=== PATIENT | male | born 1980 | race Hispanic/Latino ===

== ENCOUNTER 2017-06-29 18:13 | Inpatient (IN) | payer BC ==
[2017-06-29] MEDS ORDERED: Iohexol 240 (50 ml) PO ONE (18:38)
--- NOTE | 2017-06-29 18:41 | ED PDOC ---
HPI: General Adult Time Seen by Provider: 06/29/17 18:27 Chief Complaint (Nursing): Chest Pain Chief Complaint (Provider): Cough History Per: Patient History/Exam Limitations: no limitations Onset/Duration Of Symptoms: Days (10) Current Symptoms Are (Timing): Still Present Additional Complaint(s): Pt. with cough, congestion, runny nose, yellow phlegm for 3 days. Body aches, abd pain left side for 10 days. Nausea, nonbloody vomit for 3 days. No weakness, headaches, dizziness. Took oxy for pain. No dysuria. No diarrhea. Past Medical History Reviewed: Nursing Documentation, Vital Signs Vital Signs: Last Vital Signs Temp 99.9 F H 06/29/17 22:23 Pulse 108 H 06/29/17 21:15 Resp 18 06/29/17 21:15 BP 139/81 06/29/17 21:15 Pulse Ox 96 06/29/17 21:15 - Medical History PMH: Crohn's Disease, Diabetes - Surgical History Surgical History: No Surg Hx - Family History Family History: States: Unknown Family Hx - Living Arrangements Living Arrangements: With Family - Social History Current smoker - smoking cessation education provided: No Alcohol: None Drugs: Denies - Allergies Allergies/Adverse Reactions: Allergies Allergy/AdvReac Type Severity Reaction Status Date / Time clarithromycin [From Biaxin] Allergy RASH Verified 06/29/17 18:23 Review of Systems ROS Statement: Except As Marked, All Systems Reviewed And Found Negative Constitutional: Positive for: Chills ENT: Positive for: Nose Pain, Nose Discharge, Nose Congestion Respiratory: Positive for: Cough, Sputum Gastrointestinal: Positive for: Nausea, Vomiting, Abdominal Pain Musculoskeletal: Positive for: Other (body aches) Physical Exam - Reviewed Nursing Documentation Reviewed: Yes Vital Signs Reviewed: Yes - Physical Exam Appears: Positive for: Non-toxic, No Acute Distress Head Exam: Positive for: ATRAUMATIC, NORMAL INSPECTION, NORMOCEPHALIC Skin: Positive for: Normal Color, Warm, DRY Eye Exam: Positive for: EOMI, Normal appearance, PERRL ENT: Positive for: Nasal Congestion Neck: Positive for: Normal, Painless ROM, Supple Cardiovascular/Chest: Positive for: Regular Rate, Rhythm Respiratory: Positive for: CNT, Normal Breath Sounds Gastrointestinal/Abdominal: Positive for: Bowel Sounds, Soft, Tenderness (L side ) Back: Positive for: Normal Inspection Extremity: Positive for: Normal ROM. Negative for: Tenderness, Pedal Edema Neurologic/Psych: Positive for: Alert, Oriented - Laboratory Results Result Diagrams: 06/29/17 18:46 06/29/17 18:46 Interpretation Of Abn Labs: 17.2 wbc, flu pos - ECG ECG: Positive for: Interpreted By Me, Viewed By Me ECG Rhythm: Positive for: Normal QRS, Normal ST Segment, Sinus Rhythm O2 Sat by Pulse Oximetry: 99 Pulse Ox Interpretation: Normal - Radiology X-Ray: Read By Radiologist X-Ray Interpretation: No Acute Disease - CT Scan/US ct Other Rad Studies (CT/US): Read By Radiologist Other Rad Interpretation: no acute - Progress ED Course And Treament: 2356: Stable. No colitis. Will need admit for obs. 2359: Spoke with Dr. Burns. Will admit and give further orders when pt. reaches floor. Disposition - Clinical Impression Clinical Impression: Sepsis, Influenza - Patient ED Disposition Is Patient to be Admitted: Yes Counseled Patient/Family Regarding: Studies Performed, Diagnosis - Disposition Disposition Time: 00:01 Condition: FAIR - Pt Status Changed To: Hospital Disposition Of: Observation - POA Present On Arrival: None
--- NOTE | 2017-06-29 19:04 | RAD ---
HISTORY: Sepsis Patient COMPARISON: Chest with bilateral ribs 03/07/2009. FINDINGS: LUNGS: Diminished inspiratory volume. No acute infiltrate is identified bilaterally. PLEURA: No significant pleural effusion identified, no pneumothorax apparent. CARDIOVASCULAR: Normal. OSSEOUS STRUCTURES: No significant abnormalities. VISUALIZED UPPER ABDOMEN: Normal. OTHER FINDINGS: None. IMPRESSION: Diminished inspiratory volume without infiltrate, pleural effusion or pneumothorax identified bilaterally.
[2017-06-29 19:06] LABS: BASO # 0.1 K/uL (0.0-0.2); BASO % 0.7 % (0.0-2.0); EOS % 0.2 % (0.0-4.0); HEMOGLOBIN 15.4 g/dL (12.0-18.0); MEAN CELL VOLUME 85.1 fl (80.0-94.0); MEAN CORPUSCULAR HEMOGLOBIN 28.3 pg (27.0-31.0); MEAN CORPUSCULAR HGB CONC 33.2 g/dL (33.0-37.0); MEAN PLATELET VOLUME 7.8 fl (7.2-11.7); MONO # 1.7 K/uL (0.0-0.8); MONO % 9.9 % (0.0-10.0); NEUT # 14.3 K/uL (1.8-7.0); NEUT % 83.2 % (50.0-75.0); PLATELET COUNT 360 K/uL (130-400); RBC 5.45 Mil/uL (4.40-5.90); RED CELL DISTRIBUTION WIDTH 13.7 % (11.5-14.5); WHITE BLOOD COUNT 17.2 K/uL (4.8-10.8)
[2017-06-29 19:11] LABS: VENOUS BLOOD GAS BASE EXCESS 4.9 mmol/L (0.0-2.0); VENOUS BLOOD GAS PCO2 41 mmHg (40-60); VENOUS BLOOD GAS PO2 18 mm/Hg (30-55); VENOUS BLOOD PH 7.46 (7.32-7.43)
[2017-06-29 19:15] LABS: ALB/GLOB RATIO 1.1 (1.0-2.1); ALBUMIN 3.9 g/dL (3.5-5.0); ALT/SGPT 36 U/L (21-72); AST/SGOT 20 U/L (17-59); BLOOD UREA NITROGEN 15 mg/dl (9-20); CALCIUM 8.9 mg/dL (8.4-10.2); GFR AFRICAN-AMERICAN > 60; GFR NON-AFRICAN AMERICAN > 60; LIPASE 51 U/L (23-300); MAGNESIUM 1.6 MG/DL (1.6-2.3)
[2017-06-29] MEDS ORDERED: Iohexol 240 (50 ml) ONE (19:20)
[2017-06-29] MEDS: Sodium Chloride 0.9% 1,000 ML IV SCH ×2 (19:26→22:17)
[2017-06-29 19:37] LABS: INR 1.1 (0.9-1.2); PARTIAL THROMBOPLASTIN TIME 27.1 Seconds (25.6-37.1)
[2017-06-29 21:09] LABS: BANDS 2 % (0-2); EOSINOPHIL 1 % (0-7); LYMPHOCYTE 8 % (20-50); MONOCYTE 9 % (0-10); NEUTROPHIL 80 % (42-75); TOTAL CELLS COUNTED 100
[2017-06-29 21:10] LABS: HYPOCHROMIC SLIGHT; MICROCYTOSIS SLIGHT; PLATELET ESTIMATE NORMAL (NORMAL)
[2017-06-29] MEDS ORDERED: Sodium Chloride 0.9% 50 ML IV ONE (21:43)
[2017-06-29] MEDS ORDERED: Iohexol 300 100 ML IJ ONE (21:43)
[2017-06-29] MEDS ORDERED: Morphine 4 MG/ML VIAL IV ONE (21:52)
[2017-06-29] MEDS ORDERED: Morphine 4 MG/ML VIAL ONE (22:15)
[2017-06-29 23:11] LABS: SQUAMOUS EPITHIAL < 1 /hpf (0-5); URINE BACTERIA RARE (<OCC); URINE BILIRUBIN NEGATIVE (NEGATIVE); URINE BLOOD LARGE (NEGATIVE); URINE CLARITY SLIGHTY-CLOUDY (Clear); URINE COLOR YELLOW (YELLOW); URINE GLUCOSE (UA) >=500 mg/dL (Normal); URINE LEUKOCYTE ESTERASE NEG Leu/uL (Negative); URINE NITRATE NEGATIVE (NEGATIVE); URINE PROTEIN >=500 mg/dL (NEGATIVE); URINE UROBILINOGEN 0.2-1.0 mg/dL (0.2-1.0)
[2017-06-30] MEDS ORDERED: Sodium Chloride 0.45% 1,000 ML IV SCH ×2 (03:30→09:51)
[2017-06-30 05:55] LABS: BASO # 0.1 K/uL (0.0-0.2); BASO % 0.6 % (0.0-2.0); HEMOGLOBIN 13.6 g/dL (12.0-18.0); LYMPH # 1.4 K/uL (1.0-4.3); LYMPH % 7.9 % (20.0-40.0); MEAN CELL VOLUME 84.2 fl (80.0-94.0); MEAN CORPUSCULAR HEMOGLOBIN 28.3 pg (27.0-31.0); MEAN CORPUSCULAR HGB CONC 33.7 g/dL (33.0-37.0); MEAN PLATELET VOLUME 7.9 fl (7.2-11.7); MONO # 2.1 K/uL (0.0-0.8); MONO % 12.3 % (0.0-10.0); NEUT # 13.7 K/uL (1.8-7.0); NEUT % 79.2 % (50.0-75.0); RBC 4.79 Mil/uL (4.40-5.90); WHITE BLOOD COUNT 17.3 K/uL (4.8-10.8)
[2017-06-30 06:04] LABS: BLOOD UREA NITROGEN 16 mg/dl (9-20); CALCIUM 7.9 mg/dL (8.4-10.2); GFR AFRICAN-AMERICAN > 60; GFR NON-AFRICAN AMERICAN > 60
[2017-06-30] MEDS: Insulin Lispro (humaLOG) 100 Units/ml Inj SC SCH ×3 (06:50→16:28)
--- NOTE | 2017-06-30 08:33 | CARD ---
APPROVED REPORT EKG Measurement Heart [id number] <Conclusion> Sinus tachycardia Possible Left atrial enlargement Borderline ECG
--- NOTE | 2017-06-30 09:47 | CT ---
PROCEDURE: CT Abdomen and Pelvis with contrast HISTORY: abd pain COMPARISON: None. TECHNIQUE: Contrast dose: 90 cc Omnipaque 300 Radiation dose: Total exam DLP = 1110.53 mGy-cm. This CT exam was performed using one or more of the following dose reduction techniques: Automated exposure control, adjustment of the mA and/or kV according to patient size, and/or use of iterative reconstruction technique. FINDINGS: LOWER THORAX: Unremarkable. LIVER: Hepatic steatosis. No focal masses. No intrahepatic bile duct dilatation or perihepatic ascites. GALLBLADDER AND BILE DUCTS: Unremarkable. PANCREAS: Unremarkable. No gross lesion or ductal dilatation. SPLEEN: Unremarkable. ADRENALS: Unremarkable. No mass. KIDNEYS AND URETERS: Unremarkable. No hydronephrosis. No solid mass. VASCULATURE: Unremarkable. No aortic aneurysm. BOWEL: Thickening of the wall of the distal ileum extending to but not involving the ileocecal valve region. Findings are consistent with ileitis/ inflammatory bowel disease. The cecum and appendix are spared. APPENDIX: Normal appendix. PERITONEUM: Unremarkable. No free fluid. No free air. LYMPH NODES: Unremarkable. No enlarged lymph nodes. BLADDER: Unremarkable. REPRODUCTIVE: Unremarkable. BONES: No acute fracture. OTHER FINDINGS: None. IMPRESSION: Findings consistent with mild ileitis confined to the distal ileum without involvement of the cecum, ileocecal valve or appendix. Concordant results (preliminary interpretation) provided by codesy. Procedure Completed: 22:06 Preliminary ([facility]Rad) Report: Dictated and Authenticated: 22:38 Final Interpretation: 09:45 2017.
[2017-06-30] MEDS: Promethazine/Cod 6.25mg-10mg/5ml Syr UD PO PRN (12:54)
[2017-06-30] MEDS: levoFLOXacin 500 mg in D5W 500 MG/100 ML BAG IVPB SCH (12:56)
--- NOTE | 2017-06-30 15:02 | CP.PCM.CON ---
History of Present Illness - History of Present Illness History of Present Illness: 36 yo male with hx of DM and Chron's is admitted with severe flu symptoms and fecver and referred for ID eval and antibiotic management Pt. with cough, congestion, runny nose, yellow phlegm for 3 days. Body aches, abd pain left side 5 days. Nausea, nonbloody vomit for 3 days. No weakness, headaches, dizziness. Took oxy for pain. No dysuria. No diarrhea. - Medical History PMH: Crohn's Disease, Diabetes Review of Systems - Constitutional Constitutional: As Per HPI, Anorexia, Chills, Fever - EENT Eyes: absent: As Per HPI, Blind Spots, Blurred Vision, Change in Vision, Decreased Night Vision, Diplopia, Discharge, Dry Eye, Exophthalmos, Floaters, Irritation, Itchy Eyes, Loss of Peripheral Vision, Pain, Photophobia, Requires Corrective Lenses, Sees Flashes, Spots in Vision, Tunnel Vision, Other Visual Disturbances, Loss of Vision, Other Ears: absent: As Per HPI, Decreased Hearing, Ear Discharge, Ear Pain, Tinnitus, Abnormal Hearing, Disequilibrium, Dizziness, Other Nose/Mouth/Throat: absent: As Per HPI, Epistaxis, Nasal Congestion, Nasal Discharge, Nasal Obstruction, Nasal Trauma, Nose Pain, Post Nasal Drip, Sinus Pain, Sinus Pressure, Bleeding Gums, Change in Voice, Dental Pain, Dry Mouth, Dysphagia, Halitosis, Hoarsness, Lip Swelling, Mouth Lesions, Mouth Pain, Odynophagia, Sore Throat, Throat Swelling, Tongue Swelling, Facial Pain, Neck Pain, Neck Mass, Other - Cardiovascular Cardiovascular: absent: As Per HPI, Acrocyanosis, Chest Pain, Chest Pain at Rest , Chest Pain with Activity, Claudication, Diaphoresis, Dyspnea, Dyspnea on Exertion, Edema, Irregular Heart Rhythm, Pain Radiating to Arm/Neck/Jaw, Leg Edema, Leg Ulcers, Lightheadedness, Orthopnea, Palpitations, Paroxysmal Nocturnal Dyspnea, Pedal Edema, Radiating Pain, Rapid Heart Rate, Slow Heart Rate, Syncope, Other - Respiratory Respiratory: As Per HPI - Gastrointestinal Gastrointestinal: As Per HPI - Genitourinary Genitourinary: absent: As Per HPI, Change in Urinary Stream, Difficulty Urinating, Dysuria, Flank Pain, Hematuria, Pyuria, Nocturia, Urinary Incontinence, Urinary Frequency, Urinary Hesitance, Urinary Urgency, Voiding Freq/Small Amts, Freq UTI, Hx Renal/Bladder Calculi, Hx /Renal Surgery, Bladder Distension, Other - Musculoskeletal Musculoskeletal: absent: As Per HPI, Abnormal Gait, Arthralgias, Atrophy, Back Pain, Deformity, Joint Swelling, Limited Range of Motion, Loss of Height, Muscle Cramps, Muscle Weakness, Myalgias, Neck Pain, Numbness, Radiating Pain into Limb, Stiffness, Tingling, Other - Integumentary Integumentary: absent: As Per HPI, Acne, Alopecia, Bleeding Lesions, Change in Hair, Change in Nails, Change in Pigmentation, Changing Lesions, Dry Skin, Erythema, Furuncle, Hirsutism, Lesions, New Lesions, Non-Healing Lesions, Photosensitivity, Pruritus, Rash, Skin Pain, Skin Ulcer, Sores, Striae, Swelling , Unusual Bruising, Wounds, Jaundice, Other - Neurological Neurological: absent: As Per HPI, Abnormal Gait, Abnormal Hearing, Abnormal Movements, Abnormal Speech, Behavioral Changes, Burning Sensations, Confusion, Convulsions, Disequilibrium, Dizziness, Numbness, Focal Weakness, Frequent Falls , Headaches, Lack of Coordination, Loss of Vision, Memory Loss, Paresthesias, Radicular Pain, Restless Legs, Sensory Deficit, Syncope, Tingling, Tremor, Vertigo, Weakness, Other Visual Disturbances, Other - Psychiatric Psychiatric: absent: As Per HPI, Abnormal Sleep Pattern, Anhedonia, Anxiety, Auditory Hallucinations, Behavioral Changes, Change in Appetite, Change in Libido, Confusion, Depression, Difficulty Concentrating, Hallucinations, Homicidal Ideation, Hopelessness, Irritability, Memory Loss, Mood Swings, Panic Attacks, Paranoia, Suicidal Ideation, Visual Hallucinations, Tactile Hallucinations, Other - Endocrine Endocrine: absent: As Per HPI, Change in Body Appearance, Change in Libido, Cold Intolorance, Deepening of Voice, Excessive Sweating, Fatigue, Flushing, Heat Intolorance, Increase in Ring/Shoe/Hat Size, Palpitations, Polydipsia, Polyphagia, Polyuria, Other - Hematologic/Lymphatic Hematologic: absent: As Per HPI, Easy Bleeding, Easy Bruising, Lymphadenopathy, Other Past Patient History - Past Social History Smoking Status: Current Some Days Smoker - ENDOCRINE/METABOLIC Hx Endocrine Disorders: Yes - HEMATOLOGICAL/ONCOLOGICAL Hx AIDS: Yes Hx Human Immunodeficiency Virus (HIV): Yes - MUSCULOSKELETAL/RHEUMATOLOGICAL Hx Falls: Yes - GASTROINTESTINAL Hx Crohn's Disease: Yes - PSYCHIATRIC Hx Substance Use: No - ANESTHESIA Hx Anesthesia: Yes Hx Anesthesia Reactions: No Hx Malignant Hyperthermia: No Meds Allergies/Adverse Reactions: Allergies Allergy/AdvReac Type Severity Reaction Status Date / Time clarithromycin [From Biaxin] Allergy RASH Verified 06/29/17 18:23 - Medications Medications: Current Medications Acetaminophen (Tylenol 325mg Tab) 650 mg PO Q4 PRN PRN Reason: fever >100 Last Admin: 06/30/17 04:25 Dose: 650 mg Acetaminophen (Tylenol 325mg Tab) 650 mg PO Q4 PRN PRN Reason: Pain, moderate (4-7) Last Admin: 06/30/17 08:36 Dose: 650 mg Benzonatate (Tessalon Perles) 100 mg PO TID PRN PRN Reason: Cough Last Admin: 06/30/17 10:18 Dose: 100 mg Gabapentin (Neurontin) 300 mg PO TID [facility] Last Admin: 06/30/17 13:04 Dose: 300 mg Dextrose/Sodium Chloride (Dextrose 5%-0.9% Ns 500 Ml) 1,000 mls @ 100 mls/hr IV .Q10H [facility] Stop: 07/01/17 12:31 Last Admin: 06/30/17 14:36 Dose: 100 mls/hr Levofloxacin/Dextrose (Levaquin 500mg) 500 mg in 100 mls @ 100 mls/hr IVPB DAILY [facility] PRN Reason: Protocol Last Admin: 06/30/17 12:56 Dose: 100 mls/hr Insulin Human Lispro (Humalog) 0 units SC ACHS [facility] PRN Reason: Protocol Last Admin: 06/30/17 12:53 Dose: 3 u Mesalamine (Delzicol) 800 mg PO DAILY [facility] Last Admin: 06/30/17 08:33 Dose: 800 mg Ondansetron HCl (Zofran Inj) 4 mg IVP Q6 PRN PRN Reason: Nausea/Vomiting Last Admin: 06/30/17 12:53 Dose: 4 mg Oseltamivir Phosphate (Tamiflu Cap) 75 mg PO BID [facility] PRN Reason: Protocol Last Admin: 06/30/17 08:33 Dose: 75 mg Promethazine HCl/Codeine (Phenergan/Codeine Oral Syrup) 10 ml PO Q6 PRN PRN Reason: Cough Last Admin: 06/30/17 12:54 Dose: 10 ml Results - Vital Signs Recent Vital Signs: Last Vital Signs Temp 99.1 F 06/30/17 12:00 Pulse 94 H 06/30/17 12:00 Resp 18 06/30/17 12:00 BP 137/82 06/30/17 12:00 Pulse Ox 97 06/30/17 12:00 - Labs Result Diagrams: 06/30/17 04:52 06/30/17 04:52 Labs: Laboratory Results - last 24 hr 06/29/17 06/29/17 06/29/17 18:39 18:46 18:46 WBC 17.2 H RBC 5.45 Hgb 15.4 Hct 46.3 MCV 85.1 MCH 28.3 MCHC 33.2 RDW 13.7 Plt Count 360 MPV 7.8 Neut % (Auto) 83.2 H Lymph % (Auto) 6.0 L [place] % (Auto) 9.9 Eos % (Auto) 0.2 Baso % (Auto) 0.7 Neut # 14.3 H Lymph # 1.0 [place] # 1.7 H Eos # 0.0 Baso # 0.1 Neutrophils % (Manual) 80 H Band Neutrophils % 2 Lymphocytes % (Manual) 8 L Monocytes % (Manual) 9 Eosinophils % (Manual) 1 Platelet Estimate Normal Hypochromasia (manual) Slight Microcytosis (manual) Slight PT INR APTT pO2 VBG pH VBG pCO2 VBG HCO3 VBG Total CO2 VBG O2 Sat (Calc) VBG Base Excess VBG Potassium Glucose Lactate FiO2 Sodium 136 Potassium 4.2 Chloride 100 Carbon Dioxide 25 Anion Gap 15 BUN 15 Creatinine 1.1 Est GFR ( Amer) > 60 Est GFR (Non-Af Amer) > 60 POC Glucose (mg/dL) 269 H Random Glucose 278 H Calcium 8.9 Phosphorus 2.8 Magnesium 1.6 Total Bilirubin 0.4 AST 20 ALT 36 Alkaline Phosphatase 77 Total Protein 7.5 Albumin 3.9 Globulin 3.6 Albumin/Globulin Ratio 1.1 Lipase 51 Venous Blood Potassium Urine Color Urine Clarity Urine pH Ur Specific [place] Urine Protein Urine Glucose (UA) Urine Ketones Urine Blood Urine Nitrate Urine Bilirubin Urine Urobilinogen Ur Leukocyte Esterase Urine RBC (Auto) Urine Microscopic WBC Ur Squamous Epith Cells Urine Bacteria Influenza Typ A,B (EIA) 01/05/0606/29/17 06/29/17 18:46 18:46 19:00 WBC RBC Hgb Hct MCV MCH MCHC RDW Plt Count MPV Neut % (Auto) Lymph % (Auto) [place] % (Auto) Eos % (Auto) Baso % (Auto) Neut # Lymph # [place] # Eos # Baso # Neutrophils % (Manual) Band Neutrophils % Lymphocytes % (Manual) Monocytes % (Manual) Eosinophils % (Manual) Platelet Estimate Hypochromasia (manual) Microcytosis (manual) PT 12.0 INR 1.1 APTT 27.1 pO2 18 L VBG pH 7.46 H VBG pCO2 41 VBG HCO3 26.9 VBG Total CO2 30.5 H VBG O2 Sat (Calc) 42.5 VBG Base Excess 4.9 H VBG Potassium 4.3 Glucose 286 H Lactate 1.7 FiO2 21.0 Sodium 132.0 Potassium Chloride 97.0 L Carbon Dioxide Anion Gap BUN Creatinine Est GFR ( Amer) Est GFR (Non-Af Amer) POC Glucose (mg/dL) Random Glucose Calcium Phosphorus Magnesium Total Bilirubin AST ALT Alkaline Phosphatase Total Protein Albumin Globulin Albumin/Globulin Ratio Lipase Venous Blood Potassium 4.3 Urine Color Urine Clarity Urine pH Ur Specific [place] Urine Protein Urine Glucose (UA) Urine Ketones Urine Blood Urine Nitrate Urine Bilirubin Urine Urobilinogen Ur Leukocyte Esterase Urine RBC (Auto) Urine Microscopic WBC Ur Squamous Epith Cells Urine Bacteria Influenza Typ A,B (EIA) Pos for influenza a H 06/29/17 06/30/17 06/30/17 23:01 04:52 04:52 WBC 17.3 H RBC 4.79 Hgb 13.6 Hct 40.3 MCV 84.2 MCH 28.3 MCHC 33.7 RDW 14.0 Plt Count 334 MPV 7.9 Neut % (Auto) 79.2 H Lymph % (Auto) 7.9 L [place] % (Auto) 12.3 H Eos % (Auto) 0.0 Baso % (Auto) 0.6 Neut # 13.7 H Lymph # 1.4 [place] # 2.1 H Eos # 0.0 Baso # 0.1 Neutrophils % (Manual) Band Neutrophils % Lymphocytes % (Manual) Monocytes % (Manual) Eosinophils % (Manual) Platelet Estimate Hypochromasia (manual) Microcytosis (manual) PT INR APTT pO2 VBG pH VBG pCO2 VBG HCO3 VBG Total CO2 VBG O2 Sat (Calc) VBG Base Excess VBG Potassium Glucose Lactate FiO2 Sodium 134 Potassium 3.8 Chloride 98 Carbon Dioxide 28 Anion Gap 12 BUN 16 Creatinine 1.2 Est GFR ( Amer) > 60 Est GFR (Non-Af Amer) > 60 POC Glucose (mg/dL) Random Glucose 195 H Calcium 7.9 L Phosphorus Magnesium Total Bilirubin AST ALT Alkaline Phosphatase Total Protein Albumin Globulin Albumin/Globulin Ratio Lipase Venous Blood Potassium Urine Color Yellow Urine Clarity Slighty-cloudy Urine pH 5.0 Ur Specific [place] 1.036 H Urine Protein >=500 Urine Glucose (UA) >=500 Urine Ketones Negative Urine Blood Large Urine Nitrate Negative Urine Bilirubin Negative Urine Urobilinogen 0.2-1.0 Ur Leukocyte Esterase Neg Urine RBC (Auto) 31 H Urine Microscopic WBC 4 Ur Squamous Epith Cells < 1 Urine Bacteria Rare Influenza Typ A,B (EIA) 06/30/17 06/30/17 06:13 11:13 WBC RBC Hgb Hct MCV MCH MCHC RDW Plt Count MPV Neut % (Auto) Lymph % (Auto) [place] % (Auto) Eos % (Auto) Baso % (Auto) Neut # Lymph # [place] # Eos # Baso # Neutrophils % (Manual) Band Neutrophils % Lymphocytes % (Manual) Monocytes % (Manual) Eosinophils % (Manual) Platelet Estimate Hypochromasia (manual) Microcytosis (manual) PT INR APTT pO2 VBG pH VBG pCO2 VBG HCO3 VBG Total CO2 VBG O2 Sat (Calc) VBG Base Excess VBG Potassium Glucose Lactate FiO2 Sodium Potassium Chloride Carbon Dioxide Anion Gap BUN Creatinine Est GFR ( Amer) Est GFR (Non-Af Amer) POC Glucose (mg/dL) 199 H 207 H Random Glucose Calcium Phosphorus Magnesium Total Bilirubin AST ALT Alkaline Phosphatase Total Protein Albumin Globulin Albumin/Globulin Ratio Lipase Venous Blood Potassium Urine Color Urine Clarity Urine pH Ur Specific [place] Urine Protein Urine Glucose (UA) Urine Ketones Urine Blood Urine Nitrate Urine Bilirubin Urine Urobilinogen Ur Leukocyte Esterase Urine RBC (Auto) Urine Microscopic WBC Ur Squamous Epith Cells Urine Bacteria Influenza Typ A,B (EIA) Assessment & Plan (1) Influenza Status: Acute (2) Sepsis Status: Acute - Assessment and Plan (Free Text) Assessment: r/o exac chrons r/o early pneumonia no evidence of meningitis await cuktures cont iv antibiotics
--- NOTE | 2017-06-30 15:57 | HP ---
HISTORY OF PRESENT ILLNESS: Mr. Trimble is a 36-year-old male, who was admitted via the emergency room because of cough, chest congestion, runny nose, yellow sputum for 3 days prior to presentation associated with body aches and pains and diarrhea with nonbloody vomitus for several days. He was tested in the emergency room and found to have the flu. PAST MEDICAL HISTORY: He has a past medical history of Crohn's disease and diabetes. FAMILY HISTORY: Nonrevealing. SOCIAL HISTORY: He does not smoke or drink. REVIEW OF SYSTEMS: Essentially remarkable for the generalized body aches and pains, fever, chills and abdominal discomfort with diarrhea for the past several days. PHYSICAL EXAMINATION: GENERAL: The patient is alert, oriented, appears clinically ill. VITAL SIGNS: Blood pressure 139/81, pulse of 108, respiratory rate is 18. He is afebrile to low-grade temp of 99.9 degrees Fahrenheit, O2 sat 96% on room air. SKIN: Shows poor turgor. Mild dry mucosa. HEENT: Pupils equal, reactive to light and accommodation. Eyes sunken. Mild dry mucosa. LUNGS: Fair aeration with scattered rales. HEART: S1 and S2. ABDOMEN: Soft. Midepigastric tenderness. GENITALIA: Normal. RECTAL: Normal. EXTREMITIES: Show no edema or cyanosis. CENTRAL NERVOUS SYSTEM: Grossly intact. LABORATORY DATA: Remarkable for sodium of 134, potassium 3.8, BUN of 16, creatinine 1.2, serum glucose 195. WBC 17.3, hemoglobin 13.6, platelet count of 334,000. Chest x-ray: No acute cardiopulmonary pathology noted. CT scan of abdomen and pelvis: Mild ileitis confined to the distal ileum. EKG: Sinus tachycardia, possible left atrial enlargement. Influenza A and B positive. IMPRESSION: Acute viral infection (influenza); gastroenteritis, probably secondary to the influenza; history of Crohn's disease; history of diabetes mellitus with hyperglycemia, poorly controlled. PLAN: IV hydration, Tylenol p.r.n., Tamiflu, Infectious Disease evaluation. We will give the patient IV antibiotics for now. Further therapy will depend on findings. Sathya Burns MD
[2017-07-01] MEDS: Insulin Lispro (humaLOG) 100 Units/ml Inj SC SCH ×5 (00:18→23:07)
[2017-07-01 08:05] LABS: BASO # 0.1 K/uL (0.0-0.2); BASO % 0.6 % (0.0-2.0); EOS % 0.1 % (0.0-4.0); HEMOGLOBIN 13.2 g/dL (12.0-18.0); LYMPH # 2.1 K/uL (1.0-4.3); LYMPH % 13.9 % (20.0-40.0); MEAN CELL VOLUME 84.1 fl (80.0-94.0); MEAN CORPUSCULAR HEMOGLOBIN 28.9 pg (27.0-31.0); MEAN CORPUSCULAR HGB CONC 34.4 g/dL (33.0-37.0); MEAN PLATELET VOLUME 7.9 fl (7.2-11.7); MONO # 2.7 K/uL (0.0-0.8); MONO % 18.5 % (0.0-10.0); NEUT # 9.9 K/uL (1.8-7.0); NEUT % 66.9 % (50.0-75.0); NRBC % 0.1 % (0.0-0.0); RBC 4.57 Mil/uL (4.40-5.90); RED CELL DISTRIBUTION WIDTH 13.5 % (11.5-14.5); WHITE BLOOD COUNT 14.8 K/uL (4.8-10.8)
[2017-07-01 08:17] LABS: BLOOD UREA NITROGEN 19 mg/dl (9-20); CALCIUM 7.7 mg/dL (8.4-10.2); GFR AFRICAN-AMERICAN > 60; GFR NON-AFRICAN AMERICAN > 60
[2017-07-01] MEDS: levoFLOXacin 500 mg in D5W 500 MG/100 ML BAG IVPB SCH (08:39)
[2017-07-01] MEDS: Promethazine/Cod 6.25mg-10mg/5ml Syr UD PO PRN ×2 (08:44→16:48)
--- NOTE | 2017-07-01 09:32 | CP.PCM.PN ---
Subjective - Date & Time of Evaluation Date of Evaluation: 07/01/17 Time of Evaluation: 09:32 - Subjective Subjective: FEELS ILL BUT NAUSEA AND VOMITING HAVE IMPROVED FEBRILE TO 103F LAST NIGHT STILL WEAK WITH BODYACHES Objective - Vital Signs/Intake and Output Vital Signs (last 24 hours): Temp Pulse Resp BP Pulse Ox 99 F 95 H 20 147/85 97 07/01/17 08:48 07/01/17 07:48 07/01/17 07:48 07/01/17 07:48 07/01/17 07:48 - Medications Medications: Current Medications Acetaminophen (Tylenol 325mg Tab) 650 mg PO Q4 PRN PRN Reason: fever >100 Last Admin: 06/30/17 22:52 Dose: 650 mg Acetaminophen (Tylenol 325mg Tab) 650 mg PO Q4 PRN PRN Reason: Pain, moderate (4-7) Last Admin: 07/01/17 08:48 Dose: 650 mg Benzonatate (Tessalon Perles) 100 mg PO TID PRN PRN Reason: Cough Last Admin: 06/30/17 10:18 Dose: 100 mg Gabapentin (Neurontin) 300 mg PO TID [facility] Last Admin: 07/01/17 08:37 Dose: 300 mg Dextrose/Sodium Chloride (Dextrose 5%-0.9% Ns 500 Ml) 1,000 mls @ 100 mls/hr IV .Q10H [facility] Stop: 07/01/17 12:31 Last Admin: 07/01/17 08:39 Dose: 100 mls/hr Levofloxacin/Dextrose (Levaquin 500mg) 500 mg in 100 mls @ 100 mls/hr IVPB DAILY [facility] PRN Reason: Protocol Last Admin: 07/01/17 08:39 Dose: 100 mls/hr Ceftriaxone Sodium 1 gm/ (Sodium Chloride) 100 mls @ 100 mls/hr IVPB DAILY [facility] PRN Reason: Protocol Last Admin: 07/01/17 08:38 Dose: 100 mls/hr Insulin Human Lispro (Humalog) 0 units SC ACHS [facility] PRN Reason: Protocol Last Admin: 07/01/17 08:36 Dose: 4 u Mesalamine (Delzicol) 800 mg PO DAILY [facility] Last Admin: 07/01/17 08:36 Dose: 800 mg Ondansetron HCl (Zofran Inj) 4 mg IVP Q6 PRN PRN Reason: Nausea/Vomiting Last Admin: 06/30/17 12:53 Dose: 4 mg Oseltamivir Phosphate (Tamiflu Cap) 75 mg PO BID [facility] PRN Reason: Protocol Last Admin: 07/01/17 08:36 Dose: 75 mg Promethazine HCl/Codeine (Phenergan/Codeine Oral Syrup) 10 ml PO Q6 PRN PRN Reason: Cough Last Admin: 07/01/17 08:44 Dose: 10 ml - Labs Labs: 07/01/17 07:10 07/01/17 07:10 PT 12.0 Seconds (9.8-13.1) 06/29/17 18:46 INR 1.1 (0.9-1.2) 06/29/17 18:46 APTT 27.1 Seconds (25.6-37.1) 06/29/17 18:46 - Constitutional Appears: In Acute Distress - Head Exam Head Exam: ATRAUMATIC, NORMAL INSPECTION, NORMOCEPHALIC - Eye Exam Eye Exam: EOMI, Normal appearance, PERRL Pupil Exam: NORMAL ACCOMODATION, PERRL - ENT Exam ENT Exam: Mucous Membranes Moist, Normal Exam - Neck Exam Neck Exam: Full ROM, Normal Inspection. absent: Lymphadenopathy - Respiratory Exam Respiratory Exam: Clear to Ausculation Bilateral, NORMAL BREATHING PATTERN - Cardiovascular Exam Cardiovascular Exam: REGULAR RHYTHM, +S1, +S2. absent: Murmur - GI/Abdominal Exam GI & Abdominal Exam: Soft, Normal Bowel Sounds. absent: Tenderness - Rectal Exam Rectal Exam: NORMAL INSPECTION - Extremities Exam Extremities Exam: Full ROM, Normal Capillary Refill, Normal Inspection. absent : Joint Swelling, Pedal Edema - Back Exam Back Exam: NORMAL INSPECTION - Neurological Exam Neurological Exam: Alert, Awake, CN II-XII Intact, Normal Gait, Oriented x3 - Psychiatric Exam Psychiatric exam: Normal Affect, Normal Mood - Skin Skin Exam: Dry, Intact, Normal Color, Warm Assessment and Plan - Assessment and Plan (Free Text) Assessment: FLU SEPSIS DM Plan: CONTINUE PRESENT RX ID CONSULT APPRECIATED
[2017-07-01] MEDS ORDERED: Sodium Chloride 3% for Inhalation 4 ML VIAL.NEB IH PRN (20:56)
[2017-07-02 06:24] LABS: BASO # 0.1 K/uL (0.0-0.2); BASO % 0.7 % (0.0-2.0); EOS # 0.3 K/uL (0.0-0.7); EOS % 3.5 % (0.0-4.0); HEMOGLOBIN 12.7 g/dL (12.0-18.0); LYMPH # 3.7 K/uL (1.0-4.3); LYMPH % 39.7 % (20.0-40.0); MEAN CORPUSCULAR HEMOGLOBIN 28.6 pg (27.0-31.0); MEAN CORPUSCULAR HGB CONC 33.7 g/dL (33.0-37.0); MEAN PLATELET VOLUME 7.6 fl (7.2-11.7); MONO # 1.5 K/uL (0.0-0.8); MONO % 16.3 % (0.0-10.0); NEUT # 3.7 K/uL (1.8-7.0); NEUT % 39.8 % (50.0-75.0); NRBC % 0.1 % (0.0-0.0); RBC 4.45 Mil/uL (4.40-5.90); RED CELL DISTRIBUTION WIDTH 13.7 % (11.5-14.5); WHITE BLOOD COUNT 9.2 K/uL (4.8-10.8)
[2017-07-02 06:56] LABS: BLOOD UREA NITROGEN 16 mg/dl (9-20); CALCIUM 8.1 mg/dL (8.4-10.2); GFR AFRICAN-AMERICAN > 60; GFR NON-AFRICAN AMERICAN > 60
[2017-07-02] MEDS: Insulin Lispro (humaLOG) 100 Units/ml Inj SC SCH ×4 (07:03→22:46)
[2017-07-02] MEDS: levoFLOXacin 500 mg in D5W 500 MG/100 ML BAG IVPB SCH (10:00)
--- NOTE | 2017-07-02 11:21 | CP.PCM.PN ---
Subjective - Date & Time of Evaluation Date of Evaluation: 07/02/17 Time of Evaluation: 11:22 - Subjective Subjective: CLINICALLY IMPROVING AFEBRILE STILL WEAK COUGHING Objective - Vital Signs/Intake and Output Vital Signs (last 24 hours): Temp Pulse Resp BP Pulse Ox 97.4 F L 97 H 18 174/112 H 98 07/02/17 11:06 07/02/17 11:06 07/02/17 11:06 07/02/17 11:06 07/02/17 11:06 Intake and Output: 07/02/17 07/02/17 06:59 18:59 Intake Total 700 Balance 700 - Medications Medications: Current Medications Acetaminophen (Tylenol 325mg Tab) 650 mg PO Q4 PRN PRN Reason: fever >100 Last Admin: 06/30/17 22:52 Dose: 650 mg Acetaminophen (Tylenol 325mg Tab) 650 mg PO Q4 PRN PRN Reason: Pain, moderate (4-7) Last Admin: 07/02/17 01:17 Dose: 650 mg Benzonatate (Tessalon Perles) 100 mg PO TID PRN PRN Reason: Cough Last Admin: 07/01/17 20:25 Dose: 100 mg Gabapentin (Neurontin) 300 mg PO TID ELZBIETA Last Admin: 07/02/17 10:00 Dose: 300 mg Levofloxacin/Dextrose (Levaquin 500mg) 500 mg in 100 mls @ 100 mls/hr IVPB DAILY ELZBIETA PRN Reason: Protocol Last Admin: 07/02/17 10:00 Dose: 100 mls/hr Ceftriaxone Sodium 1 gm/ (Sodium Chloride) 50 mls @ 50 mls/hr IVPB DAILY ELZBIETA PRN Reason: Protocol Insulin Human Lispro (Humalog) 0 units SC ACHS ELZBIETA PRN Reason: Protocol Last Admin: 07/02/17 07:03 Dose: 4 u Mesalamine (Delzicol) 800 mg PO DAILY ELZBIETA Last Admin: 07/02/17 10:00 Dose: 800 mg Ondansetron HCl (Zofran Inj) 4 mg IVP Q6 PRN PRN Reason: Nausea/Vomiting Last Admin: 07/01/17 13:26 Dose: 4 mg Oseltamivir Phosphate (Tamiflu Cap) 75 mg PO BID ELZBIETA PRN Reason: Protocol Last Admin: 07/02/17 10:00 Dose: 75 mg Promethazine HCl (Phenergan Syrup) 12.5 mg PO Q6 ELZBIETA - Labs Labs: 07/02/17 06:14 07/02/17 06:14 PT 12.0 Seconds (9.8-13.1) 06/29/17 18:46 INR 1.1 (0.9-1.2) 06/29/17 18:46 APTT 27.1 Seconds (25.6-37.1) 06/29/17 18:46 - Constitutional Appears: Chronically Ill - Head Exam Head Exam: ATRAUMATIC, NORMAL INSPECTION, NORMOCEPHALIC - Eye Exam Eye Exam: EOMI, Normal appearance, PERRL Pupil Exam: NORMAL ACCOMODATION, PERRL - ENT Exam ENT Exam: Mucous Membranes Moist, Normal Exam - Neck Exam Neck Exam: Full ROM, Normal Inspection. absent: Lymphadenopathy - Respiratory Exam Respiratory Exam: Clear to Ausculation Bilateral, NORMAL BREATHING PATTERN - Cardiovascular Exam Cardiovascular Exam: REGULAR RHYTHM, +S1, +S2. absent: Murmur - GI/Abdominal Exam GI & Abdominal Exam: Soft, Normal Bowel Sounds. absent: Tenderness - Rectal Exam Rectal Exam: NORMAL INSPECTION - Extremities Exam Extremities Exam: Full ROM, Normal Capillary Refill, Normal Inspection. absent : Joint Swelling, Pedal Edema - Back Exam Back Exam: NORMAL INSPECTION - Neurological Exam Neurological Exam: Alert, Awake, CN II-XII Intact, Normal Gait, Oriented x3 - Psychiatric Exam Psychiatric exam: Normal Affect, Normal Mood - Skin Skin Exam: Dry, Intact, Normal Color, Warm Assessment and Plan - Assessment and Plan (Free Text) Assessment: INFLUENZA HTN SEPSIS DM--UNCONTROLLED--TYPE 2 Plan: CONTINUE PRESENT RX D/C HOME IN AM IF STABLE
[2017-07-02] MEDS ORDERED: Sodium Chloride 0.45% 1,000 ML IV SCH (11:30)
[2017-07-02] MEDS: Oxycodone/Acetaminophen 5/325 mg Tab PO PRN ×2 (12:58→19:55)
--- NOTE | 2017-07-02 13:45 | CP.PCM.PN ---
Subjective - Date & Time of Evaluation Date of Evaluation: 07/02/17 Time of Evaluation: 07:00 - Subjective Subjective: 36 yo male with hx of DM and Chron's is admitted with severe flu symptoms and fever and referred for ID eval and antibiotic management Objective - Vital Signs/Intake and Output Vital Signs (last 24 hours): Temp Pulse Resp BP Pulse Ox 97.4 F L 76 20 174/112 H 97 07/02/17 12:00 07/02/17 12:00 07/02/17 12:00 07/02/17 11:43 07/02/17 12:00 Intake and Output: 07/02/17 07/02/17 06:59 18:59 Intake Total 700 Balance 700 - Medications Medications: Current Medications Acetaminophen (Tylenol 325mg Tab) 650 mg PO Q4 PRN PRN Reason: fever >100 Last Admin: 06/30/17 22:52 Dose: 650 mg Acetaminophen (Tylenol 325mg Tab) 650 mg PO Q4 PRN PRN Reason: Pain, moderate (4-7) Last Admin: 07/02/17 01:17 Dose: 650 mg Benzonatate (Tessalon Perles) 100 mg PO TID PRN PRN Reason: Cough Last Admin: 07/02/17 11:43 Dose: 100 mg Gabapentin (Neurontin) 300 mg PO TID [facility] Last Admin: 07/02/17 12:59 Dose: 300 mg Levofloxacin/Dextrose (Levaquin 500mg) 500 mg in 100 mls @ 100 mls/hr IVPB DAILY ELZBIETA PRN Reason: Protocol Last Admin: 07/02/17 10:00 Dose: 100 mls/hr Ceftriaxone Sodium 1 gm/ (Sodium Chloride) 50 mls @ 50 mls/hr IVPB DAILY ELZBIETA PRN Reason: Protocol Last Admin: 07/02/17 10:00 Dose: 50 mls/hr Sodium Chloride (Sodium Chloride 0.45%) 1,000 mls @ 40 mls/hr IV .Q24H [facility] Stop: 07/03/17 11:24 Last Admin: 07/02/17 11:52 Dose: 40 mls/hr Insulin Human Lispro (Humalog) 0 units SC ACHS ELZBIETA PRN Reason: Protocol Last Admin: 07/02/17 12:59 Dose: 2 u Mesalamine (Delzicol) 800 mg PO DAILY [facility] Last Admin: 07/02/17 10:00 Dose: 800 mg Ondansetron HCl (Zofran Inj) 4 mg IVP Q6 PRN PRN Reason: Nausea/Vomiting Last Admin: 07/01/17 13:26 Dose: 4 mg Oseltamivir Phosphate (Tamiflu Cap) 75 mg PO BID ELZBIETA PRN Reason: Protocol Last Admin: 07/02/17 10:00 Dose: 75 mg Oxycodone/Acetaminophen (Percocet 5/325 Mg Tab) 1 tab PO Q6 PRN PRN Reason: Pain, moderate (4-7) Stop: 07/05/17 11:19 Last Admin: 07/02/17 12:58 Dose: 1 tab Promethazine HCl (Phenergan Syrup) 12.5 mg PO Q6 [facility] - Labs Labs: 07/02/17 06:14 07/02/17 06:14 PT 12.0 Seconds (9.8-13.1) 06/29/17 18:46 INR 1.1 (0.9-1.2) 06/29/17 18:46 APTT 27.1 Seconds (25.6-37.1) 06/29/17 18:46 - Constitutional Appears: Non-toxic, Chronically Ill - Head Exam Head Exam: NORMOCEPHALIC - Eye Exam Eye Exam: PERRL. absent: Scleral icterus - ENT Exam ENT Exam: Mucous Membranes Dry - Neck Exam Neck Exam: absent: Lymphadenopathy - Respiratory Exam Respiratory Exam: Decreased Breath Sounds, Rhonchi - Cardiovascular Exam Cardiovascular Exam: REGULAR RHYTHM, +S1, +S2 - GI/Abdominal Exam GI & Abdominal Exam: Distended, Soft. absent: Tenderness - Rectal Exam Rectal Exam: Deferred - Exam Exam: NORMAL INSPECTION - Extremities Exam Extremities Exam: absent: Pedal Edema - Back Exam Back Exam: absent: CVA tenderness (L), CVA tenderness (R) - Neurological Exam Neurological Exam: Alert, Awake, Oriented x3 - Psychiatric Exam Psychiatric exam: Normal Mood - Skin Skin Exam: Dry Assessment and Plan (1) Influenza Status: Acute (2) Sepsis Status: Acute
[2017-07-02] MEDS: Promethazine 12.5 mg/10 ml Syrup PO SCH ×2 (16:44→22:47)
[2017-07-03 00:10] VITALS: RESP 18; O2SAT 97
[2017-07-03] MEDS: Promethazine 12.5 mg/10 ml Syrup PO SCH ×2 (05:24→13:10)
[2017-07-03] MEDS: Insulin Lispro (humaLOG) 100 Units/ml Inj SC SCH ×2 (06:58→16:08)
--- NOTE | 2017-07-03 08:44 | CP.PCM.DIS ---
Provider - Provider Date of Admission: 06/30/17 12:48 Attending physician: Sathya Burns MD Time Spent in preparation of Discharge (in minutes): 35 Diagnosis - Discharge Diagnosis (1) Diabetes 1.5, managed as type 2 Status: Acute (2) Hypertension Status: Acute (3) Crohns disease Status: Acute (4) Influenza Status: Acute (5) Sepsis Status: Acute Hospital Course - Lab Results Lab Results: Micro Results 07/02/17 16:05 Sputum Gram Stain - Final 06/29/17 18:46 Blood Blood Culture - Preliminary NO GROWTH AFTER 3 DAYS 06/29/17 18:46 Blood Blood Culture - Preliminary NO GROWTH AFTER 3 DAYS 06/29/17 23:01 Urine Urine Culture - Final No Growth (<1,000 CFU/ML) Most Recent Lab Values WBC 9.2 K/uL (4.8-10.8) 07/02/17 06:14 RBC 4.45 Mil/uL (4.40-5.90) 07/02/17 06:14 Hgb 12.7 g/dL (12.0-18.0) 07/02/17 06:14 Hct 37.8 % (35.0-51.0) 07/02/17 06:14 MCV 85.0 fl (80.0-94.0) 07/02/17 06:14 MCH 28.6 pg (27.0-31.0) 07/02/17 06:14 MCHC 33.7 g/dL (33.0-37.0) 07/02/17 06:14 RDW 13.7 % (11.5-14.5) 07/02/17 06:14 Plt Count 306 K/uL (130-400) 07/02/17 06:14 MPV 7.6 fl (7.2-11.7) 07/02/17 06:14 Neut % (Auto) 39.8 % (50.0-75.0) L 07/02/17 06:14 Lymph % (Auto) 39.7 % (20.0-40.0) 07/02/17 06:14 Stark % (Auto) 16.3 % (0.0-10.0) H 07/02/17 06:14 Eos % (Auto) 3.5 % (0.0-4.0) 07/02/17 06:14 Baso % (Auto) 0.7 % (0.0-2.0) 07/02/17 06:14 Neut # 3.7 K/uL (1.8-7.0) 07/02/17 06:14 Lymph # 3.7 K/uL (1.0-4.3) 07/02/17 06:14 Stark # 1.5 K/uL (0.0-0.8) H 07/02/17 06:14 Eos # 0.3 K/uL (0.0-0.7) 07/02/17 06:14 Baso # 0.1 K/uL (0.0-0.2) 07/02/17 06:14 Neutrophils % (Manual) 80 % (42-75) H 06/29/17 18:46 Band Neutrophils % 2 % (0-2) 06/29/17 18:46 Lymphocytes % (Manual) 8 % (20-50) L 06/29/17 18:46 Monocytes % (Manual) 9 % (0-10) 06/29/17 18:46 Eosinophils % (Manual) 1 % (0-7) 06/29/17 18:46 Platelet Estimate Normal (NORMAL) 06/29/17 18:46 Hypochromasia (manual) Slight 06/29/17 18:46 Microcytosis (manual) Slight 06/29/17 18:46 PT 12.0 Seconds (9.8-13.1) 06/29/17 18:46 INR 1.1 (0.9-1.2) 06/29/17 18:46 APTT 27.1 Seconds (25.6-37.1) 06/29/17 18:46 pO2 18 mm/Hg (30-55) L 06/29/17 19:00 VBG pH 7.46 (7.32-7.43) H 06/29/17 19:00 VBG pCO2 41 mmHg (40-60) 06/29/17 19:00 VBG HCO3 26.9 mmol/L 06/29/17 19:00 VBG Total CO2 30.5 mmol/L (22-28) H 06/29/17 19:00 VBG O2 Sat (Calc) 42.5 % (40-65) 06/29/17 19:00 VBG Base Excess 4.9 mmol/L (0.0-2.0) H 06/29/17 19:00 VBG Potassium 4.3 mmol/L (3.6-5.2) 06/29/17 19:00 Sodium 132.0 mmol/L (132-148) 06/29/17 19:00 Chloride 97.0 mmol/L (98-107) L 06/29/17 19:00 Glucose 286 mg/dL (75-110) H 06/29/17 19:00 Lactate 1.7 mmol/L (0.7-2.1) 06/29/17 19:00 FiO2 21.0 % 06/29/17 19:00 Sodium 139 mmol/l (132-148) 07/02/17 06:14 Potassium 4.5 MMOL/L (3.6-5.0) 07/02/17 06:14 Chloride 102 mmol/L (98-107) 07/02/17 06:14 Carbon Dioxide 29 mmol/L (22-30) 07/02/17 06:14 Anion Gap 13 (10-20) 07/02/17 06:14 BUN 16 mg/dl (9-20) 07/02/17 06:14 Creatinine 1.1 mg/dl (0.8-1.5) 07/02/17 06:14 Est GFR ( Amer) > 60 07/02/17 06:14 Est GFR (Non-Af Amer) > 60 07/02/17 06:14 POC Glucose (mg/dL) 280 mg/dL (65-110) H 07/03/17 05:34 Random Glucose 329 mg/dL (75-110) H 07/02/17 06:14 Calcium 8.1 mg/dL (8.4-10.2) L 07/02/17 06:14 Phosphorus 2.8 mg/dl (2.5-4.5) 06/29/17 18:46 Magnesium 1.6 MG/DL (1.6-2.3) 06/29/17 18:46 Total Bilirubin 0.4 mg/dl (0.2-1.3) 06/29/17 18:46 AST 20 U/L (17-59) 06/29/17 18:46 ALT 36 U/L (21-72) 06/29/17 18:46 Alkaline Phosphatase 77 U/L (38-126) 06/29/17 18:46 Total Protein 7.5 G/DL (6.3-8.2) 06/29/17 18:46 Albumin 3.9 g/dL (3.5-5.0) 06/29/17 18:46 Globulin 3.6 gm/dL (2.2-3.9) 06/29/17 18:46 Albumin/Globulin Ratio 1.1 (1.0-2.1) 06/29/17 18:46 Lipase 51 U/L (23-300) 06/29/17 18:46 Venous Blood Potassium 4.3 mmol/L (3.6-5.2) 06/29/17 19:00 Urine Color Yellow (YELLOW) 06/29/17 23: Urine Clarity Slighty-cloudy (Clear) 06/29/17 23: Urine pH 5.0 (5.0-8.0) 06/29/17 23:01 Ur Specific [place] 1.036 (1.003-1.030) H 06/29/17 23:01 Urine Protein >=500 mg/dL (NEGATIVE) 06/29/17 23:01 Urine Glucose (UA) >=500 mg/dL (Normal) 06/29/17 23:01 Urine Ketones Negative mg/dL (NEGATIVE) 06/29/17 23:01 Urine Blood Large (NEGATIVE) 06/29/17 23:01 Urine Nitrate Negative (NEGATIVE) 06/29/17 23:01 Urine Bilirubin Negative (NEGATIVE) 06/29/17 23:01 Urine Urobilinogen 0.2-1.0 mg/dL (0.2-1.0) 06/29/17 23:01 Ur Leukocyte Esterase Neg [place]/uL (Negative) 06/29/17 23:01 Urine RBC (Auto) 31 /hpf (0-3) H 06/29/17 23:01 Urine Microscopic WBC 4 /hpf (0-5) 06/29/17 23:01 Ur Squamous Epith Cells < 1 /hpf (0-5) 06/29/17 23:01 Urine Bacteria Rare (<OCC) 06/29/17 23:01 Influenza Typ A,B (EIA) Pos for influenza a (NEGATIVE) H 06/29/17 18:46 - Hospital Course Hospital Course: FEELS BETTER NAUSEA/VOMITING AND COUGH RESOLVED NO FEVER NO HEADACHES/BODY ACHES NO DIARRHEA Discharge Exam - Head Exam Head Exam: NORMOCEPHALIC - Eye Exam Eye Exam: EOMI, Normal appearance, PERRL Pupil Exam: NORMAL ACCOMODATION, PERRL - GI/Abdominal Exam GI & Abdominal Exam: Normal Bowel Sounds - Rectal Exam Rectal Exam: NORMAL INSPECTION - Neurological Exam Neurological exam: Alert, CN II-XII Intact, Normal Gait, Oriented x3, Reflexes Normal - Psychiatric Exam Psychiatric exam: Normal Affect, Normal Mood - Skin Skin Exam: Dry, Intact, Normal Color, Warm Discharge Plan - Follow Up Plan Condition: FAIR Disposition: HOME/ ROUTINE Patient education suggested?: Yes Additional Instructions: DISCHARGE TODAY FOLLOWUP WITH PRIMARY CARE PHYSICIAN
[2017-07-03] MEDS: levoFLOXacin 500 mg in D5W 500 MG/100 ML BAG IVPB SCH (09:04)
[2017-07-03 12:04] VITALS: BP 120/73; PULSE 80; TEMP 97.9
== END 2017-07-03 14:20 | disposition home or self-care (01) | DRG 872 ==
LOC: H.ER 18:13 → H.ERHOLD 06-30 → H.TEL 06-30 02:13 → OBSVTOIN 06-30 12:48
PROVIDERS: ADMIT Internal Medicine Pulmonary Disease; ATTEND Internal Medicine Pulmonary Disease
DX: A41.89 Other specified sepsis (principal); K50.90 Crohn's disease, unspecified, without complications; E11.9 Type 2 diabetes mellitus without complications; I10 Essential (primary) hypertension; J10.2 Influenza due to other identified influenza virus with gastrointestinal manifestations; F17.200 Nicotine dependence, unspecified, uncomplicated

== ENCOUNTER 2017-08-07 17:22 | Inpatient (IN) | payer BC ==
[2017-08-07] MEDS ORDERED: Sodium Chloride 0.9% 1,000 ML IV STA ×2 (18:14→21:31)
--- NOTE | 2017-08-07 18:18 | ED PDOC ---
HPI: Abdomen Time Seen by Provider: 08/07/17 18:07 Chief Complaint (Nursing): Abdominal Pain History Per: Patient Onset/Duration Of Symptoms: Days (1) Current Symptoms Are (Timing): Still Present Severity: Moderate Pain Scale Rating Of: 5 Location Of Pain/Discomfort: Epigastric, Periumbilical Quality Of Discomfort: Sharp Associated Symptoms: denies: Nausea, Vomiting, Diarrhea, Urinary Symptoms Exacerbating Factors: None Alleviating Factors: None Additional Complaint(s): Sharp epigastric and periumbilical abd pain x 1 day. Denies NVD. No urinary sxs. No fever. No bloody stool.. H/o Ulcerative colitis Past Medical History Vital Signs: Last Vital Signs Temp 98.9 F 08/10/17 08:38 Pulse 59 L 08/10/17 08:38 Resp 20 08/10/17 08:38 BP 127/57 L 08/10/17 08:38 Pulse Ox 95 08/10/17 08:38 - Medical History PMH: Crohn's Disease, Diabetes, HIV - Family History Family History: States: Unknown Family Hx - Immunization History Hx Tetanus Toxoid Vaccination: No Hx Influenza Vaccination: No Hx Pneumococcal Vaccination: No - Home Medications Home Medications: Ambulatory Orders Medication Instructions Recorded Gabapentin [Neurontin] 300 mg PO TID 06/30/17 Insulin Lispro [humALOG] 10 units SC PRN PRN 06/30/17 Mesalamine [Asacol HD 800mg] 800 mg PO TID 06/30/17 Valsartan [Valsartan] 320 mg PO DAILY 08/08/17 - Allergies Allergies/Adverse Reactions: Allergies Allergy/AdvReac Type Severity Reaction Status Date / Time clarithromycin [From Biaxin] Allergy RASH Verified 06/29/17 18:23 Review of Systems ROS Statement: Except As Marked, All Systems Reviewed And Found Negative Constitutional: Negative for: Fever Gastrointestinal: Positive for: Abdominal Pain. Negative for: Vomiting, Diarrhea Genitourinary Male: Negative for: Dysuria, Frequency Physical Exam - Reviewed Nursing Documentation Reviewed: Yes Vital Signs Reviewed: Yes - Physical Exam Appears: Positive for: Non-toxic, Uncomfortable Head Exam: Positive for: ATRAUMATIC, NORMAL INSPECTION, NORMOCEPHALIC Skin: Positive for: Normal Color, Warm, DRY Eye Exam: Positive for: EOMI, Normal appearance, PERRL ENT: Positive for: Other (mucous membranes dry) Neck: Positive for: Normal, Painless ROM Cardiovascular/Chest: Positive for: Regular Rate, Rhythm Respiratory: Positive for: CNT, Normal Breath Sounds Gastrointestinal/Abdominal: Positive for: Bowel Sounds, Soft, Tenderness ( epigastric) Back: Positive for: Normal Inspection Extremity: Positive for: Normal ROM Neurologic/Psych: Positive for: Alert, Oriented - Laboratory Results Result Diagrams: 08/10/17 09:36 08/10/17 09:36 - ECG O2 Sat by Pulse Oximetry: 99 Disposition - Clinical Impression Clinical Impression: Ulcerative colitis, Leukocytosis, Dehydration - Patient ED Disposition Is Patient to be Admitted: Transfer of Care - Disposition Disposition: Transfer of Care Disposition Time: 19:00 Condition: GUARDED Patient Signed Over To: James Cortez
[2017-08-07] MEDS ORDERED: Dextrose 50% SYRINGE Inj (50 ml) IV PRN (18:29)
[2017-08-07] MEDS ORDERED: Glucagon Recombinant 1 mg Inj IM PRN (18:29)
[2017-08-07] MEDS ORDERED: Insulin Regular 100 units/ml IV STA (18:30)
[2017-08-07] MEDS ORDERED: Insulin Regular 100 units/ml ONE ×2 (18:51→23:35)
[2017-08-07 19:07] LABS: BASO # 0.1 K/uL (0.0-0.2); BASO % 0.7 % (0.0-2.0); EOS # 0.3 K/uL (0.0-0.7); HEMOGLOBIN 13.9 g/dL (12.0-18.0); LYMPH # 2.7 K/uL (1.0-4.3); LYMPH % 16.1 % (20.0-40.0); MEAN CORPUSCULAR HEMOGLOBIN 28.5 pg (27.0-31.0); MEAN CORPUSCULAR HGB CONC 33.5 g/dL (33.0-37.0); MEAN PLATELET VOLUME 7.7 fl (7.2-11.7); MONO # 1.5 K/uL (0.0-0.8); MONO % 8.7 % (0.0-10.0); NEUT # 12.2 K/uL (1.8-7.0); NEUT % 72.5 % (50.0-75.0); RBC 4.87 Mil/uL (4.40-5.90); RED CELL DISTRIBUTION WIDTH 13.4 % (11.5-14.5); WHITE BLOOD COUNT 16.8 K/uL (4.8-10.8)
[2017-08-07 19:21] LABS: ALBUMIN 3.6 g/dL (3.5-5.0); ALT/SGPT 28 U/L (21-72); AST/SGOT 23 U/L (17-59); BLOOD UREA NITROGEN 21 mg/dl (9-20); GFR AFRICAN-AMERICAN > 60; GFR NON-AFRICAN AMERICAN > 60; LIPASE 60 U/L (23-300)
[2017-08-07] MEDS ORDERED: Morphine 4 MG/ML VIAL ONE ×2 (19:38→21:23)
[2017-08-07 20:07] LABS: VENOUS BLOOD GAS BASE EXCESS -0.7 mmol/L (0.0-2.0); VENOUS BLOOD GAS PCO2 54 mmHg (40-60); VENOUS BLOOD GAS PO2 23 mm/Hg (30-55)
--- NOTE | 2017-08-07 20:55 | CT ---
EXAM: CT Abdomen and Pelvis Without Intravenous Contrast EXAM DATE/TIME: 08/07/2017 7:06 PM CLINICAL HISTORY: 37 years old, male; Pain; Abdominal pain; Other: Abd. And back pain; Patient HX: Crohn's disease; Additional info: Abd pain. Sent phy. Doc. TECHNIQUE: Axial computed tomography images of the abdomen and pelvis without intravenous contrast. All CT scans at this facility use one or more dose reduction techniques, viz.: automated exposure control; ma/kV adjustment per patient size (including targeted exams where dose is matched to indication; i.e. head); or iterative reconstruction technique. Coronal and sagittal reformatted images were created and reviewed. COMPARISON: CT - ABD PELVIS PO IV CONTRAST 2017-06-29 22:02 FINDINGS: Lower thorax: Heart size is normal. There is minimal scarring at the lung bases. ABDOMEN: Liver: unremarkable Gallbladder and bile ducts: unremarkable Pancreas: Pancreas is mildly atrophic. Spleen: Spleen is unremarkable. There is an accessory spleen in the left upper quadrant. Adrenals: unremarkable Kidneys and ureters: unremarkable Stomach and bowel: There is mild distal esophageal wall thickening. Stomach there is partially distended. Rotation is normal. There is no small bowel obstruction. Appendix is unremarkable. There is mild prominence of the terminal ileum. There is moderate stool in the cecum and ascending colon. There is focal wall thickening at the hepatic flexure. There is proximal transverse colon wall thickening. There is mild luminal narrowing. There is no obstruction. There is moderate stool and air in the distal transverse and left colon.. There is minimal infiltrative change in the adjacent mesenteric fat. There are multiple small mildly enlarged mesenteric nodes adjacent to the hepatic flexure. Appendix: See stomach and bowel PELVIS: Bladder: unremarkable Reproductive: Seminal vesicles and prostate are unremarkable. ABDOMEN and PELVIS: Intraperitoneal space: There is no free air or free fluid. Bones/joints: There are degenerative changes in the osseus structures. Soft tissues: There is a fat containing left inguinal hernia Vasculature: There are vascular calcifications. Lymph nodes: There are no pathologically enlarged para-aortic nodes. There are multiple small mildly enlarged mesenteric nodes in the right upper quadrant. IMPRESSION: Interval increase in inflammatory change at the hepatic flexure with inflammation in adjacent pericolonic fat and shotty adenopathy, findings are consistent with Crohn's disease; distal esophageal wall thickening, underdistention versus inflammation; mild prominence of terminal ileum; no acute solid visceral abnormality Additional nonemergent findings as described above.
[2017-08-07] MEDS ORDERED: Cefepime 2 GM in Sodium Chloride 0.9% 100 ML IVPB STA (21:43)
--- NOTE | 2017-08-07 21:54 | ED PDOC ---
"- Laboratory Results Result Diagrams: 08/07/17 18:43 08/07/17 18:43 - ECG O2 Sat by Pulse Oximetry: 100 Pulse Ox Interpretation: Normal Medical Decision Making Medical Decision MakinPM Pt. signed out to me by Dr. Chang pending CT results and re-eval. EXAM DATE/TIME: 08/07/2017 7:06 PM CLINICAL HISTORY: 37 years old, male; Pain; Abdominal pain; Other: Abd. And back pain; Patient HX : Crohn's disease; Additional info: Abd pain. Sent phy. Doc. TECHNIQUE: Axial computed tomography images of the abdomen and pelvis without intravenous contrast. All CT scans at this facility use one or more dose reduction techniques, viz.: automated exposure control; ma/kV adjustment per patient size (including targeted exams where dose is matched to indication; i.e. head); or iterative reconstruction technique. Coronal and sagittal reformatted images were created and reviewed. COMPARISON: CT - ABD PELVIS PO IV CONTRAST 2017-06-29 22:02 FINDINGS: Lower thorax: Heart size is normal. There is minimal scarring at the lung bases. ABDOMEN: Liver: unremarkable Gallbladder and bile ducts: unremarkable Pancreas: Pancreas is mildly atrophic. Spleen: Spleen is unremarkable. There is an accessory spleen in the left upper quadrant. Adrenals: unremarkable Kidneys and ureters: unremarkable Stomach and bowel: There is mild distal esophageal wall thickening. Stomach there is partially distended. Rotation is normal. There is no small bowel obstruction. Appendix is unremarkable. There is mild prominence of the terminal ileum. There is moderate stool in the cecum and ascending colon. There is focal wall thickening at the hepatic flexure. There is proximal transverse colon wall thickening. There is mild luminal narrowing. There is no obstruction. There is moderate stool and air in the distal transverse and left colon.. There is minimal infiltrative change in the adjacent mesenteric fat. There are multiple small mildly enlarged mesenteric nodes adjacent to the hepatic flexure. Appendix: See stomach and bowel WALDO STONER | Final Radiology Report CONFIDENTIALITY STATEMENT This report is intended only for use by the referring physician, and only in accordance with law. If you received this in error, call [phone]. Page 2 of 2 PELVIS: Bladder: unremarkable Reproductive: Seminal vesicles and prostate are unremarkable. ABDOMEN and PELVIS: Intraperitoneal space: There is no free air or free fluid. Bones/joints: There are degenerative changes in the osseus structures. Soft tissues: There is a fat containing left inguinal hernia Vasculature: There are vascular calcifications. Lymph nodes: There are no pathologically enlarged para-aortic nodes. There are multiple small mildly enlarged mesenteric nodes in the right upper quadrant. IMPRESSION: Interval increase in inflammatory change at the hepatic flexure with inflammation in adjacent pericolonic fat and shotty adenopathy, findings are consistent with Crohn's disease; distal esophageal wall thickening, underdistention versus inflammation; mild prominence of terminal ileum; no acute solid visceral abnormality Additional nonemergent findings as described above 9PM Pt. states he's still having pain. Has lactic acidosis and leukocytosis, although most likely not DKA because no GAP, normal CO2, lactic acidosis is likely 2/2 to profound dehydration. Spoke with Dr. Chu who will see patient tomorrow, recommends broad spec ABx for now, does not need steroids at this time. Will admit to Dr. Huertas's service. Disposition - Clinical Impression Clinical Impression: Ulcerative colitis, Leukocytosis, Dehydration - POA Present On Arrival: None - Disposition Disposition: Admitted as In-Patient Disposition Time: 21:30 Condition: GUARDED"
[2017-08-07] MEDS ORDERED: Insulin Detemir 100 Units/ml Inj SC STA (22:18)
[2017-08-07 22:44] LABS: SQUAMOUS EPITHIAL 3 /hpf (0-5); URINE BILIRUBIN NEGATIVE (NEGATIVE); URINE BLOOD MODERATE (NEGATIVE); URINE CLARITY CLEAR (Clear); URINE COLOR YELLOW (YELLOW); URINE GLUCOSE (UA) >=500 mg/dL (Normal); URINE LEUKOCYTE ESTERASE NEG Leu/uL (Negative); URINE NITRATE NEGATIVE (NEGATIVE); URINE PROTEIN 100 mg/dL (NEGATIVE); URINE UROBILINOGEN 0.2-1.0 mg/dL (0.2-1.0)
[2017-08-07] MEDS ORDERED: Insulin Regular 100 units/ml SC STA (23:05)
[2017-08-08] MEDS ORDERED: Morphine 4 MG/ML VIAL ONE (03:50)
[2017-08-08 07:18] LABS: LDL CHOLESTEROL 110 mg/dL (0-129)
[2017-08-08 07:23] LABS: ALBUMIN 3.7 g/dL (3.5-5.0); ALT/SGPT 26 U/L (21-72); AST/SGOT 33 U/L (17-59); BLOOD UREA NITROGEN 20 mg/dl (9-20); CALCIUM 9.1 mg/dL (8.4-10.2); GFR AFRICAN-AMERICAN > 60; GFR NON-AFRICAN AMERICAN > 60; HDL CHOLESTEROL 27 MG/DL (30-70)
[2017-08-08 07:25] LABS: T4 9.03 ug/dl (5.5-11.0)
[2017-08-08 07:38] LABS: T3 1.25 nmol/L (1.49-2.60)
[2017-08-08 08:31] LABS: HEMOGLOBIN 12.8 g/dL (12.0-18.0); MEAN CELL VOLUME 84.1 fl (80.0-94.0); MEAN CORPUSCULAR HEMOGLOBIN 29.2 pg (27.0-31.0); MEAN CORPUSCULAR HGB CONC 34.7 g/dL (33.0-37.0); RBC 4.37 Mil/uL (4.40-5.90); RED CELL DISTRIBUTION WIDTH 13.4 % (11.5-14.5); WHITE BLOOD COUNT 13.5 K/uL (4.8-10.8)
--- NOTE | 2017-08-08 08:55 | CP.PCM.CON ---
History of Present Illness - History of Present Illness History of Present Illness: 37 yo male admitted with severe abdominal pain and hyperglycemia. Patient states pain is in midabdomen as well as in legs. He has h/o ulcerative colitis and gets seasonal flares manifested by diarrhea and bleeding . When he has a flare he takes Asacol. Current episode present about 4-5 days. On insulin for diabetes and admits to being noncompliant lately with diet. Review of Systems - Constitutional Constitutional: absent: Chills - EENT Eyes: absent: Blurred Vision Ears: absent: Decreased Hearing Nose/Mouth/Throat: absent: Epistaxis - Cardiovascular Cardiovascular: absent: Chest Pain - Respiratory Respiratory: absent: Dyspnea - Gastrointestinal Gastrointestinal: As Per HPI - Genitourinary Genitourinary: Change in Urinary Stream Past Patient History - Past Medical History & Family History Past Medical History?: Yes - Past Social History Smoking Status: Former Smoker - CARDIAC Hx Cardiac Disorders: Yes Hx Hypertension: Yes - PULMONARY Hx Respiratory Disorders: Yes Hx Asthma: Yes - NEUROLOGICAL Hx Neurological Disorder: No - HEENT Hx HEENT Problems: No - RENAL Hx Chronic Kidney Disease: No - ENDOCRINE/METABOLIC Hx Endocrine Disorders: Yes Hx Diabetes Mellitus Type 2: Yes Other/Comment: diabetic neuropathy - HEMATOLOGICAL/ONCOLOGICAL Hx Blood Disorders: Yes Hx Human Immunodeficiency Virus (HIV): Yes (Pt denies.) - INTEGUMENTARY Hx Dermatological Problems: No - MUSCULOSKELETAL/RHEUMATOLOGICAL Hx Musculoskeletal Disorders: Yes Hx Falls: Yes - GASTROINTESTINAL Hx Gastrointestinal Disorders: Yes Hx Colitis: Yes Hx Crohn's Disease: Yes Other/Comment: Ulcerative colitis. - GENITOURINARY/GYNECOLOGICAL Hx Genitourinary Disorders: No - PSYCHIATRIC Hx Psychophysiologic Disorder: Yes Hx Substance Use: Yes (in an [facility] program) Other/Comment: in a [facility] program - SURGICAL HISTORY Hx Surgeries: Yes Other/Comment: coloscopy - ANESTHESIA Hx Anesthesia: Yes Hx Anesthesia Reactions: No Hx Malignant Hyperthermia: No Meds Allergies/Adverse Reactions: Allergies Allergy/AdvReac Type Severity Reaction Status Date / Time clarithromycin [From Biaxin] Allergy RASH Verified 06/29/17 18:23 - Medications Medications: Current Medications Gabapentin (Neurontin) 300 mg PO TID [facility] Home Med (Mesalamine [Asacol Hd 800mg]) 800 mg PO TID [facility] Sodium Chloride (Sodium Chloride 0.9%) 1,000 mls @ 250 mls/hr IV .[facility] Stop: 08/09/17 06:11 Insulin Detemir (Levemir) 20 units SC HS [facility] Insulin Human Regular (Humulin R) 0 units SC ACHS [facility] PRN Reason: Protocol Morphine Sulfate (Morphine) 2 mg IVP Q6 PRN PRN Reason: Pain, severe (8-10) Valsartan (Diovan) 320 mg PO DAILY [facility] Physical Exam - Constitutional Appears: Other Additional comments: appears in pain - Head Exam Head Exam: NORMAL INSPECTION - Eye Exam Eye Exam: Normal appearance - ENT Exam ENT Exam: Mucous Membranes Moist - Neck Exam Neck exam: Positive for: Normal Inspection - Respiratory Exam Respiratory Exam: Clear to Auscultation Bilateral - Cardiovascular Exam Cardiovascular Exam: REGULAR RHYTHM, +S1, +S2 - GI/Abdominal Exam GI & Abdominal Exam: Normal Bowel Sounds, Soft, Tenderness Additional comments: tender in epigastrum and RLQ, no guarding Results - Vital Signs Recent Vital Signs: Last Vital Signs Temp 97.2 F L 08/08/17 08:45 Pulse 84 08/08/17 08:45 Resp 20 08/08/17 08:45 BP 145/94 H 08/08/17 08:45 Pulse Ox 98 08/08/17 08:45 - Labs Result Diagrams: 08/08/17 08:11 08/08/17 06:55 Labs: Laboratory Results - last 24 hr 08/07/17 08/07/17 08/07/17 18:28 18:43 18:43 WBC 16.8 H D RBC 4.87 Hgb 13.9 Hct 41.4 MCV 85.0 MCH 28.5 MCHC 33.5 RDW 13.4 Plt Count 463 H D MPV 7.7 Neut % (Auto) 72.5 Lymph % (Auto) 16.1 L [place] % (Auto) 8.7 Eos % (Auto) 2.0 Baso % (Auto) 0.7 Neut # (Auto) 12.2 H Lymph # (Auto) 2.7 [place] # (Auto) 1.5 H Eos # (Auto) 0.3 Baso # (Auto) 0.1 pO2 VBG pH VBG pCO2 VBG HCO3 VBG Total CO2 VBG O2 Sat (Calc) VBG Base Excess VBG Potassium Glucose Lactate FiO2 Sodium 137 Potassium 4.4 Chloride 97 L Carbon Dioxide 26 Anion Gap 18 BUN 21 H Creatinine 1.1 Est GFR ( Amer) > 60 Est GFR (Non-Af Amer) > 60 POC Glucose (mg/dL) > 500 H* Random Glucose 547 H* D Calcium 9.0 Total Bilirubin 0.4 AST 23 ALT 28 Alkaline Phosphatase 75 CK-MB (Mass) Total Protein 7.2 Albumin 3.6 Globulin 3.6 Albumin/Globulin Ratio 1.0 Triglycerides Cholesterol LDL Cholesterol Direct HDL Cholesterol Lipase 60 Vitamin B12 Thyroxine (T4) Total T3 TSH 3rd Generation Venous Blood Potassium Urine Color Urine Clarity Urine pH Ur Specific [place] Urine Protein Urine Glucose (UA) Urine Ketones Urine Blood Urine Nitrate Urine Bilirubin Urine Urobilinogen Ur Leukocyte Esterase Urine RBC (Auto) Urine Microscopic WBC Ur Squamous Epith Cells 08/07/17 08/07/17 08/07/17 19:28 20:04 21:41 WBC RBC Hgb Hct MCV MCH MCHC RDW Plt Count MPV Neut % (Auto) Lymph % (Auto) [place] % (Auto) Eos % (Auto) Baso % (Auto) Neut # (Auto) Lymph # (Auto) [place] # (Auto) Eos # (Auto) Baso # (Auto) pO2 23 L VBG pH 7.30 L VBG pCO2 54 VBG HCO3 22.6 VBG Total CO2 28.3 H VBG O2 Sat (Calc) 37.4 L VBG Base Excess -0.7 L VBG Potassium 4.5 Glucose 392 H Lactate 2.4 H FiO2 21.0 Sodium 136.0 Potassium Chloride 105.0 Carbon Dioxide Anion Gap BUN Creatinine Est GFR ( Amer) Est GFR (Non-Af Amer) POC Glucose (mg/dL) 402 H* 332 H Random Glucose Calcium Total Bilirubin AST ALT Alkaline Phosphatase CK-MB (Mass) Total Protein Albumin Globulin Albumin/Globulin Ratio Triglycerides Cholesterol LDL Cholesterol Direct HDL Cholesterol Lipase Vitamin B12 Thyroxine (T4) Total T3 TSH 3rd Generation Venous Blood Potassium 4.5 Urine Color Urine Clarity Urine pH Ur Specific [place] Urine Protein Urine Glucose (UA) Urine Ketones Urine Blood Urine Nitrate Urine Bilirubin Urine Urobilinogen Ur Leukocyte Esterase Urine RBC (Auto) Urine Microscopic WBC Ur Squamous Epith Cells 08/07/17 08/08/17 08/08/17 22:32 02:08 04:00 WBC RBC Hgb Hct MCV MCH MCHC RDW Plt Count MPV Neut % (Auto) Lymph % (Auto) [place] % (Auto) Eos % (Auto) Baso % (Auto) Neut # (Auto) Lymph # (Auto) [place] # (Auto) Eos # (Auto) Baso # (Auto) pO2 VBG pH VBG pCO2 VBG HCO3 VBG Total CO2 VBG O2 Sat (Calc) VBG Base Excess VBG Potassium Glucose Lactate FiO2 Sodium Potassium Chloride Carbon Dioxide Anion Gap BUN Creatinine Est GFR ( Amer) Est GFR (Non-Af Amer) POC Glucose (mg/dL) 292 H Random Glucose Calcium Total Bilirubin AST ALT Alkaline Phosphatase CK-MB (Mass) 1.26 Total Protein Albumin Globulin Albumin/Globulin Ratio Triglycerides Cholesterol LDL Cholesterol Direct HDL Cholesterol Lipase Vitamin B12 Thyroxine (T4) Total T3 TSH 3rd Generation Venous Blood Potassium Urine Color Yellow Urine Clarity Clear Urine pH 5.0 Ur Specific [place] 1.026 Urine Protein 100 Urine Glucose (UA) >=500 Urine Ketones Negative Urine Blood Moderate Urine Nitrate Negative Urine Bilirubin Negative Urine Urobilinogen 0.2-1.0 Ur Leukocyte Esterase Neg Urine RBC (Auto) 10 H Urine Microscopic WBC 1 Ur Squamous Epith Cells 3 08/08/17 08/08/17 06:55 08:11 WBC 13.5 H RBC 4.37 L Hgb 12.8 Hct 36.7 MCV 84.1 MCH 29.2 MCHC 34.7 RDW 13.4 Plt Count 448 H MPV Neut % (Auto) Lymph % (Auto) [place] % (Auto) Eos % (Auto) Baso % (Auto) Neut # (Auto) Lymph # (Auto) [place] # (Auto) Eos # (Auto) Baso # (Auto) pO2 VBG pH VBG pCO2 VBG HCO3 VBG Total CO2 VBG O2 Sat (Calc) VBG Base Excess VBG Potassium Glucose Lactate FiO2 Sodium 138 Potassium 4.6 Chloride 100 Carbon Dioxide 24 Anion Gap 19 BUN 20 Creatinine 1.1 Est GFR ( Amer) > 60 Est GFR (Non-Af Amer) > 60 POC Glucose (mg/dL) Random Glucose 543 H* Calcium 9.1 Total Bilirubin 0.5 AST 33 ALT 26 Alkaline Phosphatase 78 CK-MB (Mass) Total Protein 7.2 Albumin 3.7 Globulin 3.5 Albumin/Globulin Ratio 1.0 Triglycerides 194 H Cholesterol 148 LDL Cholesterol Direct 110 HDL Cholesterol 27 L Lipase Vitamin B12 412 Thyroxine (T4) 9.03 Total T3 1.25 L TSH 3rd Generation 1.36 Venous Blood Potassium Urine Color Urine Clarity Urine pH Ur Specific [place] Urine Protein Urine Glucose (UA) Urine Ketones Urine Blood Urine Nitrate Urine Bilirubin Urine Urobilinogen Ur Leukocyte Esterase Urine RBC (Auto) Urine Microscopic WBC Ur Squamous Epith Cells - Imaging and Cardiology CT scan - abdomen Status: Report reviewed by me Assessment & Plan (1) Abdominal pain Assessment and Plan: CT showingthickness in transverse colon and read as c/w Crohns. Patient however states he has had UC and this is not typical of UC flares because he has no diarrhea. In addition to abdominal pain c/o pain in his legs. Recommend broad spectrum antibiotics for now and control of blood sugar. If symptoms persist will do colonoscopy after blood sugar control. Status: Acute
--- NOTE | 2017-08-08 09:02 | CP.PCM.HP ---
History of Present Illness - History of Present Illness History of Present Illness: 37 y/o M with PMhx of IBD(as per patient UC), Uncontrolled DM and chronic pain presented to ED yesterday c/o severe abd pain, B/L leg pain and vomiting. Pain was periumbilical and radiating to back, vomiting NBNB. Denies diarrhea, fever, headaches, melena or hematochezia. Admits noncompliance with DM and IBD meds. Was not taking Mesalazine recently. Hanst follow up with GI in months. Admits taking Oxycodone at home for "chronic pain". Patient was admitted to [facility] last month for flu. PMD: Dr Pastor PMhx: IBD, DM Present on Admission - Present on Admission Any Indicators Present on Admission: Yes History of Uncontrolled Diabetes: Yes Review of Systems - Review of Systems All systems: reviewed and no additional remarkable complaints except - Gastrointestinal Gastrointestinal: Abdominal Pain - Musculoskeletal Musculoskeletal: Other (Leg pain B/L supperficial) Past Patient History - Past Medical History & Family History Past Medical History?: Yes - Past Social History Smoking Status: Former Smoker - CARDIAC Hx Cardiac Disorders: Yes Hx Hypertension: Yes - PULMONARY Hx Respiratory Disorders: Yes Hx Asthma: Yes - NEUROLOGICAL Hx Neurological Disorder: No - HEENT Hx HEENT Problems: No - RENAL Hx Chronic Kidney Disease: No - ENDOCRINE/METABOLIC Hx Endocrine Disorders: Yes Hx Diabetes Mellitus Type 2: Yes Other/Comment: diabetic neuropathy - HEMATOLOGICAL/ONCOLOGICAL Hx Blood Disorders: No Hx Human Immunodeficiency Virus (HIV): No - INTEGUMENTARY Hx Dermatological Problems: No - MUSCULOSKELETAL/RHEUMATOLOGICAL Hx Musculoskeletal Disorders: Yes Hx Falls: Yes - GASTROINTESTINAL Hx Gastrointestinal Disorders: Yes Hx Colitis: Yes Hx Crohn's Disease: No Other/Comment: Ulcerative colitis. - GENITOURINARY/GYNECOLOGICAL Hx Genitourinary Disorders: No - PSYCHIATRIC Hx Psychophysiologic Disorder: Yes Hx Substance Use: Yes (in an [facility] program) Other/Comment: in a [facility] program - SURGICAL HISTORY Hx Surgeries: Yes Other/Comment: colonoscopy - ANESTHESIA Hx Anesthesia: Yes Hx Anesthesia Reactions: No Hx Malignant Hyperthermia: No Meds Allergies/Adverse Reactions: Allergies Allergy/AdvReac Type Severity Reaction Status Date / Time clarithromycin [From Biaxin] Allergy RASH Verified 06/29/17 18:23 Physical Exam - Constitutional Appears: Non-toxic, In Acute Distress (Mild due to pain) - Head Exam Head Exam: ATRAUMATIC - Eye Exam Eye Exam: EOMI, PERRL - ENT Exam ENT Exam: Mucous Membranes Moist - Respiratory Exam Respiratory Exam: Clear to Auscultation Bilateral, NORMAL BREATHING PATTERN - Cardiovascular Exam Cardiovascular Exam: REGULAR RHYTHM, +S1, +S2. absent: Gallop - GI/Abdominal Exam GI & Abdominal Exam: Guarding (Mild), Normal Bowel Sounds, Soft, Tenderness ( Diffuse). absent: Rebound, Rigid - Extremities Exam Extremities exam: Positive for: normal capillary refill. Negative for: joint swelling, tenderness - Neurological Exam Neurological exam: Alert, Normal Gait, Oriented x3 - Psychiatric Exam Psychiatric exam: Normal Affect, Normal Mood - Skin Skin Exam: Normal Color, Warm Results - Vital Signs Recent Vital Signs: Last Vital Signs Temp 97.2 F L 08/08/17 08:45 Pulse 84 08/08/17 08:45 Resp 20 08/08/17 08:45 BP 145/94 H 08/08/17 08:45 Pulse Ox 98 08/08/17 08:45 - Labs Result Diagrams: 08/08/17 08:11 08/08/17 06:55 Labs: Laboratory Results - last 24 hr 08/07/17 08/07/17 08/07/17 18:28 18:43 18:43 WBC 16.8 H D RBC 4.87 Hgb 13.9 Hct 41.4 MCV 85.0 MCH 28.5 MCHC 33.5 RDW 13.4 Plt Count 463 H D MPV 7.7 Neut % (Auto) 72.5 Lymph % (Auto) 16.1 L [place] % (Auto) 8.7 Eos % (Auto) 2.0 Baso % (Auto) 0.7 Neut # (Auto) 12.2 H Lymph # (Auto) 2.7 [place] # (Auto) 1.5 H Eos # (Auto) 0.3 Baso # (Auto) 0.1 pO2 VBG pH VBG pCO2 VBG HCO3 VBG Total CO2 VBG O2 Sat (Calc) VBG Base Excess VBG Potassium Glucose Lactate FiO2 Sodium 137 Potassium 4.4 Chloride 97 L Carbon Dioxide 26 Anion Gap 18 BUN 21 H Creatinine 1.1 Est GFR ( Amer) > 60 Est GFR (Non-Af Amer) > 60 POC Glucose (mg/dL) > 500 H* Random Glucose 547 H* D Calcium 9.0 Total Bilirubin 0.4 AST 23 ALT 28 Alkaline Phosphatase 75 CK-MB (Mass) Total Protein 7.2 Albumin 3.6 Globulin 3.6 Albumin/Globulin Ratio 1.0 Triglycerides Cholesterol LDL Cholesterol Direct HDL Cholesterol Lipase 60 Vitamin B12 Thyroxine (T4) Total T3 TSH 3rd Generation Venous Blood Potassium Urine Color Urine Clarity Urine pH Ur Specific [place] Urine Protein Urine Glucose (UA) Urine Ketones Urine Blood Urine Nitrate Urine Bilirubin Urine Urobilinogen Ur Leukocyte Esterase Urine RBC (Auto) Urine Microscopic WBC Ur Squamous Epith Cells 08/07/17 08/07/17 08/07/17 19:28 20:04 21:41 WBC RBC Hgb Hct MCV MCH MCHC RDW Plt Count MPV Neut % (Auto) Lymph % (Auto) [place] % (Auto) Eos % (Auto) Baso % (Auto) Neut # (Auto) Lymph # (Auto) [place] # (Auto) Eos # (Auto) Baso # (Auto) pO2 23 L VBG pH 7.30 L VBG pCO2 54 VBG HCO3 22.6 VBG Total CO2 28.3 H VBG O2 Sat (Calc) 37.4 L VBG Base Excess -0.7 L VBG Potassium 4.5 Glucose 392 H Lactate 2.4 H FiO2 21.0 Sodium 136.0 Potassium Chloride 105.0 Carbon Dioxide Anion Gap BUN Creatinine Est GFR ( Amer) Est GFR (Non-Af Amer) POC Glucose (mg/dL) 402 H* 332 H Random Glucose Calcium Total Bilirubin AST ALT Alkaline Phosphatase CK-MB (Mass) Total Protein Albumin Globulin Albumin/Globulin Ratio Triglycerides Cholesterol LDL Cholesterol Direct HDL Cholesterol Lipase Vitamin B12 Thyroxine (T4) Total T3 TSH 3rd Generation Venous Blood Potassium 4.5 Urine Color Urine Clarity Urine pH Ur Specific [place] Urine Protein Urine Glucose (UA) Urine Ketones Urine Blood Urine Nitrate Urine Bilirubin Urine Urobilinogen Ur Leukocyte Esterase Urine RBC (Auto) Urine Microscopic WBC Ur Squamous Epith Cells 08/07/17 08/08/17 08/08/17 22:32 02:08 04:00 WBC RBC Hgb Hct MCV MCH MCHC RDW Plt Count MPV Neut % (Auto) Lymph % (Auto) [place] % (Auto) Eos % (Auto) Baso % (Auto) Neut # (Auto) Lymph # (Auto) [place] # (Auto) Eos # (Auto) Baso # (Auto) pO2 VBG pH VBG pCO2 VBG HCO3 VBG Total CO2 VBG O2 Sat (Calc) VBG Base Excess VBG Potassium Glucose Lactate FiO2 Sodium Potassium Chloride Carbon Dioxide Anion Gap BUN Creatinine Est GFR ( Amer) Est GFR (Non-Af Amer) POC Glucose (mg/dL) 292 H Random Glucose Calcium Total Bilirubin AST ALT Alkaline Phosphatase CK-MB (Mass) 1.26 Total Protein Albumin Globulin Albumin/Globulin Ratio Triglycerides Cholesterol LDL Cholesterol Direct HDL Cholesterol Lipase Vitamin B12 Thyroxine (T4) Total T3 TSH 3rd Generation Venous Blood Potassium Urine Color Yellow Urine Clarity Clear Urine pH 5.0 Ur Specific [place] 1.026 Urine Protein 100 Urine Glucose (UA) >=500 Urine Ketones Negative Urine Blood Moderate Urine Nitrate Negative Urine Bilirubin Negative Urine Urobilinogen 0.2-1.0 Ur Leukocyte Esterase Neg Urine RBC (Auto) 10 H Urine Microscopic WBC 1 Ur Squamous Epith Cells 3 08/08/17 08/08/17 06:55 08:11 WBC 13.5 H RBC 4.37 L Hgb 12.8 Hct 36.7 MCV 84.1 MCH 29.2 MCHC 34.7 RDW 13.4 Plt Count 448 H MPV Neut % (Auto) Lymph % (Auto) [place] % (Auto) Eos % (Auto) Baso % (Auto) Neut # (Auto) Lymph # (Auto) [place] # (Auto) Eos # (Auto) Baso # (Auto) pO2 VBG pH VBG pCO2 VBG HCO3 VBG Total CO2 VBG O2 Sat (Calc) VBG Base Excess VBG Potassium Glucose Lactate FiO2 Sodium 138 Potassium 4.6 Chloride 100 Carbon Dioxide 24 Anion Gap 19 BUN 20 Creatinine 1.1 Est GFR ( Amer) > 60 Est GFR (Non-Af Amer) > 60 POC Glucose (mg/dL) Random Glucose 543 H* Calcium 9.1 Total Bilirubin 0.5 AST 33 ALT 26 Alkaline Phosphatase 78 CK-MB (Mass) Total Protein 7.2 Albumin 3.7 Globulin 3.5 Albumin/Globulin Ratio 1.0 Triglycerides 194 H Cholesterol 148 LDL Cholesterol Direct 110 HDL Cholesterol 27 L Lipase Vitamin B12 412 Thyroxine (T4) 9.03 Total T3 1.25 L TSH 3rd Generation 1.36 Venous Blood Potassium Urine Color Urine Clarity Urine pH Ur Specific [place] Urine Protein Urine Glucose (UA) Urine Ketones Urine Blood Urine Nitrate Urine Bilirubin Urine Urobilinogen Ur Leukocyte Esterase Urine RBC (Auto) Urine Microscopic WBC Ur Squamous Epith Cells Assessment & Plan - Assessment and Plan (Free Text) Assessment: 37 y/o M admitted for IBD flare up and uncontrolled DM IBD exacerbation as per patient he has UC CT reports Crohn's disease Abd pain w/o diarrhea restart Mesalamine PO GI consult appreciated Start IV abx C/W pain control Uncontrolled DM with hyperglycemia Noncompliant with treatment and diet F/U A1c ISS ACHS Start Levemir 20 units SQ HS hypoglycemia protocol
--- NOTE | 2017-08-08 09:31 | RAD ---
PROCEDURE: CHEST RADIOGRAPH, 1 VIEW HISTORY: r/o PNA COMPARISON: Chest radiograph dated 06/29/2017. FINDINGS: LUNGS: Clear. PLEURA: No pneumothorax or pleural fluid seen. CARDIOVASCULAR: Normal. OSSEOUS STRUCTURES: No significant abnormalities. VISUALIZED UPPER ABDOMEN: Normal. OTHER FINDINGS: None. IMPRESSION: No active disease.
[2017-08-08] MEDS: Insulin Regular 100 units/ml SC SCH ×4 (09:33→22:41)
[2017-08-08] MEDS: Sodium Chloride 0.9% 1,000 ML IV SCH ×3 (10:00→22:05)
[2017-08-08] MEDS: metroNIDAZOLE 500mg/100ml NS 100 ML IVPB SCH ×2 (10:17→16:59)
[2017-08-08] MEDS: Ciprofloxacin 400mg/200ml D5W 400 MG/200 ML BAG IVPB SCH ×2 (10:18→20:25)
[2017-08-08] MEDS ORDERED: Glucagon Recombinant 1 mg Inj IM PRN (10:55)
[2017-08-08] MEDS ORDERED: Dextrose 50% SYRINGE Inj (50 ml) IVP PRN (10:55)
[2017-08-08 13:04] LABS: FOLATE 15.7 ng/mL
[2017-08-08] MEDS: Morphine 4 MG/ML VIAL IVP PRN (20:20)
[2017-08-08] MEDS ORDERED: Insulin Detemir 100 Units/ml Inj SC SCH (22:00)
[2017-08-08] MEDS ORDERED: Morphine 4 MG/ML VIAL IVP ONE (23:30)
[2017-08-09] MEDS: metroNIDAZOLE 500mg/100ml NS 100 ML IVPB SCH ×3 (01:48→18:10)
[2017-08-09] MEDS: Sodium Chloride 0.9% 1,000 ML IV SCH ×2 (02:34→08:56)
--- NOTE | 2017-08-09 03:02 | CARD ---
APPROVED REPORT EKG Measurement Heart [id number] <Conclusion> Normal sinus rhythm Possible Left atrial enlargement Borderline ECG
[2017-08-09] MEDS: Morphine 4 MG/ML VIAL IVP PRN (05:39)
[2017-08-09] MEDS: Ciprofloxacin 400mg/200ml D5W 400 MG/200 ML BAG IVPB SCH ×2 (08:41→21:36)
[2017-08-09] MEDS: Insulin Regular 100 units/ml SC SCH ×2 (08:49→13:37)
[2017-08-09] MEDS ORDERED: methylPREDNISolone 20 MG in Sodium Chloride 0.9% 50 ML IVPB SCH (09:45)
[2017-08-09 09:55] LABS: BASO # 0.1 K/uL (0.0-0.2); BASO % 0.9 % (0.0-2.0); EOS # 0.4 K/uL (0.0-0.7); EOS % 3.5 % (0.0-4.0); LYMPH # 3.1 K/uL (1.0-4.3); LYMPH % 26.9 % (20.0-40.0); MEAN CELL VOLUME 84.1 fl (80.0-94.0); MEAN CORPUSCULAR HGB CONC 34.5 g/dL (33.0-37.0); MEAN PLATELET VOLUME 7.5 fl (7.2-11.7); MONO # 1.2 K/uL (0.0-0.8); MONO % 10.6 % (0.0-10.0); NEUT # 6.6 K/uL (1.8-7.0); NEUT % 58.1 % (50.0-75.0); NRBC % 0.1 % (0.0-0.0); RBC 4.13 Mil/uL (4.40-5.90); RED CELL DISTRIBUTION WIDTH 13.6 % (11.5-14.5); WHITE BLOOD COUNT 11.5 K/uL (4.8-10.8)
[2017-08-09 10:13] LABS: ALB/GLOB RATIO 0.9 (1.0-2.1); ALT/SGPT 25 U/L (21-72); AST/SGOT 17 U/L (17-59); BLOOD UREA NITROGEN 11 mg/dl (9-20); GFR AFRICAN-AMERICAN > 60; GFR NON-AFRICAN AMERICAN > 60; LIPASE 30 U/L (23-300)
--- NOTE | 2017-08-09 11:05 | CP.PCM.CON ---
History of Present Illness - History of Present Illness History of Present Illness: Patient is referred for pain management by PMD. He has history of UC and peripheral neuropathy. He is on chronic pain medications of Percocets and Neurontin at home. He's been worked up for the current abdominal pain, which is different than his usual pain before. Dr. Chu is on consult. Since admission, he's been given Morphine 2mg, which isn't sufficient. Neurontin has been continued at the same dosage. Past Patient History - Past Medical History & Family History Past Medical History?: Yes - Past Social History Smoking Status: Former Smoker - CARDIAC Hx Cardiac Disorders: Yes Hx Hypertension: Yes - PULMONARY Hx Respiratory Disorders: Yes Hx Asthma: Yes - NEUROLOGICAL Hx Neurological Disorder: No - HEENT Hx HEENT Problems: No - RENAL Hx Chronic Kidney Disease: No - ENDOCRINE/METABOLIC Hx Endocrine Disorders: Yes Hx Diabetes Mellitus Type 2: Yes Other/Comment: diabetic neuropathy - HEMATOLOGICAL/ONCOLOGICAL Hx Blood Disorders: No Hx Human Immunodeficiency Virus (HIV): No - INTEGUMENTARY Hx Dermatological Problems: No - MUSCULOSKELETAL/RHEUMATOLOGICAL Hx Musculoskeletal Disorders: Yes Hx Falls: Yes - GASTROINTESTINAL Hx Gastrointestinal Disorders: Yes Hx Colitis: Yes Hx Crohn's Disease: No Other/Comment: Ulcerative colitis. - GENITOURINARY/GYNECOLOGICAL Hx Genitourinary Disorders: No - PSYCHIATRIC Hx Psychophysiologic Disorder: Yes Hx Substance Use: Yes (in an [facility] program) Other/Comment: in a [facility] program - SURGICAL HISTORY Hx Surgeries: Yes Other/Comment: colonoscopy - ANESTHESIA Hx Anesthesia: Yes Hx Anesthesia Reactions: No Hx Malignant Hyperthermia: No Meds Allergies/Adverse Reactions: Allergies Allergy/AdvReac Type Severity Reaction Status Date / Time clarithromycin [From Biaxin] Allergy RASH Verified 06/29/17 18:23 - Medications Medications: Current Medications Dextrose (Dextrose 50% Inj) 0 ml IVP STAT PRN; Protocol PRN Reason: Hypoglycemia Protocol Gabapentin (Neurontin) 600 mg PO TID [facility]A Glucagon (Glucagen Diagnostic Kit) 0 mg IM STAT PRN; Protocol PRN Reason: Hypoglycemia Protocol Home Med (Mesalamine [Asacol Hd 800mg]) 800 mg PO TID [facility]ZBIETA Hydromorphone HCl (Dilaudid) 1 mg IVP Q4 PRN PRN Reason: Pain, severe (8-10) Ciprofloxacin (Cipro 400mg/200ml Dsw) 400 mg in 200 mls @ 200 mls/hr IVPB Q12 [facility] PRN Reason: Protocol Last Admin: 08/09/17 08:41 Dose: 200 mls/hr Metronidazole (Flagyl 500mg/100ml Ns) 100 mls @ 100 mls/hr IVPB Q8 [facility] PRN Reason: Protocol Last Admin: 08/09/17 08:43 Dose: 100 mls/hr Insulin Detemir (Levemir) 20 units SC HS [facility] Last Admin: 08/08/17 22:50 Dose: 20 units Insulin Human Regular (Humulin R) 0 units SC ACHS [facility] PRN Reason: Protocol Last Admin: 08/09/17 08:49 Dose: 4 units Methylprednisolone (Solu-Medrol) 20 mg IVP Q8 [facility] Pantoprazole Sodium (Protonix Inj) 40 mg IVP DAILY [facility] Last Admin: 08/09/17 08:48 Dose: 40 mg Valsartan (Diovan) 320 mg PO DAILY [facility] Last Admin: 08/09/17 08:42 Dose: 320 mg Physical Exam - GI/Abdominal Exam GI & Abdominal Exam: Soft, Tenderness Results - Vital Signs Recent Vital Signs: Last Vital Signs Temp 97.8 F 08/09/17 07:56 Pulse 85 08/09/17 07:56 Resp 20 08/09/17 07:56 BP 154/77 H 08/09/17 07:56 Pulse Ox 99 08/09/17 07:56 - Labs Result Diagrams: 08/09/17 09:49 08/09/17 09:49 Labs: Laboratory Results - last 24 hr 08/08/17 08/08/17 08/08/17 06:55 09:20 10:59 WBC RBC Hgb Hct MCV MCH MCHC RDW Plt Count MPV Neut % (Auto) Lymph % (Auto) [place] % (Auto) Eos % (Auto) Baso % (Auto) Neut # (Auto) Lymph # (Auto) [place] # (Auto) Eos # (Auto) Baso # (Auto) Sodium Potassium Chloride Carbon Dioxide Anion Gap BUN Creatinine Est GFR ( Amer) Est GFR (Non-Af Amer) POC Glucose (mg/dL) 283 H Random Glucose Hemoglobin A1c 12.3 H Calcium Total Bilirubin AST ALT Alkaline Phosphatase Total Protein Albumin Globulin Albumin/Globulin Ratio Lipase Folate 15.7 08/08/17 08/08/17 08/09/17 15:54 21:34 05:40 WBC RBC Hgb Hct MCV MCH MCHC RDW Plt Count MPV Neut % (Auto) Lymph % (Auto) [place] % (Auto) Eos % (Auto) Baso % (Auto) Neut # (Auto) Lymph # (Auto) [place] # (Auto) Eos # (Auto) Baso # (Auto) Sodium Potassium Chloride Carbon Dioxide Anion Gap BUN Creatinine Est GFR ( Amer) Est GFR (Non-Af Amer) POC Glucose (mg/dL) 237 H 246 H 340 H Random Glucose Hemoglobin A1c Calcium Total Bilirubin AST ALT Alkaline Phosphatase Total Protein Albumin Globulin Albumin/Globulin Ratio Lipase Folate 08/09/17 08/09/17 09:49 09:49 WBC 11.5 H RBC 4.13 L Hgb 12.0 Hct 34.7 L MCV 84.1 MCH 29.0 MCHC 34.5 RDW 13.6 Plt Count 413 H MPV 7.5 Neut % (Auto) 58.1 Lymph % (Auto) 26.9 [place] % (Auto) 10.6 H Eos % (Auto) 3.5 Baso % (Auto) 0.9 Neut # (Auto) 6.6 Lymph # (Auto) 3.1 [place] # (Auto) 1.2 H Eos # (Auto) 0.4 Baso # (Auto) 0.1 Sodium 139 Potassium 4.9 Chloride 104 Carbon Dioxide 25 Anion Gap 15 BUN 11 Creatinine 1.0 Est GFR ( Amer) > 60 Est GFR (Non-Af Amer) > 60 POC Glucose (mg/dL) Random Glucose 336 H Hemoglobin A1c Calcium 8.0 L Total Bilirubin 0.3 AST 17 D ALT 25 Alkaline Phosphatase 60 Total Protein 6.3 Albumin 3.0 L Globulin 3.3 Albumin/Globulin Ratio 0.9 L Lipase 30 Folate Assessment & Plan (1) Ulcerative colitis Assessment and Plan: 37 yo man w/ chronic pain, from UC and peripheral neuropathy. He's not tolerating PO. - f/u GI recommendation - d/c morphine, start Dilaudid 1mg IV prn - increase Neurontin to 600mg q8h - trial of Toradol - patient may return to home PO medication when he resumes PO Status: Acute
--- NOTE | 2017-08-09 11:33 | RAD ---
HISTORY: Abdominal pain, ulcerative colitis COMPARISON: Abdomen pelvis CT 08/07/2017. FINDINGS: BOWEL: There is a nonobstructive bowel gas pattern identified. No free intraperitoneal gas is appreciated grossly. Lesser volume scan be characterized by spine and right abdomen radiographs. Moderately prominent retained fecal talus is seen at the left greater than right hemicolon. No suspicious intra-abdominal calcifications identified. BONES: Normal. OTHER FINDINGS: None. IMPRESSION: Nonobstructive bowel gas pattern appreciated. No suspicious intra-abdominal calcifications or gross free intraperitoneal gas collection.
[2017-08-09] MEDS: MethylPREDNISolone 40 mg Vial IVP SCH ×2 (13:32→18:11)
--- NOTE | 2017-08-09 16:14 | CP.PCM.PN ---
Subjective - Date & Time of Evaluation Date of Evaluation: 08/09/17 Time of Evaluation: 09:00 - Subjective Subjective: Patient states he is having abdominal pain and distention. Also c/o leg pain. Objective - Vital Signs/Intake and Output Vital Signs (last 24 hours): Temp Pulse Resp BP Pulse Ox 97.8 F 85 20 154/77 H 99 08/09/17 07:56 08/09/17 07:56 08/09/17 07:56 08/09/17 07:56 08/09/17 07:56 - Medications Medications: Current Medications Dextrose (Dextrose 50% Inj) 0 ml IVP STAT PRN; Protocol PRN Reason: Hypoglycemia Protocol Gabapentin (Neurontin) 600 mg PO TID [facility] Last Admin: 08/09/17 13:36 Dose: 600 mg Glucagon (Glucagen Diagnostic Kit) 0 mg IM STAT PRN; Protocol PRN Reason: Hypoglycemia Protocol Home Med (Mesalamine [Asacol Hd 800mg]) 800 mg PO TID [facility] Hydromorphone HCl (Dilaudid) 1 mg IVP Q4 PRN PRN Reason: Pain, severe (8-10) Last Admin: 08/09/17 13:26 Dose: 1 mg Ciprofloxacin (Cipro 400mg/200ml Dsw) 400 mg in 200 mls @ 200 mls/hr IVPB Q12 [facility] PRN Reason: Protocol Last Admin: 08/09/17 08:41 Dose: 200 mls/hr Metronidazole (Flagyl 500mg/100ml Ns) 100 mls @ 100 mls/hr IVPB Q8 [facility] PRN Reason: Protocol Last Admin: 08/09/17 08:43 Dose: 100 mls/hr Insulin Detemir (Levemir) 30 units SC HS [facility] Insulin Human Lispro (Humalog) 10 units SC AC [facility] Insulin Human Lispro (Humalog) 0 units SC ACHS [facility] PRN Reason: Protocol Methylprednisolone (Solu-Medrol) 20 mg IVP Q8 [facility] Last Admin: 08/09/17 13:32 Dose: 20 mg Pantoprazole Sodium (Protonix Inj) 40 mg IVP DAILY [facility] Last Admin: 08/09/17 08:48 Dose: 40 mg Valsartan (Diovan) 320 mg PO DAILY [facility] Last Admin: 08/09/17 08:42 Dose: 320 mg - Labs Labs: 08/09/17 09:49 08/09/17 09:49 - Head Exam Head Exam: ATRAUMATIC - Eye Exam Eye Exam: Normal appearance - ENT Exam ENT Exam: Normal Exam - Neck Exam Neck Exam: Full ROM - Respiratory Exam Respiratory Exam: Clear to Ausculation Bilateral, NORMAL BREATHING PATTERN - Cardiovascular Exam Cardiovascular Exam: REGULAR RHYTHM, +S1, +S2 - GI/Abdominal Exam GI & Abdominal Exam: Distended, Soft, Tenderness Assessment and Plan (1) Abdominal pain Assessment & Plan: Still with abdominal pain and distention. Blood sugars are better. Continue IV abx. Add solumedrol 20 ng TID. Status: Acute
[2017-08-09] MEDS: Insulin Lispro (humaLOG) 100 Units/ml Inj SC SCH ×3 (17:11→21:45)
[2017-08-09] MEDS ORDERED: Insulin Detemir 100 Units/ml Inj SC SCH (22:00)
[2017-08-10] MEDS ORDERED: Labetalol 5 mg/ml Inj 20ML IVP STA (00:06)
[2017-08-10] MEDS ORDERED: Insulin Lispro (humaLOG) 100 Units/ml Inj SC STA (00:10)
--- NOTE | 2017-08-10 00:43 | PCM.RRT ---
I.Reason for CLOUD SECURITY ARCHITECT - A) Acute Change in Patient: Subjective: CLOUD SECURITY ARCHITECT Start Time: 12:03am CLOUD SECURITY ARCHITECT Reason: elevated BP S: CLOUD SECURITY ARCHITECT called by RN because pt was noted to have elvated bp. PT denied any CP, SOB, weakness, numbness/tingling, or discomfort. O: Vitals: 205/98, HR 100, O2 sat 99 on rm air, POCG 369 General: Pt seen sitting in bed, comfortable, no acute distress Cardiac: RRR, normal S1, S2, no murmurs, no jvd Lungs: CTABL, no rales, no wheezing, no accessory muscles used Extremities: No LE edema, god pulses CLOUD SECURITY ARCHITECT Interventions: Labetelol IVP 20mg x1, Lispro 10units Repeat BP: 155/85 Assessment: Pt is 37 y/o male with hx of IBD, chronic pain, and DM admitted for UC flare, CLOUD SECURITY ARCHITECT called for elevated BP, asymptomatic, BP responsive to IV meds. Plan: Continue to monitor vitals signs. Hold Methylprednisolone and IV fluids or now. CLOUD SECURITY ARCHITECT MD: Dr. Crane CLOUD SECURITY ARCHITECT End Time: 12:38am
--- NOTE | 2017-08-10 01:12 | CON ---
ENDOCRINOLOGY CONSULTATION DATE: LOCATION: In room 654. HISTORY OF PRESENT ILLNESS: This is a 37-year-old male with known history of irritable bowel syndrome, specifically ulcerative colitis and admitted now with exacerbation of severe and diffuse abdominal pain and has been started on IV steroid therapy with supervening hyperglycemic accelerations as noted thereof. He is being referred now for diabetic evaluation and management. PAST MEDICAL HISTORY: As mentioned above; history of ulcerative colitis and has had previous admissions for exacerbations of the of abdominal pain as noted. He lives with chronic pain both in the abdominal area and lower back pain as noted and currently has been using oxycodone for narcotic analgesic management on the outpatient. Past medical history as mentioned above, history of ulcerative colitis as mentioned, history of hypertensive cardiovascular disease and dyslipidemia, history of type 2 insulin-requiring diabetes on a sliding scale insulin coverage with Humalog given as 10 units as p.r.n. depending on his glucose levels at home. He denies using any long-acting basal insulin at this time. FAMILY HISTORY: Positive for diabetes and hypertension. SOCIAL HISTORY: The patient has supportive family. He admits to previously using nicotine, but has quit smoking actually years ago. REVIEW OF SYSTEMS: As mentioned above. Admits to generalized body weakness with easy fatigability and tiredness and suboptimal energy level. Also admits to worsening dizziness and lightheadedness, especially on the day of admission. No chest pains or palpitations, but admits to progressive bouts of shortness of breath especially on exertion and then at rest. He also admits to marked polyuria, nocturia and polydipsia as noted. Also admits to lower extremity painful paresthesias, currently on gabapentin medications as given. PHYSICAL EXAMINATION GENERAL: This is an average built male in no apparent distress. VITAL SIGNS: Blood pressure of 140/80, pulse of 100 beats per minute regular, temperature 99 and respirations 20. Height is 6 feet 1 inches and weight is 210 pounds. HEENT: Head normocephalic. Eyes anicteric with pink conjunctivae. Funduscopy not possible at this time. Ears, nose and throat otherwise normal. NECK: Supple. Thyroid gland is normal in size. No carotid bruits or cervical adenopathy. CARDIOPULMONARY: Some adynamic precordium. S1 and S2 is rapid and regular. LUNGS: Clear to auscultation. ABDOMEN: Flat and soft with positive bowel sounds. EXTREMITIES: No peripheral edema. Pulses are +2 bilaterally. LABORATORY DATA: His chemistries showed a BUN of 11, sodium 139, potassium 4.9, chloride 104, CO2 of 25, glucose 336 and creatinine 1.0. His glucose levels have ranged from 276 to 340 mg/dL. His hemoglobin A1c is extremely elevated at 12.3% indicative of suboptimal metabolic control of his diabetic condition even prior to this admission. ASSESSMENT: This is a 37-year-old male with uncontrolled and decompensated type-2 insulin-requiring diabetes presenting here with marked hyperglycemic accelerations, currently on high dose IV steroid therapy for management of ulcerative colitis as noted thereof. He also has diabetic microvascular complications of retinopathy and polyneuropathy as noted. PLAN: Plan of management as discussed with the patient and staff; we will modify his current insulin regimen to a more physiologic basal and bolus drug combination as ordered. We will start him with Humalog given as 10 units subcu t.i.d. before meals to start at dinner time today as ordered. We will also add Levemir given as 30 units subcu at bedtime daily to start tonight as given. We will titrate incrementally as indicated to optimize metabolic control. We will initiate diabetic education and dietary instructions as planned this admission. We will follow. Margot Farnsworth MD
[2017-08-10] MEDS: metroNIDAZOLE 500mg/100ml NS 100 ML IVPB SCH ×3 (01:36→17:34)
[2017-08-10] MEDS: MethylPREDNISolone 40 mg Vial IVP SCH ×3 (01:50→17:41)
[2017-08-10] MEDS ORDERED: Insulin Lispro (humaLOG) 100 Units/ml Inj SC ONE (01:55)
[2017-08-10] MEDS: Insulin Lispro (humaLOG) 100 Units/ml Inj SC SCH ×7 (07:09→22:04)
[2017-08-10] MEDS: Ciprofloxacin 400mg/200ml D5W 400 MG/200 ML BAG IVPB SCH ×2 (08:27→22:12)
--- NOTE | 2017-08-10 08:40 | PN ---
DATE: 08/09/2017 SUBJECTIVE: The patient is seen and examined. Interim events noted. Consults noted and appreciated. Gastroenterology followup and intervention noted and appreciated. The patient still complains of significant abdominal pain but requiring narcotics. No chest pain or shortness of breath. No diarrhea. No vomiting. OBJECTIVE: GENERAL: The patient is in no acute distress, but discomfort due to pain. VITAL SIGNS: Stable. HEART: S1 and S2, normal and regular. LUNGS: Good bilateral air exchange. ABDOMEN: No sign of acute abdomen. No guarding, no rigidity, no rebound, but the patient complains of pain. Bowel sounds are plus and normal. No sign of acute abdomen. Abdomen is otherwise soft and nontender. EXTREMITIES: No edema, no calf swelling. No tenderness. No acute ischemia. 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 DIAGNOSTIC DATA: Available diagnostic data reviewed. PLAN: Overall, the patient's general medical condition is hemodynamically stable, but still has significant abdominal pain. PLAN: Plan as ordered. Case and plan discussed with the patient. Shyam Huertas MD
[2017-08-10 09:48] LABS: HEMOGLOBIN 12.9 g/dL (12.0-18.0); MEAN CELL VOLUME 83.8 fl (80.0-94.0); MEAN CORPUSCULAR HEMOGLOBIN 29.3 pg (27.0-31.0); RBC 4.4 Mil/uL (4.40-5.90); RED CELL DISTRIBUTION WIDTH 13.5 % (11.5-14.5)
[2017-08-10 10:01] LABS: BLOOD UREA NITROGEN 16 mg/dl (9-20); CALCIUM 8.5 mg/dL (8.4-10.2); GFR AFRICAN-AMERICAN > 60; GFR NON-AFRICAN AMERICAN > 60
--- NOTE | 2017-08-10 11:37 | PN ---
DATE: 08/10/2017 SUBJECTIVE: The patient is seen and examined. Interim events noted. Consults noted and appreciated. Gastroenterology followup and intervention noted and appreciated. Endocrinology interventions noted and appreciated. The patient remains in the regular medical floor, was feeling a little better yesterday, but then started feeling bad again, pain is still present almost unchanged, also had done because of elevated blood pressure. Currently, the patient is comfortable. Pain is controlled on current medication. No chest pain or shortness of breath, but abdominal pain is better. PHYSICAL EXAMINATION: VITAL SIGNS: Blood pressure remains elevated. Other vital signs are stable. HEART: S1 and S2, normal and regular. LUNGS: Good bilateral air exchange. ABDOMEN: Soft and nontender. EXTREMITIES: No edema, no calf swelling. No tenderness. No acute ischemia. 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 DIAGNOSTIC DATA: Available diagnostic data reviewed. PLAN: Overall, the patient's general medical condition is essentially the . Plan as ordered. Shyam Huertas MD
[2017-08-10] MEDS ORDERED: Magnesium Citrate Oral SOL (300 ml) PO ONE ×2 (14:07→22:00)
[2017-08-10] MEDS ORDERED: Bisacodyl 5mg EC Tab PO ONE (18:00)
--- NOTE | 2017-08-10 21:18 | PN ---
ENDOCRINOLOGY FOLLOWUP NOTE DATE: LOCATION: Room 654. SUBJECTIVE: This is a 37-year-old male presenting here with acute exacerbation of ulcerative colitis and currently on IV Solu-Medrol therapy with supervening hyperglycemic accelerations as noted thereof. His glucose values are fluctuating and today's glycemic profile have ranged from the glucose levels at 334-368 mg/dL. It was 369 at bedtime last night. His hemoglobin A1c is 12.3% which is quite elevated and indicative of suboptimal metabolic control of his diabetic condition even prior to this admission. His latest chemistry showed a BUN of 16, sodium 136, potassium 4.7, chloride 100, CO2 of 25, glucose 343 and creatinine 1.0. ASSESSMENT: This is a 37-year-old male with uncontrolled and decompensated type 2 insulin-requiring diabetes with marked hyperglycemic accelerations and clearly related to the intercurrent steroid therapy with increased insulin resistance thereof and should improve accordingly as his IV steroids are tapered down. However, with the elevated A1c of 12.3% this is indicative of suboptimal metabolic control of his diabetic condition even prior to this admission. So clearly he is insulin-requiring type 2 diabetic management. PLAN OF MANAGEMENT: As discussed with the patient and staff, we will modify his current insulin regimen and titrate his basal and bolus insulin drug combination to Humalog given as 16 units subcu t.i.d. before meals to start at dinnertime today as ordered. We will also titrate and increase his Levemir to 44 units subcu at bedtime daily to start tonight. We will continue the low-dose correction scale using Humalog insulin as given. We will obtain serial chemistries and supplement accordingly needed. We will follow. Margot Farnsworth MD
[2017-08-10] MEDS: Enoxaparin 40 mg Syringe SC SCH (21:50)
[2017-08-10] MEDS ORDERED: Insulin Detemir 100 Units/ml Inj SC SCH (22:00)
--- NOTE | 2017-08-10 23:38 | CP.PCM.PN ---
Subjective - Date & Time of Evaluation Date of Evaluation: 08/10/17 Time of Evaluation: 14:35 - Subjective Subjective: Still with abdominal pain though patient states it improves with solumedrol Objective - Vital Signs/Intake and Output Vital Signs (last 24 hours): Temp Pulse Resp BP Pulse Ox 97.7 F 95 H 18 154/94 H 99 08/10/17 16:20 08/10/17 16:20 08/10/17 16:20 08/10/17 16:20 08/10/17 16:20 - Medications Medications: Current Medications Dextrose (Dextrose 50% Inj) 0 ml IVP STAT PRN; Protocol PRN Reason: Hypoglycemia Protocol Enoxaparin Sodium (Lovenox) 40 mg SC Q24H [facility] PRN Reason: Protocol Last Admin: 08/10/17 21:50 Dose: Not Given Gabapentin (Neurontin) 600 mg PO TID [facility] Last Admin: 08/10/17 17:39 Dose: 600 mg Glucagon (Glucagen Diagnostic Kit) 0 mg IM STAT PRN; Protocol PRN Reason: Hypoglycemia Protocol Home Med (Mesalamine [Asacol Hd 800mg]) 800 mg PO TID [facility] Hydromorphone HCl (Dilaudid) 1 mg IVP Q4 PRN PRN Reason: Pain, severe (8-10) Last Admin: 08/10/17 23:15 Dose: 1 mg Ciprofloxacin (Cipro 400mg/200ml Dsw) 400 mg in 200 mls @ 200 mls/hr IVPB Q12 [facility] PRN Reason: Protocol Last Admin: 08/10/17 22:12 Dose: 200 mls/hr Metronidazole (Flagyl 500mg/100ml Ns) 100 mls @ 100 mls/hr IVPB Q8 [facility] PRN Reason: Protocol Last Admin: 08/10/17 17:34 Dose: 100 mls/hr Insulin Detemir (Levemir) 44 units SC HS [facility] Last Admin: 08/10/17 22:04 Dose: Not Given Insulin Human Lispro (Humalog) 0 units SC ACHS [facility] PRN Reason: Protocol Last Admin: 08/10/17 22:04 Dose: Not Given Insulin Human Lispro (Humalog) 16 units SC AC [facility] Last Admin: 08/10/17 17:38 Dose: 16 units Methylprednisolone (Solu-Medrol) 20 mg IVP Q8 [facility] Last Admin: 08/10/17 17:41 Dose: 20 mg Pantoprazole Sodium (Protonix Inj) 40 mg IVP DAILY [facility] Last Admin: 08/10/17 08:41 Dose: 40 mg Valsartan (Diovan) 320 mg PO DAILY [facility] Last Admin: 08/10/17 08:33 Dose: 320 mg - Labs Labs: 08/10/17 09:36 08/10/17 09:36 - Head Exam Head Exam: ATRAUMATIC - Eye Exam Eye Exam: Normal appearance - Neck Exam Neck Exam: Normal Inspection - Respiratory Exam Respiratory Exam: NORMAL BREATHING PATTERN - Cardiovascular Exam Cardiovascular Exam: REGULAR RHYTHM, +S1, +S2 - GI/Abdominal Exam GI & Abdominal Exam: Soft. absent: Tenderness Assessment and Plan (1) Abdominal pain Assessment & Plan: R/o Crohns, UC, or other colitis. Continue steroids. Colonoscopy Monday, Status: Acute
[2017-08-11] MEDS: MethylPREDNISolone 40 mg Vial IVP SCH ×3 (00:33→21:58)
[2017-08-11] MEDS: Sodium Chloride 0.45% 1,000 ML IV SCH ×3 (00:34→20:15)
[2017-08-11] MEDS: metroNIDAZOLE 500mg/100ml NS 100 ML IVPB SCH ×3 (00:34→16:46)
[2017-08-11 06:33] LABS: HEMOGLOBIN 13.6 g/dL (12.0-18.0); MEAN CELL VOLUME 83.9 fl (80.0-94.0); MEAN CORPUSCULAR HEMOGLOBIN 29.3 pg (27.0-31.0); RBC 4.64 Mil/uL (4.40-5.90); RED CELL DISTRIBUTION WIDTH 13.6 % (11.5-14.5); WHITE BLOOD COUNT 22.5 K/uL (4.8-10.8)
[2017-08-11 06:54] LABS: BLOOD UREA NITROGEN 19 mg/dl (9-20); CALCIUM 9.1 mg/dL (8.4-10.2); GFR AFRICAN-AMERICAN > 60; GFR NON-AFRICAN AMERICAN > 60
--- NOTE | 2017-08-11 07:39 | CP.PCM.PN ---
Subjective - Date & Time of Evaluation Date of Evaluation: 08/11/17 Time of Evaluation: 07:30 - Subjective Subjective: Patient evaluated at bedside with Dr Huertas during walking rounds today. Abd pain still present but slightly improved with steroids. Denies vomiting, nausea, CP, SOB. Afebrile. Received stool prep for scheduled Colonoscopy by GI today. On nPO since midnight. Objective - Vital Signs/Intake and Output Vital Signs (last 24 hours): Temp Pulse Resp BP Pulse Ox 97.7 F 93 H 18 151/84 H 97 08/11/17 00:18 08/11/17 00:18 08/11/17 00:18 08/11/17 00:18 08/11/17 00:18 - Medications Medications: Current Medications Dextrose (Dextrose 50% Inj) 0 ml IVP STAT PRN; Protocol PRN Reason: Hypoglycemia Protocol Enoxaparin Sodium (Lovenox) 40 mg SC Q24H [facility] PRN Reason: Protocol Last Admin: 08/10/17 21:50 Dose: Not Given Gabapentin (Neurontin) 600 mg PO TID [facility] Last Admin: 08/10/17 17:39 Dose: 600 mg Glucagon (Glucagen Diagnostic Kit) 0 mg IM STAT PRN; Protocol PRN Reason: Hypoglycemia Protocol Home Med (Mesalamine [Asacol Hd 800mg]) 800 mg PO TID [facility] Hydromorphone HCl (Dilaudid) 1 mg IVP Q4 PRN PRN Reason: Pain, severe (8-10) Last Admin: 08/11/17 03:17 Dose: 1 mg Ciprofloxacin (Cipro 400mg/200ml Dsw) 400 mg in 200 mls @ 200 mls/hr IVPB Q12 [facility] PRN Reason: Protocol Last Admin: 08/10/17 22:12 Dose: 200 mls/hr Metronidazole (Flagyl 500mg/100ml Ns) 100 mls @ 100 mls/hr IVPB Q8 [facility] PRN Reason: Protocol Last Admin: 08/11/17 00:34 Dose: 100 mls/hr Sodium Chloride (Sodium Chloride 0.45%) 1,000 mls @ 100 mls/hr IV .Q10H [facility] Stop: 08/12/17 00:15 Last Admin: 08/11/17 00:34 Dose: 100 mls/hr Insulin Detemir (Levemir) 44 units SC [facility] Last Admin: 08/10/17 22:04 Dose: Not Given Insulin Human Lispro (Humalog) 0 units SC ACHS [facility] PRN Reason: Protocol Last Admin: 08/10/17 22:04 Dose: Not Given Insulin Human Lispro (Humalog) 16 units SC AC [facility] Last Admin: 08/10/17 17:38 Dose: 16 units Methylprednisolone (Solu-Medrol) 20 mg IVP Q8 [facility] Last Admin: 08/11/17 00:33 Dose: 20 mg Pantoprazole Sodium (Protonix Inj) 40 mg IVP DAILY [facility] Last Admin: 08/10/17 08:41 Dose: 40 mg Valsartan (Diovan) 320 mg PO DAILY [facility] Last Admin: 08/10/17 08:33 Dose: 320 mg - Labs Labs: 08/11/17 05:00 08/11/17 05:00 - Constitutional Appears: Non-toxic - Eye Exam Eye Exam: EOMI, PERRL - ENT Exam ENT Exam: Mucous Membranes Moist - Respiratory Exam Respiratory Exam: Clear to Ausculation Bilateral, NORMAL BREATHING PATTERN. absent: Rales - Cardiovascular Exam Cardiovascular Exam: REGULAR RHYTHM, +S1, +S2. absent: Gallop - GI/Abdominal Exam GI & Abdominal Exam: Guarding (Mild), Soft, Tenderness (Diffuse), Normal Bowel Sounds. absent: Rebound - Extremities Exam Extremities Exam: Full ROM, Normal Inspection - Neurological Exam Neurological Exam: Alert, Awake, Normal Gait, Oriented x3 - Psychiatric Exam Psychiatric exam: Normal Affect, Normal Mood - Skin Skin Exam: Normal Color, Warm Assessment and Plan - Assessment and Plan (Free Text) Assessment: IBD: UC VS Crohn's, DM, HTN For Colonoscopy today by GI Still c/o abd pain abd imaging reported colitis/Crohn's Noncompliant with home meds C/W Steroids BS levels and BP increased likely due to Steroids C/W DM management by Endocrinology C/W BP meds: Improved after addition of Amlodipine yesterday
[2017-08-11] MEDS: Ciprofloxacin 400mg/200ml D5W 400 MG/200 ML BAG IVPB SCH ×2 (09:36→21:58)
[2017-08-11] MEDS: Insulin Lispro (humaLOG) 100 Units/ml Inj SC SCH ×10 (09:38→22:07)
[2017-08-11] MEDS ORDERED: Insulin Lispro (humaLOG) 100 Units/ml Inj SC SCH (09:52)
[2017-08-11] MEDS ORDERED: Insulin Regular 100 units/ml SC SCH (11:30)
[2017-08-11 12:24] LABS: BLOOD UREA NITROGEN 20 mg/dl (9-20); CALCIUM 8.7 mg/dL (8.4-10.2); GFR AFRICAN-AMERICAN > 60; GFR NON-AFRICAN AMERICAN > 60
--- NOTE | 2017-08-11 15:54 | CP.PCM.PN ---
Subjective - Date & Time of Evaluation Date of Evaluation: 08/11/17 Time of Evaluation: 15:52 - Subjective Subjective: Still with midabdominal pain. Was scheduled for elective colonoscopy but it had to be cancelled due to very high glucoselevel , over 300. Objective - Vital Signs/Intake and Output Vital Signs (last 24 hours): Temp Pulse Resp BP Pulse Ox 97.2 F L 83 19 142/82 96 08/11/17 08:02 08/11/17 08:02 08/11/17 08:02 08/11/17 08:02 08/11/17 08:02 - Medications Medications: Current Medications Amlodipine Besylate (Norvasc) 5 mg PO DAILY [facility] Last Admin: 08/11/17 10:54 Dose: Not Given Dextrose (Dextrose 50% Inj) 0 ml IVP STAT PRN; Protocol PRN Reason: Hypoglycemia Protocol Enoxaparin Sodium (Lovenox) 40 mg SC Q24H [facility] PRN Reason: Protocol Last Admin: 08/10/17 21:50 Dose: Not Given Gabapentin (Neurontin) 600 mg PO TID [facility] Last Admin: 08/11/17 13:18 Dose: Not Given Glucagon (Glucagen Diagnostic Kit) 0 mg IM STAT PRN; Protocol PRN Reason: Hypoglycemia Protocol Home Med (Mesalamine [Asacol Hd 800mg]) 800 mg PO TID [facility] Hydromorphone HCl (Dilaudid) 1 mg IVP Q4 PRN PRN Reason: Pain, severe (8-10) Last Admin: 08/11/17 12:27 Dose: 1 mg Ciprofloxacin (Cipro 400mg/200ml Dsw) 400 mg in 200 mls @ 200 mls/hr IVPB Q12 [facility] PRN Reason: Protocol Last Admin: 08/11/17 09:36 Dose: 200 mls/hr Sodium Chloride (Sodium Chloride 0.45%) 1,000 mls @ 100 mls/hr IV .Q10H [facility] Stop: 08/12/17 00:15 Last Admin: 08/11/17 10:53 Dose: Not Given Metronidazole (Flagyl 500mg/100ml Ns) 100 mls @ 100 mls/hr IVPB BID [facility] PRN Reason: Protocol Insulin Detemir (Levemir) 50 units SC HS [facility] Insulin Human Lispro (Humalog) 0 units SC ACHS [facility] PRN Reason: Protocol Last Admin: 08/11/17 14:43 Dose: 6 units Insulin Human Lispro (Humalog) 20 units SC AC [facility] Methylprednisolone (Solu-Medrol) 20 mg IVP Q12 [facility] Pantoprazole Sodium (Protonix Inj) 40 mg IVP DAILY [facility] Last Admin: 08/11/17 09:40 Dose: 40 mg Valsartan (Diovan) 320 mg PO DAILY [facility] Last Admin: 08/11/17 10:53 Dose: Not Given - Labs Labs: 08/11/17 05:00 08/11/17 12:08 - Head Exam Head Exam: ATRAUMATIC - Eye Exam Eye Exam: Normal appearance - ENT Exam ENT Exam: Mucous Membranes Moist - Respiratory Exam Respiratory Exam: NORMAL BREATHING PATTERN - Cardiovascular Exam Cardiovascular Exam: REGULAR RHYTHM, +S1, +S2 - GI/Abdominal Exam GI & Abdominal Exam: Distended, Tenderness, Normal Bowel Sounds Additional comments: Midabdominal tenderness, no guarding or rebound. Assessment and Plan (1) Abdominal pain Assessment & Plan: Cause of abdominal pain still unclear. Will start diet and see if tolerated. Solumedrol now at 20 mg IV BID. Colonoscopy Monday if still hospitalized., Otherwise will do as outpatient. Status: Acute
[2017-08-11] MEDS ORDERED: methylPREDNISolone 20 MG in Sodium Chloride 0.9% 50 ML IVPB SCH (21:00)
[2017-08-11] MEDS ORDERED: Insulin Detemir 100 Units/ml Inj SC SCH (22:00)
[2017-08-11] MEDS: Enoxaparin 40 mg Syringe SC SCH (22:10)
--- NOTE | 2017-08-11 23:56 | PN ---
ENDOCRINOLOGY FOLLOWUP NOTE DATE: LOCATION: Room 654. SUBJECTIVE: This is a 37-year-old male with recent uncontrolled type 2 insulin-requiring diabetes now being followed closely for metabolic management. He also has an acute flare-up of ulcerative colitis and has been started on IV steroid therapy with supervening hyperglycemic fluctuations as expected thereof. His glucose levels today are still ranging from 294 to 310 and 350 mg/dL. The latest chemistry showed a BUN of 20, sodium 136, potassium 5.0, chloride 99, CO2 of 28, glucose 334 and creatinine 0.9. So at this time, we will continue the same basal and bolus insulin regimen to allow for dose equilibration and keep him on the Humalog given as 20 units subcu t.i.d. before meals to start at dinnertime today as ordered. This is actually a higher dose titration as given starting for dinner today. We will continue the basal insulin given as Levemir at 50 units subcu at bedtime daily as ordered. We will titrate incrementally as indicated to optimize metabolic control. We will also continue the low-dose correction scale using Humalog insulin as given. We will obtain serial chemistries and supplement accordingly needed. Moreover, we will titrate and adjust his dose regimen as they taper down the steroids accordingly. Margot Farnsworth MD
[2017-08-12] MEDS: Ciprofloxacin 400mg/200ml D5W 400 MG/200 ML BAG IVPB SCH ×2 (08:24→20:54)
[2017-08-12] MEDS: metroNIDAZOLE 500mg/100ml NS 100 ML IVPB SCH ×2 (08:25→16:00)
[2017-08-12] MEDS: Insulin Lispro (humaLOG) 100 Units/ml Inj SC SCH ×7 (08:27→21:55)
[2017-08-12 08:30] LABS: BASO % 0.2 % (0.0-2.0); LYMPH # 1.6 K/uL (1.0-4.3); LYMPH % 9.3 % (20.0-40.0); MEAN CELL VOLUME 85.2 fl (80.0-94.0); MEAN CORPUSCULAR HEMOGLOBIN 29.5 pg (27.0-31.0); MEAN CORPUSCULAR HGB CONC 34.6 g/dL (33.0-37.0); MEAN PLATELET VOLUME 7.8 fl (7.2-11.7); MONO # 1.4 K/uL (0.0-0.8); MONO % 8.3 % (0.0-10.0); NEUT # 14.3 K/uL (1.8-7.0); NEUT % 82.2 % (50.0-75.0); NRBC % 0.1 % (0.0-0.0); PLATELET COUNT 515 K/uL (130-400); RBC 4.42 Mil/uL (4.40-5.90); RED CELL DISTRIBUTION WIDTH 13.4 % (11.5-14.5); WHITE BLOOD COUNT 17.4 K/uL (4.8-10.8)
[2017-08-12] MEDS: MethylPREDNISolone 40 mg Vial IVP SCH ×2 (08:31→21:08)
[2017-08-12 08:48] LABS: ALBUMIN 3.4 g/dL (3.5-5.0); ALT/SGPT 41 U/L (21-72); AST/SGOT 34 U/L (17-59); BLOOD UREA NITROGEN 28 mg/dl (9-20); CALCIUM 8.8 mg/dL (8.4-10.2); GFR AFRICAN-AMERICAN > 60; GFR NON-AFRICAN AMERICAN > 60
[2017-08-12 09:51] LABS: LYMPHOCYTE 12 % (20-50); MONOCYTE 5 % (0-10); NEUTROPHIL 81 % (42-75); REACTIVE LYMPHOCYTES 2 % (0-0); TOTAL CELLS COUNTED 100
[2017-08-12 09:52] LABS: PLATELET ESTIMATE INCREASED (NORMAL)
[2017-08-12 09:53] LABS: GIANT PLATELETS PRESENT
[2017-08-12 09:54] LABS: MICROCYTOSIS SLIGHT; TOXIC GRANULATION PRESENT
[2017-08-12 09:55] LABS: SPHEROCYTES SLIGHT
--- NOTE | 2017-08-12 11:31 | PN ---
DATE: 08/12/2017 SUBJECTIVE: The patient is seen and examined. Interim events noted. Consults noted and appreciated. Cardiology and Endocrinology followup and intervention noted and appreciated. Colonoscopy was canceled due to high blood sugar. The patient had episodes of pain is controlled by current medication. Denies any vomiting, diarrhea, or constipation. PHYSICAL EXAMINATION GENERAL: The patient is in no acute distress. VITAL SIGNS: Stable. HEART: S1 and S2, normal and regular. LUNGS: Good bilateral air exchange. ABDOMEN: Soft and nontender. No sign of acute abdomen. No guarding, no rigidity, and no rebound. Bowel sounds are present and normal. EXTREMITIES: No edema, no calf swelling, and no tenderness. No acute ischemia. CENTRAL NERVOUS SYSTEMS: Essentially unchanged. DIAGNOSTIC DATA: Available diagnostic data reviewed. Accu-Cheks remains elevated. IMPRESSION AND PLAN: Overall, the patient's general medical condition seemed to be slowly improving. Plan as ordered. Shyam Huertas MD
--- NOTE | 2017-08-12 12:59 | PN ---
DATE: ENDO FOLLOWUP NOTE LOCATION: Room 654. SUBJECTIVE: This is a 37-year-old male with acute exacerbation of ulcerative colitis, presenting with diffuse abdominal pain and currently on IV steroid therapy being tapered down and now is on Solu-Medrol at 20 mg IV piggyback every 12 hours as noted. Expected hyperglycemic accelerations of supervene related to the increased insulin resistance from the effects of steroids with further glycemic accelerations as expected. Her glucose values overnight have ranged from 377 mg/dL to 392 mg/dL. The latest chemistry showed BUN of 28, sodium of 135, potassium of 5.0, chloride of 96, CO2 of 29, glucose of 386, and creatinine of 1.0. So at this time, we will modify once again his basal and bolus insulin regimen and increase the Humalog to 24 units subcu t.i.d. before meals to start at lunchtime today as ordered. We will also continue the low-dose correction scale using Humalog insulin as given to obviate hypoglycemia. We will also increase the basal insulin with Levemir to be given as 60 units subcu at bedtime daily to start tonight. We will obtain serial chemistries and supplement accordingly as needed. We will follow. Margot Farnsworth MD
[2017-08-12] MEDS: Enoxaparin 40 mg Syringe SC SCH (21:06)
[2017-08-12] MEDS ORDERED: Insulin Detemir 100 Units/ml Inj SC SCH (22:00)
--- NOTE | 2017-08-12 23:56 | CP.PCM.PN ---
Subjective - Date & Time of Evaluation Date of Evaluation: 08/12/17 Time of Evaluation: 23:54 - Subjective Subjective: Has ongoing abdominal pain. On IV steroids Objective - Vital Signs/Intake and Output Vital Signs (last 24 hours): Temp Pulse Resp BP Pulse Ox 97.3 F L 84 20 169/109 H 97 08/12/17 23:42 08/12/17 23:42 08/12/17 23:42 08/12/17 23:42 08/12/17 23:42 - Medications Medications: Current Medications Amlodipine Besylate (Norvasc) 5 mg PO DAILY [facility] Last Admin: 08/12/17 08:29 Dose: 5 mg Clonidine HCl (Catapres) 0.2 mg PO Q6 PRN PRN Reason: BP > 160/90 Dextrose (Dextrose 50% Inj) 0 ml IVP STAT PRN; Protocol PRN Reason: Hypoglycemia Protocol Enoxaparin Sodium (Lovenox) 40 mg SC Q24H [facility] PRN Reason: Protocol Last Admin: 08/12/17 21:06 Dose: 40 mg Gabapentin (Neurontin) 600 mg PO TID [facility] Last Admin: 08/12/17 15:59 Dose: 600 mg Glucagon (Glucagen Diagnostic Kit) 0 mg IM STAT PRN; Protocol PRN Reason: Hypoglycemia Protocol Home Med (Mesalamine [Asacol Hd 800mg]) 800 mg PO TID [facility] Hydromorphone HCl (Dilaudid) 1 mg IVP Q4 PRN PRN Reason: Pain, severe (8-10) Last Admin: 08/12/17 21:51 Dose: 1 mg Ciprofloxacin (Cipro 400mg/200ml Dsw) 400 mg in 200 mls @ 200 mls/hr IVPB Q12 [facility] PRN Reason: Protocol Last Admin: 08/12/17 20:54 Dose: 200 mls/hr Metronidazole (Flagyl 500mg/100ml Ns) 100 mls @ 100 mls/hr IVPB BID [facility] PRN Reason: Protocol Last Admin: 08/12/17 16:00 Dose: 100 mls/hr Insulin Detemir (Levemir) 60 units SC HS [facility] Last Admin: 08/12/17 21:55 Dose: 60 u Insulin Human Lispro (Humalog) 0 units SC ACHS [facility] PRN Reason: Protocol Last Admin: 08/12/17 21:55 Dose: Not Given Insulin Human Lispro (Humalog) 24 units SC AC [facility] Last Admin: 08/12/17 17:05 Dose: 24 units Methylprednisolone (Solu-Medrol) 20 mg IVP Q12 [facility] Last Admin: 08/12/17 21:08 Dose: 20 mg Pantoprazole Sodium (Protonix Ec Tab) 40 mg PO DAILY [facility] Valsartan (Diovan) 320 mg PO DAILY [facility] Last Admin: 08/12/17 08:26 Dose: 320 mg - Labs Labs: 08/12/17 06:49 08/12/17 06:49 - Head Exam Head Exam: ATRAUMATIC - Eye Exam Eye Exam: Normal appearance - ENT Exam ENT Exam: Mucous Membranes Moist - Neck Exam Neck Exam: Full ROM - Respiratory Exam Respiratory Exam: NORMAL BREATHING PATTERN - GI/Abdominal Exam GI & Abdominal Exam: Soft, Tenderness, Normal Bowel Sounds - Extremities Exam Extremities Exam: Normal Inspection Assessment and Plan (1) Abdominal pain Assessment & Plan: Ongoing abdominal pain. Will schedule colonscopy for Monday. Will need good blood sugar control to be able to tolerate procedure. Status: Acute
[2017-08-13] MEDS: Insulin Lispro (humaLOG) 100 Units/ml Inj SC SCH ×7 (07:05→22:00)
[2017-08-13 07:15] LABS: HEMOGLOBIN 13.8 g/dL (12.0-18.0); MEAN CELL VOLUME 84.8 fl (80.0-94.0); MEAN CORPUSCULAR HEMOGLOBIN 29.7 pg (27.0-31.0); RBC 4.66 Mil/uL (4.40-5.90); RED CELL DISTRIBUTION WIDTH 13.5 % (11.5-14.5); WHITE BLOOD COUNT 19.6 K/uL (4.8-10.8)
[2017-08-13 07:46] LABS: ALBUMIN 3.3 g/dL (3.5-5.0); ALT/SGPT 41 U/L (21-72); AST/SGOT 29 U/L (17-59); BLOOD UREA NITROGEN 30 mg/dl (9-20); CALCIUM 8.6 mg/dL (8.4-10.2); GFR AFRICAN-AMERICAN > 60; GFR NON-AFRICAN AMERICAN > 60
--- NOTE | 2017-08-13 08:29 | PN ---
DATE: 08/13/2017 SUBJECTIVE: The patient is seen and examined. Interim events noted. Consults noted and appreciated. Endocrinology, Gastroenterology consults and intervention noted and appreciated. The patient remains in regular medical floor. and also his high blood pressure, telephone orders were obtained. Blood pressure now is 117. PHYSICAL EXAMINATION: GENERAL: The patient is in no acute distress. VITAL SIGNS: Stable. HEART: S1 and S2, normal and regular. LUNGS: Good bilateral air exchange. ABDOMEN: The patient does have sensitivity in abdomen generalized with no sign of acute abdomen. No guarding. No rigidity. No rebound. Bowel sounds are present and normal. EXTREMITIES: No edema. No calf swelling. No tenderness. No acute ischemia. CENTRAL NERVOUS SYSTEM: Essentially unchanged. DIAGNOSTIC DATA: Available diagnostic data reviewed. PLAN: Overall, the patient's general medical condition remains hemodynamically stable, although blood pressure remains elevated, which is now controlled. Shyam Huertas MD
[2017-08-13] MEDS: Ciprofloxacin 400mg/200ml D5W 400 MG/200 ML BAG IVPB SCH ×2 (08:55→21:45)
[2017-08-13] MEDS: metroNIDAZOLE 500mg/100ml NS 100 ML IVPB SCH ×2 (08:56→17:43)
[2017-08-13] MEDS: Pantoprazole 40 mg EC Tab PO SCH (08:58)
[2017-08-13] MEDS: MethylPREDNISolone 40 mg Vial IVP SCH ×2 (08:59→21:48)
[2017-08-13] MEDS ORDERED: Magnesium Citrate Oral SOL (300 ml) PO ONE (13:00)
--- NOTE | 2017-08-13 14:31 | PN ---
DATE: ENDOCRINOLOGY FOLLOWUP NOTE LOCATION: Room 654. SUBJECTIVE: This is a 37-year-old male with recent uncontrolled type 2 insulin-requiring diabetes, currently on IV steroid therapy for acute exacerbation of ulcerative colitis and is now being followed closely for metabolic management. LABORATORY DATA: His glycemic levels are still fluctuating as noted and expected with glucose values ranging from 313 to 409 mg/dl. The latest chemistry showed a BUN of 30, sodium 132, potassium 5.2, chloride 91, CO2 26, glucose 494 and creatinine 1.0. PLAN: So at this time, we will modify once again his basal insulin and increase the Levemir to 80 units subcu at bedtime daily to start tonight. Would expect higher insulin requirement with underlying increased insulin resistance from the IV steroid therapy as given. We will also continue the low-dose correction scale using Humalog insulin as given. Moreover, we will increase the prandial insulin with Humalog to be given as 30 units subcu t.i.d. before meals to start at dinnertime today as ordered. We will titrate incremental as indicated to optimize metabolic control. We will obtain serial chemistries and supplement accordingly needed. We will follow. Margot Farnsworth MD
[2017-08-13] MEDS ORDERED: Bisacodyl 5mg EC Tab PO ONE (16:30)
--- NOTE | 2017-08-13 17:25 | CP.PCM.PN ---
Subjective - Date & Time of Evaluation Date of Evaluation: 08/13/17 Time of Evaluation: 17:23 - Subjective Subjective: Still with abdominal pain and distention. Feels better when receiving steroids. Has had labile BP and blood sugar over past 2 days. Objective - Vital Signs/Intake and Output Vital Signs (last 24 hours): Temp Pulse Resp BP Pulse Ox 97.2 F L 87 20 155/98 H 98 08/13/17 16:20 08/13/17 16:20 08/13/17 16:20 08/13/17 16:20 08/13/17 16:20 - Medications Medications: Current Medications Amlodipine Besylate (Norvasc) 10 mg PO DAILY [facility] Last Admin: 08/13/17 08:58 Dose: Not Given Clonidine HCl (Catapres) 0.2 mg PO Q6 PRN PRN Reason: BP > 160/90 Dextrose (Dextrose 50% Inj) 0 ml IVP STAT PRN; Protocol PRN Reason: Hypoglycemia Protocol Enoxaparin Sodium (Lovenox) 40 mg SC Q24H [facility] PRN Reason: Protocol Last Admin: 08/12/17 21:06 Dose: 40 mg Gabapentin (Neurontin) 600 mg PO TID [facility] Last Admin: 08/13/17 15:17 Dose: 600 mg Glucagon (Glucagen Diagnostic Kit) 0 mg IM STAT PRN; Protocol PRN Reason: Hypoglycemia Protocol Home Med (Mesalamine [Asacol Hd 800mg]) 800 mg PO TID [facility] Hydromorphone HCl (Dilaudid) 1 mg IVP Q4 PRN PRN Reason: Pain, severe (8-10) Last Admin: 08/13/17 15:14 Dose: 1 mg Ciprofloxacin (Cipro 400mg/200ml Dsw) 400 mg in 200 mls @ 200 mls/hr IVPB Q12 [facility] PRN Reason: Protocol Last Admin: 08/13/17 08:55 Dose: 200 mls/hr Metronidazole (Flagyl 500mg/100ml Ns) 100 mls @ 100 mls/hr IVPB BID [facility] PRN Reason: Protocol Last Admin: 08/13/17 08:56 Dose: 100 mls/hr Sodium Chloride (Sodium Chloride 0.9%) 500 mls @ 60 mls/hr IV .Q8H20M [facility] Insulin Detemir (Levemir) 80 units SC HS [facility] Insulin Human Lispro (Humalog) 0 units SC ACHS [facility] PRN Reason: Protocol Last Admin: 08/13/17 12:28 Dose: 8 units Insulin Human Lispro (Humalog) 30 units SC AC [facility] Methylprednisolone (Solu-Medrol) 20 mg IVP Q12 [facility] Last Admin: 08/13/17 08:59 Dose: 20 mg Pantoprazole Sodium (Protonix Ec Tab) 40 mg PO DAILY [facility] Last Admin: 08/13/17 08:58 Dose: 40 mg Valsartan (Diovan) 320 mg PO DAILY [facility] Last Admin: 08/13/17 08:56 Dose: Not Given - Labs Labs: 08/13/17 05:20 08/13/17 05:20 - Head Exam Head Exam: ATRAUMATIC - Eye Exam Eye Exam: Normal appearance - ENT Exam ENT Exam: Mucous Membranes Moist - Neck Exam Neck Exam: Normal Inspection - Respiratory Exam Respiratory Exam: Clear to Ausculation Bilateral - Cardiovascular Exam Cardiovascular Exam: REGULAR RHYTHM, +S1, +S2 - GI/Abdominal Exam GI & Abdominal Exam: Distended, Tenderness (lower abdominal tenderness , no guarding or rebound) Assessment and Plan (1) Abdominal pain Assessment & Plan: Ongoing abdominal pain . R/O IBD. For colonoscopy Monday Status: Acute
[2017-08-13] MEDS: Sodium Chloride 0.9% 500 ML IV SCH (22:00)
[2017-08-13] MEDS: Insulin Detemir 100 Units/ml Inj SC SCH (22:12)
[2017-08-14] MEDS: Sodium Chloride 0.9% 500 ML IV SCH (06:00)
[2017-08-14 06:50] LABS: HEMOGLOBIN 14.7 g/dL (12.0-18.0); MEAN CELL VOLUME 83.9 fl (80.0-94.0); MEAN CORPUSCULAR HEMOGLOBIN 29.1 pg (27.0-31.0); MEAN CORPUSCULAR HGB CONC 34.7 g/dL (33.0-37.0); RBC 5.04 Mil/uL (4.40-5.90); RED CELL DISTRIBUTION WIDTH 13.6 % (11.5-14.5); WHITE BLOOD COUNT 24.3 K/uL (4.8-10.8)
[2017-08-14 07:04] LABS: ALBUMIN 3.6 g/dL (3.5-5.0); ALT/SGPT 40 U/L (21-72); AST/SGOT 27 U/L (17-59); BLOOD UREA NITROGEN 27 mg/dl (9-20); GFR AFRICAN-AMERICAN > 60; GFR NON-AFRICAN AMERICAN > 60
--- NOTE | 2017-08-14 08:03 | PN ---
DATE: 08/14/2017 SUBJECTIVE: The patient is seen and examined. Interim events noted. Consults noted and appreciated. Gastroenterology and Endocrinology followup and intervention noted and appreciated. The patient remains in regular medical floor. He still complains of on and off abdominal pain requiring narcotic pain medication, which is controlling pain adequately. PHYSICAL EXAMINATION: GENERAL: The patient is in no acute distress. VITAL SIGNS: Stable. HEART: S1 and S2, normal and regular. LUNGS: Good bilateral air exchange. ABDOMEN: Benign on exam. No sign of acute abdomen. No guarding. No rigidity. No rebound. Bowel sounds are normal. EXTREMITIES: No edema. No calf swelling. No tenderness. No acute ischemia. CENTRAL NERVOUS SYSTEM: Exam is essentially unchanged. DIAGNOSTIC DATA: Available diagnostic data reviewed. IMPRESSION AND PLAN: Overall, the patient is hemodynamically stable, but pain is not much improved. The patient is for colonoscopy . Plan as ordered. Shyam Huertas MD
[2017-08-14] MEDS: Insulin Lispro (humaLOG) 100 Units/ml Inj SC SCH ×7 (09:06→22:45)
[2017-08-14] MEDS: MethylPREDNISolone 40 mg Vial IVP SCH (09:10)
[2017-08-14] MEDS ORDERED: Lactated Ringer's 1,000 ML IV ONE (11:42)
[2017-08-14] MEDS ORDERED: Propofol 10 mg/ml Inj (20 ML) ONE (11:51)
[2017-08-14] MEDS: Pantoprazole 40 mg EC Tab PO SCH (16:49)
--- NOTE | 2017-08-14 18:14 | PN ---
ENDOCRINOLOGY FOLLOWUP NOTE DATE: LOCATION: Room 654. SUBJECTIVE: This is a 37-year-old male with recent uncontrolled type 2 insulin-requiring diabetes now being followed closely for metabolic management. He presented here with acute exacerbation of ulcerative colitis and has been started on IV steroid therapy with supervening hyperglycemic accelerations as expected thereof. His IV steroids are being tapered down and currently on Solu-Medrol given as 20 every 12 hours as ordered. His latest chemistry showed a BUN of 27, sodium 136, potassium 5.0, chloride 94, CO2 of 30, glucose 243 and creatinine 1.0. His glucose levels have ranged from 133 to 224 mg/dL. So at this time we will modify and lower the prandial insulin with Humalog to be gait to be given as 20 units subcu t.i.d. before meals as ordered. We will titrate incrementally as indicated to optimize metabolic control. We will also continue the basal insulin given as Levemir at 80 units subcu at bedtime daily as given. We will continue the low-dose correction scale using Humalog insulin as ordered. We will obtain serial chemistries and supplement accordingly needed. We will follow. Margot Farnsworth MD
[2017-08-14] MEDS: Insulin Detemir 100 Units/ml Inj SC SCH (22:46)
[2017-08-15] MEDS: Sodium Chloride 0.9% 500 ML IV SCH ×3 (00:50→15:31)
[2017-08-15 06:36] LABS: HEMOGLOBIN 14.8 g/dL (12.0-18.0); MEAN CELL VOLUME 84.8 fl (80.0-94.0); MEAN CORPUSCULAR HEMOGLOBIN 29.3 pg (27.0-31.0); MEAN CORPUSCULAR HGB CONC 34.5 g/dL (33.0-37.0); RBC 5.06 Mil/uL (4.40-5.90); RED CELL DISTRIBUTION WIDTH 13.9 % (11.5-14.5); WHITE BLOOD COUNT 24.2 K/uL (4.8-10.8)
[2017-08-15] MEDS: Insulin Lispro (humaLOG) 100 Units/ml Inj SC SCH ×7 (06:50→21:45)
[2017-08-15 06:57] LABS: ALBUMIN 3.6 g/dL (3.5-5.0); ALT/SGPT 36 U/L (21-72); AST/SGOT 15 U/L (17-59); BLOOD UREA NITROGEN 32 mg/dl (9-20); CALCIUM 8.9 mg/dL (8.4-10.2); GFR AFRICAN-AMERICAN > 60; GFR NON-AFRICAN AMERICAN > 60
[2017-08-15] MEDS: Pantoprazole 40 mg EC Tab PO SCH (08:34)
[2017-08-15] MEDS ORDERED: Sodium Chloride 0.45% 1,000 ML IV SCH ×2 (09:30→10:15)
--- NOTE | 2017-08-15 10:09 | CP.PCM.PN ---
Subjective - Date & Time of Evaluation Date of Evaluation: 08/15/17 Time of Evaluation: 07:20 - Subjective Subjective: Patient evaluated with Dr Huertas this morning. Still c/o RUQ-R/Flank pain, intermittent, now patient states pain is worse while trying to urinate. Afebrile, denies vomiting, diarrhea, nausea, melena, hematuria or hematochezia. Objective - Vital Signs/Intake and Output Vital Signs (last 24 hours): Temp Pulse Resp BP Pulse Ox 97.8 F 87 20 153/92 H 98 08/15/17 07:56 08/15/17 08:34 08/15/17 07:56 08/15/17 08:34 08/15/17 07:56 - Medications Medications: Current Medications Amlodipine Besylate (Norvasc) 10 mg PO DAILY [facility] Last Admin: 08/15/17 08:34 Dose: 10 mg Clonidine HCl (Catapres) 0.2 mg PO Q6 PRN PRN Reason: BP > 160/90 Last Admin: 08/15/17 08:34 Dose: 0.2 mg Dextrose (Dextrose 50% Inj) 0 ml IVP STAT PRN; Protocol PRN Reason: Hypoglycemia Protocol Enoxaparin Sodium (Lovenox) 40 mg SC Q24H [facility] PRN Reason: Protocol Last Admin: 08/12/17 21:06 Dose: 40 mg Gabapentin (Neurontin) 600 mg PO TID [facility] Last Admin: 08/15/17 08:34 Dose: 600 mg Glucagon (Glucagen Diagnostic Kit) 0 mg IM STAT PRN; Protocol PRN Reason: Hypoglycemia Protocol Hydromorphone HCl (Dilaudid) 1 mg IVP Q4 PRN PRN Reason: Pain, severe (8-10) Last Admin: 08/15/17 08:31 Dose: 1 mg Sodium Chloride (Sodium Chloride 0.9%) 500 mls @ 100 mls/hr IV .Q5H [facility] Last Admin: 08/15/17 00:50 Dose: Not Given Sodium Chloride (Sodium Chloride 0.45%) 1,000 mls @ 125 mls/hr IV .Q8H [facility] Stop: 08/16/17 09:26 Insulin Detemir (Levemir) 80 units SC HS [facility] Last Admin: 08/14/17 22:46 Dose: 80 units Insulin Human Lispro (Humalog) 0 units SC ACHS [facility] PRN Reason: Protocol Last Admin: 08/15/17 06:50 Dose: 10 units Insulin Human Lispro (Humalog) 24 units SC AC [facility] Mesalamine (Delzicol) 800 mg PO TID [facility] Last Admin: 08/15/17 08:33 Dose: 800 mg Pantoprazole Sodium (Protonix Ec Tab) 40 mg PO DAILY [facility] Last Admin: 08/15/17 08:34 Dose: 40 mg Prednisone (Prednisone Tab) 10 mg PO BID [facility] Last Admin: 08/15/17 08:35 Dose: 10 mg Valsartan (Diovan) 320 mg PO DAILY [facility] Last Admin: 08/15/17 08:34 Dose: 320 mg - Labs Labs: 08/15/17 06:15 08/15/17 06:15 - Constitutional Appears: Non-toxic, In Acute Distress (Pain) - Eye Exam Eye Exam: EOMI, PERRL - ENT Exam ENT Exam: Mucous Membranes Moist - Respiratory Exam Respiratory Exam: Clear to Ausculation Bilateral, NORMAL BREATHING PATTERN. absent: Rales, Wheezes, Respiratory Distress - Cardiovascular Exam Cardiovascular Exam: REGULAR RHYTHM, +S1, +S2. absent: Gallop - GI/Abdominal Exam GI & Abdominal Exam: Soft, Tenderness (RUQ), Normal Bowel Sounds. absent: Guarding, Rebound - Extremities Exam Extremities Exam: Full ROM. absent: Calf Tenderness, Pedal Edema - Back Exam Back Exam: absent: CVA tenderness (L), CVA tenderness (R), muscle spasm, paraspinal tenderness - Neurological Exam Neurological Exam: Alert, Awake, Oriented x3 - Skin Skin Exam: Normal Color, Warm Assessment and Plan - Assessment and Plan (Free Text) Assessment: Colonoscopy results C/W chronic Crohn's disease Uncontrolled DM Hyperkalemia Still c/o pain GI consult appreciated IV fluids Endocrinology consult appreciated Complete Abd US stat(R/O Kidney stones/GB disease) C/W current med plan
--- NOTE | 2017-08-15 11:25 | US ---
HISTORY: RUQ/Flank pain COMPARISON: None. TECHNIQUE: Sonographic evaluation of the abdomen. FINDINGS: LIVER: Enlarged, measuring 19.8 cm. Increased echogenicity of the liver parenchyma. No mass. No intrahepatic bile duct dilatation. GALLBLADDER: Small 4-6 millimeter polyps. No gallstones. COMMON BILE DUCT: Measures 6 mm. No stones. No dilatation. PANCREAS: Unremarkable as visualized. No mass. No ductal dilatation. RIGHT KIDNEY: Measures 12.3 x 6.4 x 4.9cm. Normal echogenicity. No calculus, mass, or hydronephrosis. LEFT KIDNEY: Measures 14.3 x 5.9 x 7.6 nocm. Normal echogenicity. No calculus, mass, or hydronephrosis. SPLEEN: Normal in size and contour. No mass. AORTA: No aneurysmal dilatation. IVC: Unremarkable. OTHER FINDINGS: None. IMPRESSION: Hepatomegaly with steatosis. Small 6 millimeter gallbladder polyps.
[2017-08-15] MEDS ORDERED: Insulin Lispro (humaLOG) 100 Units/ml Inj SC SCH (16:30)
--- NOTE | 2017-08-15 18:39 | PN ---
ENDOCRINOLOGY FOLLOWUP NOTE DATE: LOCATION: In room 654. SUBJECTIVE: This is a 37-year-old male with recent admission for apparent excerebration of ulcerative colitis and given IV steroid therapy with supervening hyperglycemic accelerations as noted thereof. His glycemic level are still fluctuating and overnight the glucose values have ranged from 371 to 408 mg/dL. The latest glucose levels are now 154 at lunch time as noted. His latest chemistry showed a BUN of 32, sodium 135, potassium 5.4, chloride 93, CO2 of 29, glucose 408 and creatinine 1.1. So at this time, we will modify once again his basal and bolus insulin regimen and since he has been switched over to oral steroid therapy then we will lower his Humalog to 14 units subcutaneous t.i.d. before meals to start at dinnertime today as ordered. We will also lower the basal insulin to Levemir given as 60 units subcutaneous at bedtime daily as given. We will continue the IV hydration as ordered to a higher infusion rate at 125 mL per hours as given. We will obtain serial chemistries and supplement accordingly as needed. We will follow. Margot Farnsworth MD
[2017-08-15] MEDS: Enoxaparin 40 mg Syringe SC SCH (21:43)
[2017-08-15] MEDS ORDERED: Insulin Detemir 100 Units/ml Inj SC SCH (22:00)
[2017-08-16 04:12] LABS: SQUAMOUS EPITHIAL 2 /hpf (0-5); URINE BACTERIA RARE (<OCC); URINE BILIRUBIN NEGATIVE (NEGATIVE); URINE BLOOD SMALL (NEGATIVE); URINE CLARITY SLIGHTY-CLOUDY (Clear); URINE COLOR YELLOW (YELLOW); URINE GLUCOSE (UA) >=500 mg/dL (Normal); URINE LEUKOCYTE ESTERASE NEG Leu/uL (Negative); URINE NITRATE NEGATIVE (NEGATIVE); URINE PROTEIN 30 mg/dL (NEGATIVE); URINE UROBILINOGEN 0.2-1.0 mg/dL (0.2-1.0)
[2017-08-16] MEDS: Insulin Lispro (humaLOG) 100 Units/ml Inj SC SCH ×7 (07:00→21:30)
[2017-08-16 08:03] LABS: HEMOGLOBIN 13.7 g/dL (12.0-18.0); MEAN CELL VOLUME 86.4 fl (80.0-94.0); MEAN CORPUSCULAR HEMOGLOBIN 29.1 pg (27.0-31.0); MEAN CORPUSCULAR HGB CONC 33.7 g/dL (33.0-37.0); RBC 4.72 Mil/uL (4.40-5.90); RED CELL DISTRIBUTION WIDTH 13.6 % (11.5-14.5); WHITE BLOOD COUNT 19.1 K/uL (4.8-10.8)
[2017-08-16 08:17] LABS: BLOOD UREA NITROGEN 31 mg/dl (9-20); GFR AFRICAN-AMERICAN > 60; GFR NON-AFRICAN AMERICAN > 60
[2017-08-16] MEDS ORDERED: Sod Polystyrene Sulf 15 gm/60 ml Susp PO ONE (09:17)
[2017-08-16] MEDS: Pantoprazole 40 mg EC Tab PO SCH (09:19)
[2017-08-16] MEDS ORDERED: Lactated Ringer's 500 ML IV SCH (09:30)
--- NOTE | 2017-08-16 09:46 | PN ---
DATE: 08/16/2017 SUBJECTIVE: The patient is seen and examined. Interim events noted. Consults noted and appreciated. The patient feels little better. Pain is improved, but still present. pain. No chest pain. No shortness of breath. Abdominal pain is a little bit getting better. No diarrhea, vomiting or constipation. PHYSICAL EXAMINATION: GENERAL: The patient is in no acute distress. VITAL SIGNS: Stable. HEART: S1 and S2, normal and regular. LUNGS: Good bilateral air entry. ABDOMEN: Soft and nontender. No organomegaly. No fluids. Bowel sounds are present and normal. No sign of acute abdomen. No guarding. No rigidity. No rebound. EXTREMITIES: No edema. No calf swelling. No tenderness. No acute ischemia. CENTRAL NERVOUS SYSTEM: Exam is essentially unchanged. DIAGNOSTIC DATA: Available diagnostic data reviewed. Abdominal sonogram is unremarkable. ASSESSMENT AND PLAN: Overall, the patient is clinically stable and improved. Plan as ordered. Shyam Huertas MD
[2017-08-16] MEDS: Lactated Ringer's 1,000 ML IV SCH ×2 (11:00→18:37)
--- NOTE | 2017-08-16 11:34 | CARD ---
APPROVED REPORT EKG Measurement Heart [id number] <Conclusion> Sinus rhythm with premature atrial complexes Otherwise normal ECG
[2017-08-16 14:38] LABS: BLOOD UREA NITROGEN 30 mg/dl (9-20); CALCIUM 8.7 mg/dL (8.4-10.2); GFR AFRICAN-AMERICAN > 60; GFR NON-AFRICAN AMERICAN > 60
--- NOTE | 2017-08-16 18:08 | PN ---
ENDOCRINOLOGY FOLLOWUP NOTE DATE: LOCATION: Room 654. SUBJECTIVE: This is a 37-year-old male with recent uncontrolled type 2 insulin-requiring diabetes now being followed closely for metabolic management. His glycemic levels are extremely fluctuating and overnight developed hyperglycemic accelerations as noted thereof. He has been switched over now to oral steroids following the initial high dose IV steroids for management of a recent exacerbation of Crohn's disease as noted. His glucose values are ranging today from 413-463 mg/dL. The latest chemistry showed a BUN of 31, sodium 134, potassium 5.9, chloride 94, CO2 of 31, glucose 553 and creatinine 1.1. So at this time we will modify once again his basal insulin and increase the Levemir to 70 units subcu at bedtime daily to start tonight. We will also increase the Humalog to 24 units subcu t.i.d. before meals to start today as ordered. We will continue the low-dose correction scale using Humalog insulin as given. We will obtain serial chemistries and supplement accordingly needed. We will follow. Margot Farnsworth MD
[2017-08-16] MEDS: Enoxaparin 40 mg Syringe SC SCH (21:31)
[2017-08-16] MEDS ORDERED: Insulin Detemir 100 Units/ml Inj SC SCH (22:00)
[2017-08-17] MEDS: Lactated Ringer's 1,000 ML IV SCH ×2 (02:37→13:01)
[2017-08-17] MEDS: Insulin Lispro (humaLOG) 100 Units/ml Inj SC SCH ×6 (07:50→17:15)
[2017-08-17 07:58] VITALS: RESP 20
[2017-08-17 08:55] LABS: HEMOGLOBIN 14.4 g/dL (12.0-18.0); MEAN CELL VOLUME 85.4 fl (80.0-94.0); MEAN CORPUSCULAR HEMOGLOBIN 28.5 pg (27.0-31.0); MEAN CORPUSCULAR HGB CONC 33.4 g/dL (33.0-37.0); RBC 5.07 Mil/uL (4.40-5.90); RED CELL DISTRIBUTION WIDTH 13.7 % (11.5-14.5); WHITE BLOOD COUNT 20.2 K/uL (4.8-10.8)
[2017-08-17] MEDS: Pantoprazole 40 mg EC Tab PO SCH (08:55)
[2017-08-17 09:06] LABS: BLOOD UREA NITROGEN 23 mg/dl (9-20); CALCIUM 8.9 mg/dL (8.4-10.2); GFR AFRICAN-AMERICAN > 60; GFR NON-AFRICAN AMERICAN > 60
--- NOTE | 2017-08-17 10:23 | PN ---
DATE: 08/17/2017 SUBJECTIVE: The patient is seen and examined. Interim events noted. Consults noted and appreciated. The patient remains on regular medical floor. He is much better. Abdominal pain improved, moving bowels, and moving bladder. No chest pain or shortness of breath. PHYSICAL EXAMINATION: GENERAL: The patient is in no acute distress. VITAL SIGNS: Stable. HEART: S1 and S2, normal and regular. LUNGS: Good bilateral air exchange. ABDOMEN: Soft and nontender. Does not reveal any sign of acute abdomen. No guarding. No rigidity. No rebound. EXTREMITIES: No edema. No calf swelling. No tenderness. No acute ischemia. CENTRAL NERVOUS SYSTEM: Exam is essentially unchanged. DIAGNOSTIC DATA: Available diagnostic data reviewed. ASSESSMENT AND PLAN: Overall, the patient general's medical condition is stable. The patient is for possible discharge today. The patient will be followed up by family care physician and technical assistance consultant. Case and plan discussed with the patient. Shyam Huertas MD
--- NOTE | 2017-08-17 14:59 | CP.PCM.PCO ---
Assessment/Plan - Assessment/Plan Assessment (Free Text): Pt stable, blood sugars improved. Discussed with Dr. Farnsworth, pt can be d/c'd home, pt to resume using his insulin pump. Pt educated on diet modification and incorporation of exercise into his daily routine for better glycemic management. Pt verbalized understanding and states he will try to comply with a diabetic diet. States he needs prescription for meds. All Rx given as per med rec, states he has insulin and BP meds at home. Pt looked up in the [facility] and has Oxycodone 30mg tab, 60 pills, that were filled on 08/02/17 for a 30 day supply. Pt to resume same pain meds at home. Pt cleared for d/c home by Dr. Chu on Prednisone tapering dose as per med rec. Pt seen and cleared for d/ c home by Dr. Huertas. Pt to f/u with his PMD next week to monitor labs and pt states he has an appt with his primary care provider on 08/29/17. Copies of pt's labs including hgb A1C and copy of the colonoscopy pathology report given to pt who wants to take it to his PMD and GI doctor.
[2017-08-17 15:59] VITALS: BP 110/62; PULSE 93; TEMP 97.7; O2SAT 98
--- NOTE | 2017-08-18 03:19 | PN ---
ENDOCRINOLOGY FOLLOWUP NOTE DATE: LOCATION: Room 654. SUBJECTIVE: This is a 37-year-old male with recent uncontrolled type 2 insulin-requiring diabetes now being followed closely for metabolic management. His glycemic values are fluctuating today as noted with parent dietary indiscretion as per the nursing staff and preferential food intake from home. His glucose values have ranged from 325 to 342 mg/dL. His latest chemistry showed a BUN of 23, sodium 139, potassium 4.2, chloride 97, CO2 of 29, glucose 310 and creatinine 0.9. The patient also has been noted not only by the medical staff, but specially by the nursing staff to have frequent complaints of the vague diffuse abdominal pain with compulsive need for narcotic analgesics for pain relief and actually has been requesting his Dilaudid medications every 4 hours [id number] as noted. At this time he is reluctant to go home because of his apparent diffuse abdominal pain. There is a possibility of secondary pain in terms of his dependence on narcotic analgesics for pain relief and almost a compulsive request for narcotic analgesics every 4 hours on the dock as noted. Further GI workup can be undertaken as an outpatient as noted for followup of ulcerative colitis. We will continue the same modified basal and bolus insulin regimen as given with Humalog given as 24 units subcu t.i.d. before meals and Levemir given as 70 units subcu at bedtime daily as given as discussed with the patient lengthily at bedside as finally I got him awake today since the previous obesity was actually knocked out and in deep REM sleep from the narcotics being given and so today was able to discuss with the patient regarding the need to resume his [employer] insulin pump upon discharge home with higher basal and bolus insulin doses because of the recent steroids given with supervening hyperglycemic accelerations as expected thereof. He will follow with his medical doctor and [facility] for outpatient diabetic management. Margot Farnsworth MD
== END 2017-08-17 18:20 | disposition home or self-care (01) | DRG 386 ==
LOC: H.ER 17:22 → H.ERHOLD 22:38 → H.MEDSURG1 08-08 05:19
PROVIDERS: ADMIT Internal Medicine; ATTEND Internal Medicine
PROC: 0DBB8ZX Excision of Ileum, Via Natural or Artificial Opening Endoscopic, Diagnostic (ICD-10-PCS; 2017-08-14)
PROC: 0DBK8ZX Excision of Ascending Colon, Via Natural or Artificial Opening Endoscopic, Diagnostic (ICD-10-PCS; principal; 2017-08-14 12:30)
DX: K51.90 Ulcerative colitis, unspecified, without complications (principal); E87.2 Acidosis; E11.319 Type 2 diabetes mellitus with unspecified diabetic retinopathy without macular edema; E11.42 Type 2 diabetes mellitus with diabetic polyneuropathy; E86.0 Dehydration; G89.29 Other chronic pain; Z91.14 Patient's other noncompliance with medication regimen; Z91.19 Patient's noncompliance with other medical treatment and regimen; Z91.11 Patient's noncompliance with dietary regimen; E11.65 Type 2 diabetes mellitus with hyperglycemia; Z87.891 Personal history of nicotine dependence; K51.40 Inflammatory polyps of colon without complications; Z79.4 Long term (current) use of insulin; K64.8 Other hemorrhoids; E87.5 Hyperkalemia; Z88.1 Allergy status to other antibiotic agents

== ENCOUNTER 2017-12-12 20:38 | Inpatient (IN) | payer BC ==
[2017-12-12] MEDS ORDERED: Promethazine/Cod 6.25mg-10mg/5ml Syr UD PO STA (21:02)
--- NOTE | 2017-12-12 21:22 | ED PDOC ---
History of Present Illness History of Present Illness: 37 year old male with a history of ulcerative colitis, Crohn's, and type I diabetes presents to the ED with complaints of a headache associated with body aches, generalized weakness, decreased appetite, and a dry cough onset five days. Denies fever, chills, vomiting, and diarrhea and reports taking over the counter medications without relief of symptoms. Additionally, patient states he noticed some periumbilical drainage that began today. Also of note, patient says his blood sugar has been high, but that's not unusual for him due to poor control. PMD: none provided HPI: Influenza Time Seen by Provider: 12/12/17 20:55 Chief Complaint: Cough, Cold, Congestion Chief Complaint (Provider): Headache, Body Aches History Per: Patient Exam Limitations: no limitations Onset/Duration Of Symptoms: Days (x5) Past Medical History Reviewed: Historical Data, Nursing Documentation, Vital Signs Vital Signs: Last Vital Signs Temp 97.6 F 12/12/17 20:50 Pulse 103 H 12/12/17 20:50 Resp 20 12/12/17 20:50 BP 138/90 12/12/17 20:50 Pulse Ox 98 12/12/17 20:50 - Medical History PMH: Asthma, Crohn's Disease, Diabetes (type 1), HIV, HTN Denies: Chronic Kidney Disease Other PMH: Ulcerative colitis - Surgical History Surgical History: No Surg Hx - Family History Family History: States: Unknown Family Hx - Social History Current smoker - smoking cessation education provided: No Alcohol: None Drugs: Denies - Immunization History Hx Tetanus Toxoid Vaccination: No Hx Influenza Vaccination: No Hx Pneumococcal Vaccination: No - Home Medications Home Medications: Ambulatory Orders Medication Instructions Recorded Insulin Lispro [humALOG] 10 units SC PRN PRN 06/30/17 Valsartan 320 mg PO DAILY 08/08/17 Gabapentin [Neurontin] 600 mg PO TID #30 tab 08/17/17 predniSONE [predniSONE Tab] 10 mg PO DAILY #21 tab 08/17/17 Mesalamine [Asacol HD 800mg] 1.2 gm PO BID 12/13/17 - Allergies Allergies/Adverse Reactions: Allergies Allergy/AdvReac Type Severity Reaction Status Date / Time clarithromycin [From Biaxin] Allergy RASH Verified 12/12/17 20:50 Review of Systems ROS Statement: Except As Marked, All Systems Reviewed And Found Negative Constitutional: Positive for: Weakness (generalized), Other (body aches). Negative for: Fever, Chills Respiratory: Positive for: Cough (dry) Gastrointestinal: Positive for: Other (decreased appetite). Negative for: Vomiting, Diarrhea Skin: Positive for: Other (periumbilical drainage) Neurological: Positive for: Headache Physical Exam - Reviewed Nursing Documentation Reviewed: Yes Vital Signs Reviewed: Yes - Physical Exam Appears: Positive for: Uncomfortable Head Exam: Positive for: ATRAUMATIC, NORMOCEPHALIC Skin: Positive for: Normal Color, Warm, Dry Eye Exam: Positive for: Normal appearance ENT: Positive for: Other (mucous membranes tacky) Neck: Positive for: Normal, Painless ROM, Supple Cardiovascular/Chest: Positive for: Tachycardia (at 103) Respiratory: Positive for: Normal Breath Sounds. Negative for: Accessory Muscle Use, Respiratory Distress Gastrointestinal/Abdominal: Positive for: Normal Exam, Soft, Other (Scant purulent discharge from periumbilical area with no surrounding erythema). Negative for: Tenderness Back: Positive for: Normal Inspection. Negative for: L CVA Tenderness, R CVA Tenderness, Vertebral Tenderness Extremity: Positive for: Normal ROM. Negative for: Pedal Edema, Calf Tenderness Neurologic/Psych: Positive for: Alert, Oriented (x3). Negative for: Motor/ Sensory Deficits Medical Decision Making Medical Decision Making: Initial Impression: 37 year old male with diffuse myalgias, headache, diabetes, autoimmune disease Time: 21:02 Initial Plan: --ABG Shock Panel --Head CT w/o contrast --EKG --CMP --Creatine phosphokinase --Urine dipstick --CBC with differential --ESR --PT / PTT --CXR --Phenergan / Codeine oral syrup 10 ml PO --Toradol 15 mg IV --Blood culture --Glucose accucheck --Influenza A B --Urinalysis 22:[address] FINDINGS: Brain: See below. Ventricles: Ventricles are normal in size and configuration. There is no midline shift. There are no intra-axial or extra-axial mass lesions or areas of hemorrhage. There are no abnormal fluid collections. Martinez-white differentiation is maintained. Bones: Cranial vault is intact. Soft tissues: unremarkable Sinuses: There is mucoperiosteal thickening in the sinuses. There is a left medial antrectomy defect. Ears and mastoids: Middle ears and mastoids are unremarkable Orbits: Orbital contents are unremarkable. IMPRESSION: Sinus disease, no acute intracranial abnormality 2348 CT A/P FINDINGS: Lower thorax: Heart size is normal. There is distal esophageal wall thickening. There is scarring at the lung bases. ABDOMEN: Liver: The liver is enlarged. Gallbladder and bile ducts: unremarkable Pancreas: Pancreas is mildly atrophic. Spleen: Spleen is unremarkable. There is an accessory spleen in the left upper quadrant. Adrenals: unremarkable Kidneys and ureters: unremarkable Stomach and bowel: Stomach is incompletely distended. Rotation is normal. There is mild duodenal and proximal jejunal fold prominence. There is mild gaseous distention of mid small bowel loops. There is distal and terminal ileal wall thickening. Appendix is unremarkable. There is ascending and transverse colon wall thickening. PELVIS: Appendix: See stomach and bowel Bladder: unremarkable Reproductive: Seminal vesicles and prostate are unremarkable. There are calcifications in the vas deferens. ABDOMEN and PELVIS: Intraperitoneal space: There is no free air or free fluid. Bones/joints: There are degenerative changes in the osseus structures. Soft tissues: There is gynecomastia on the right. There is a fat containing left inguinal hernia. Vasculature: There are vascular calcifications. Lymph nodes: There is shotty mesenteric adenopathy. IMPRESSION: Enterocolitis consistent with history of Crohn's disease; no CT findings of pancreatitis Patient reports improvement in symptoms, however extensive past medical history , leukocytosis, and CT HEAD findings indicate acute sinusitis. Patient will be admitted for acute sinusitis, hyperglycemia, and leukocytosis - INPATIENT MED/ SURG. Obtained surgical consult for umbilical drainage. Discussed case with Dr. Bonilla and certified surgical tech/first assistant Dr. George. Scribe Attestation: Documented by María Roca, acting as a scribe for Ronnie Ochoa MD. Provider Scribe Attestation: All medical entries made by the Scribe were at my direction and personally dictated by me. I have reviewed the chart and agree that the record accurately reflects my personal performance of the history, physical exam, medical decision making, and the department course for this patient. I have also personally directed, reviewed, and agree with the discharge instructions and disposition. - Laboratory Results Result Diagrams: 12/12/17 21:37 12/12/17 21:37 - ECG O2 Sat by Pulse Oximetry: 98 (RA) Pulse Ox Interpretation: Normal Disposition - Clinical Impression Clinical Impression: Sinusitis, Hyperglycemia, Leukocytosis - Disposition Disposition Time: 23:22 Condition: FAIR - Pt Status Changed To: Hospital Disposition Of: Inpatient (MED/SURG) - Admit Certification Admit to Inpatient:: After my assessment, the patient will require hospitalization for at least two midnights. This is because of the severity of symptoms shown, intensity of services needed, and/or the medical risk in this patient being treated as an outpatient. - POA Present On Arrival: Poor Glycemic Control
[2017-12-12 21:47] LABS: BASO # 0.2 K/uL (0.0-0.2); BASO % 0.8 % (0.0-2.0); EOS # 0.5 K/uL (0.0-0.7); EOS % 2.2 % (0.0-4.0); HEMOGLOBIN 13.9 g/dL (12.0-18.0); LYMPH # 3.3 K/uL (1.0-4.3); LYMPH % 13.9 % (20.0-40.0); MEAN CORPUSCULAR HEMOGLOBIN 28.7 pg (27.0-31.0); MEAN CORPUSCULAR HGB CONC 34.1 g/dL (33.0-37.0); MEAN PLATELET VOLUME 7.4 fl (7.2-11.7); MONO # 2.1 K/uL (0.0-0.8); MONO % 8.7 % (0.0-10.0); NEUT # 17.8 K/uL (1.8-7.0); NEUT % 74.4 % (50.0-75.0); RBC 4.85 Mil/uL (4.40-5.90); RED CELL DISTRIBUTION WIDTH 12.6 % (11.5-14.5); WHITE BLOOD COUNT 23.8 K/uL (4.8-10.8)
[2017-12-12 21:58] LABS: ALBUMIN 3.9 g/dL (3.5-5.0); ALT/SGPT 19 U/L (21-72); AST/SGOT 25 U/L (17-59); BLOOD UREA NITROGEN 19 mg/dl (9-20); CALCIUM 8.7 mg/dL (8.4-10.2); GFR AFRICAN-AMERICAN > 60; GFR NON-AFRICAN AMERICAN > 60
[2017-12-12 22:02] LABS: INR 1.1 (0.9-1.2); PARTIAL THROMBOPLASTIN TIME 29.5 Seconds (25.6-37.1); PROTHROMBIN TIME 12.7 Seconds (9.8-13.1)
[2017-12-12] MEDS ORDERED: Sodium Chloride 0.9% 1,000 ML IV STA ×2 (22:08→23:22)
[2017-12-12] MEDS ORDERED: Morphine 4 MG/ML VIAL IVP ONE (22:11)
[2017-12-12] MEDS ORDERED: Morphine 4 MG/ML VIAL ONE (22:17)
--- NOTE | 2017-12-12 22:29 | CT ---
EXAM: CT Head Without Intravenous Contrast EXAM DATE/TIME: 12/12/2017 9:16 PM CLINICAL HISTORY: 37 years old, male; Pain and signs and symptoms; Other: General body pain, weakness; Headache; Headache not specified TECHNIQUE: Axial computed tomography images of the head/brain without intravenous contrast. All CT scans at this facility use at least one of these dose optimization techniques: automated exposure control; mA and/or kV adjustment per patient size (includes targeted exams where dose is matched to clinical indication); or iterative reconstruction. Coronal and sagittal reformatted images were created and reviewed. COMPARISON: There are no prior studies for comparison. FINDINGS: Brain: See below. Ventricles: Ventricles are normal in size and configuration. There is no midline shift. There are no intra-axial or extra-axial mass lesions or areas of hemorrhage. There are no abnormal fluid collections. Martinez-white differentiation is maintained. Bones: Cranial vault is intact. Soft tissues: unremarkable Sinuses: There is mucoperiosteal thickening in the sinuses. There is a left medial antrectomy defect. Ears and mastoids: Middle ears and mastoids are unremarkable Orbits: Orbital contents are unremarkable. IMPRESSION: Sinus disease, no acute intracranial abnormality
[2017-12-12] MEDS ORDERED: Iohexol 300 100 ML IJ ONE (23:07)
[2017-12-12] MEDS ORDERED: Sodium Chloride 0.9% 50 ML IV ONE (23:07)
[2017-12-12] MEDS ORDERED: Insulin Regular 100 units/ml IV ONE (23:22)
[2017-12-12] MEDS ORDERED: cefTRIAXone (Rocephin) 1 gm Inj ONE (23:22)
[2017-12-12] MEDS ORDERED: Insulin Regular 100 units/ml ONE (23:32)
--- NOTE | 2017-12-12 23:48 | CT ---
EXAM: CT Abdomen and Pelvis With Intravenous Contrast EXAM DATE/TIME: 12/12/2017 10:48 PM CLINICAL HISTORY: 37 years old, male; Pain; Abdominal pain; Epigastric; Additional info: Crohn's disease Pancreatitis TECHNIQUE: Axial computed tomography images of the abdomen and pelvis with intravenous contrast. All CT scans at this facility use at least one of these dose optimization techniques: automated exposure control; mA and/or kV adjustment per patient size (includes targeted exams where dose is matched to clinical indication); or iterative reconstruction. Coronal and sagittal reformatted images were created and reviewed. COMPARISON: CT - ABD PELVIS W/O PO OR IV CONT 2017-08-07 19:54 FINDINGS: Lower thorax: Heart size is normal. There is distal esophageal wall thickening. There is scarring at the lung bases. ABDOMEN: Liver: The liver is enlarged. Gallbladder and bile ducts: unremarkable Pancreas: Pancreas is mildly atrophic. Spleen: Spleen is unremarkable. There is an accessory spleen in the left upper quadrant. Adrenals: unremarkable Kidneys and ureters: unremarkable Stomach and bowel: Stomach is incompletely distended. Rotation is normal. There is mild duodenal and proximal jejunal fold prominence. There is mild gaseous distention of mid small bowel loops. There is distal and terminal ileal wall thickening. Appendix is unremarkable. There is ascending and transverse colon wall thickening. PELVIS: Appendix: See stomach and bowel Bladder: unremarkable Reproductive: Seminal vesicles and prostate are unremarkable. There are calcifications in the vas deferens. ABDOMEN and PELVIS: Intraperitoneal space: There is no free air or free fluid. Bones/joints: There are degenerative changes in the osseus structures. Soft tissues: There is gynecomastia on the right. There is a fat containing left inguinal hernia. Vasculature: There are vascular calcifications. Lymph nodes: There is shotty mesenteric adenopathy. IMPRESSION: Enterocolitis consistent with history of Crohn's disease; no CT findings of pancreatitis
--- NOTE | 2017-12-13 00:30 | CP.PCM.CON ---
History of Present Illness - History of Present Illness History of Present Illness: Surgery Consult note- Dr. Clement reason for consult: umbilical drainage 37M w/ pmhx significant for UC and Crohns, type I diabetes, admits to being non- compliant with his medications presents to [facility] ED with headaches, generalized body weakness, decreased appetite, dry cough that started 5 days ago. Patient admits to have taken 5mg of prednisone on Monday, Monday, and Monday in hopes to help his symptoms. During ED work up patient found to have glucose levels > 300 which patient states is not normal. Patient incidentally noticed yellow and serous drainage from umbilicus that started today. Patient had similar discharge > 5 years ago and resolved spontaneously. denies malodrous discharge. Of note: patient was admitted to [facility] less than 4 weeks ago for IBD flare + subjective fevers, chills, nausea, non-bloody bilious emesis Denies current: chills, vomiting, diarrhea, changes in bladder function, numbness/tingling in extremities PMH: stated above PSH: denies ALL: Clarithromycin SocialHx: quit tobacco use 4+ years ago. Lives at home with supportive family members FH: non-contributory 12pt ROS conducted, negative otherwise noted above Review of Systems - Review of Systems All systems: reviewed and no additional remarkable complaints except - Constitutional Constitutional: As Per HPI Past Patient History - Past Medical History & Family History Past Medical History?: Yes - Past Social History Alcohol: None Drugs: Denies - CARDIAC Hx Hypertension: Yes - PULMONARY Hx Asthma: Yes - NEUROLOGICAL Hx Neurological Disorder: No - HEENT Hx HEENT Problems: No - RENAL Hx Chronic Kidney Disease: No - ENDOCRINE/METABOLIC Hx Endocrine Disorders: Yes Hx Diabetes Mellitus Type 2: Yes Other/Comment: diabetic neuropathy - HEMATOLOGICAL/ONCOLOGICAL Hx Human Immunodeficiency Virus (HIV): Yes - INTEGUMENTARY Hx Dermatological Problems: No - MUSCULOSKELETAL/RHEUMATOLOGICAL Hx Musculoskeletal Disorders: Yes Hx Falls: Yes - GASTROINTESTINAL Hx Crohn's Disease: Yes - GENITOURINARY/GYNECOLOGICAL Hx Genitourinary Disorders: No - PSYCHIATRIC Hx Psychophysiologic Disorder: Yes Hx Substance Use: Yes (in an [facility] program) Other/Comment: in a [facility] program - SURGICAL HISTORY Hx Surgeries: Yes Other/Comment: colonoscopy - ANESTHESIA Hx Anesthesia: Yes Hx Anesthesia Reactions: No Hx Malignant Hyperthermia: No Meds Allergies/Adverse Reactions: Allergies Allergy/AdvReac Type Severity Reaction Status Date / Time clarithromycin [From Biaxin] Allergy RASH Verified 12/12/17 20:50 Physical Exam - Constitutional Appears: Non-toxic, No Acute Distress - Head Exam Head Exam: ATRAUMATIC - Eye Exam Eye Exam: EOMI. absent: Scleral icterus - ENT Exam ENT Exam: Mucous Membranes Moist - Respiratory Exam Respiratory Exam: NORMAL BREATHING PATTERN. absent: Accessory Muscle Use, Respiratory Distress - Cardiovascular Exam Cardiovascular Exam: +S1, +S2. absent: Bradycardia, Tachycardia - GI/Abdominal Exam GI & Abdominal Exam: Guarding (voluntary gaurding), Soft, Tenderness (diffusely tender to palpation. ). absent: Distended, Firm, Hernia, Rigid Additional comments: umbilicus, no active drainage cotton tipped applicater used to explore umbilicus; serous fluid, no violation of deep fascia. no signs of feculent discharge - Extremities Exam Extremities exam: Negative for: calf tenderness Additional comments: Left great toe discolored at the nail base - Neurological Exam Neurological exam: Alert, Oriented x3 - Psychiatric Exam Psychiatric exam: Normal Affect - Skin Skin Exam: Intact, Warm Results - Vital Signs Recent Vital Signs: Last Vital Signs Temp 97.6 F 12/12/17 20:50 Pulse 103 H 12/12/17 20:50 Resp 20 12/12/17 20:50 BP 138/90 12/12/17 20:50 Pulse Ox 98 12/13/17 00:19 - Labs Result Diagrams: 12/12/17 21:37 12/12/17 21:37 Labs: Laboratory Results - last 24 hr 12/12/17 12/12/17 12/12/17 21:37 21:37 21:37 WBC 23.8 H RBC 4.85 Hgb 13.9 Hct 40.7 MCV 84.0 MCH 28.7 MCHC 34.1 RDW 12.6 Plt Count 661 H MPV 7.4 Neut % (Auto) 74.4 Lymph % (Auto) 13.9 L Bladen % (Auto) 8.7 Eos % (Auto) 2.2 Baso % (Auto) 0.8 Neut # (Auto) 17.8 H Lymph # (Auto) 3.3 Bladen # (Auto) 2.1 H Eos # (Auto) 0.5 Baso # (Auto) 0.2 ESR 99 H PT 12.7 INR 1.1 APTT 29.5 Sodium 136 Potassium 4.4 Chloride 100 Carbon Dioxide 26 Anion Gap 14 BUN 19 Creatinine 1.0 Est GFR ( Amer) > 60 Est GFR (Non-Af Amer) > 60 POC Glucose (mg/dL) Random Glucose 386 H Lactic Acid Calcium 8.7 Total Bilirubin 0.7 AST 25 ALT 19 L D Alkaline Phosphatase 83 Total Creatine Kinase 102 Total Protein 7.7 Albumin 3.9 Globulin 3.9 Albumin/Globulin Ratio 1.0 Influenza Typ A,B (EIA) 12/12/17 12/12/17 12/12/17 21:37 21:44 22:06 WBC RBC Hgb Hct MCV MCH MCHC RDW Plt Count MPV Neut % (Auto) Lymph % (Auto) Bladen % (Auto) Eos % (Auto) Baso % (Auto) Neut # (Auto) Lymph # (Auto) Bladen # (Auto) Eos # (Auto) Baso # (Auto) ESR PT INR APTT Sodium Potassium Chloride Carbon Dioxide Anion Gap BUN Creatinine Est GFR ( Amer) Est GFR (Non-Af Amer) POC Glucose (mg/dL) 310 H Random Glucose Lactic Acid 1.5 Calcium Total Bilirubin AST ALT Alkaline Phosphatase Total Creatine Kinase Total Protein Albumin Globulin Albumin/Globulin Ratio Influenza Typ A,B (EIA) Negative for flu a/b 12/12/17 23:33 WBC RBC Hgb Hct MCV MCH MCHC RDW Plt Count MPV Neut % (Auto) Lymph % (Auto) Bladen % (Auto) Eos % (Auto) Baso % (Auto) Neut # (Auto) Lymph # (Auto) Bladen # (Auto) Eos # (Auto) Baso # (Auto) ESR PT INR APTT Sodium Potassium Chloride Carbon Dioxide Anion Gap BUN Creatinine Est GFR ( Amer) Est GFR (Non-Af Amer) POC Glucose (mg/dL) 319 H Random Glucose Lactic Acid Calcium Total Bilirubin AST ALT Alkaline Phosphatase Total Creatine Kinase Total Protein Albumin Globulin Albumin/Globulin Ratio Influenza Typ A,B (EIA) Assessment & Plan - Assessment and Plan (Free Text) Assessment: 37M w/ inflammatory bowel disease and DM non compliant w/ medications, with mild serous drainage from umbilicus, admitted for sinusitis, glucose control. CT scan w/ IV contrast only: enterocolitis, no signs of fistula or pancreatitis Plan: - IVAbx & steroids - IVF - pain control and anti-emetic PRN - culture of drainage from umbilicus taken at bedside during examination; f/u cultures - avoid traumatizing umbilicus and site of drainage - keep dry dressing on top - no acute surgical intervention at this time during IBD flare - will follow - d/w Dr. Clement surgical attending PGY1
[2017-12-13] MEDS ORDERED: Labetalol 5 mg/ml Inj 20ML IVP STA (04:16)
[2017-12-13] MEDS: Sodium Chloride 0.9% 1,000 ML IV SCH ×2 (05:17→15:12)
[2017-12-13] MEDS ORDERED: Promethazine/Cod 6.25mg-10mg/5ml Syr UD PO PRN (06:32)
[2017-12-13] MEDS: Insulin Regular 100 units/ml SC SCH ×4 (07:12→22:00)
--- NOTE | 2017-12-13 08:08 | CARD ---
APPROVED REPORT EKG Measurement Heart [id number] <Conclusion> Normal sinus rhythm Possible Left atrial enlargement Borderline ECG
[2017-12-13] MEDS ORDERED: VALSARTAN 320 MG PO SCH (09:00)
[2017-12-13] MEDS ORDERED: levoFLOXacin 500 mg in D5W 500 MG/100 ML BAG IVPB SCH (09:00)
--- NOTE | 2017-12-13 10:01 | RAD ---
HISTORY: Cough COMPARISON: 08/07/2017 FINDINGS: LUNGS: No active pulmonary disease. PLEURA: No significant pleural effusion identified, no pneumothorax apparent. CARDIOVASCULAR: Normal. OSSEOUS STRUCTURES: No significant abnormalities. VISUALIZED UPPER ABDOMEN: Normal. OTHER FINDINGS: None. IMPRESSION: No active disease.
[2017-12-13] MEDS: HYDROmorphone 1 mg/ml ISec IVP PRN ×4 (10:19→23:30)
[2017-12-13] MEDS: Piperacillin/Tazobact 3.375 GM in Sodium Chloride 0.9% 100 ML IVPB SCH ×2 (13:26→18:22)
[2017-12-13] MEDS ORDERED: HYDROmorphone 1 mg/ml ISec IVP STA (15:20)
--- NOTE | 2017-12-13 15:45 | CP.PCM.PN ---
Subjective - Date & Time of Evaluation Date of Evaluation: 12/13/17 Time of Evaluation: 15:35 - Subjective Subjective: I D NOTE PATIENT EXAMINED ,CHART REVIEWED SEVERE SINUSITUS,HAS SIGNIFICANT PAIN WILL GIVE STAT DOSE OF DILAUDID 0.5 MG DISCUSSED C STARTED ON VANCOMYCIN AND ZOSYN IF NO IMPROVENT TOMORROW ,WILL CONSISER CHANGE TO UNASYN. Objective - Vital Signs/Intake and Output Vital Signs (last 24 hours): Temp Pulse Resp BP Pulse Ox 98.1 F 94 H 20 135/76 97 12/13/17 08:07 12/13/17 08:07 12/13/17 08:07 12/13/17 08:07 12/13/17 08:07 - Medications Medications: Current Medications Hydromorphone HCl (Dilaudid) 1 mg IVP Q4 PRN PRN Reason: Pain, severe (8-10) Last Admin: 12/13/17 13:24 Dose: 1 mg Sodium Chloride (Sodium Chloride 0.9%) 1,000 mls @ 125 mls/hr IV .Q8H [facility] Stop: 12/14/17 04:55 Last Admin: 12/13/17 15:12 Dose: 125 mls/hr Vancomycin HCl 1 gm/ Sodium (Chloride) 250 mls @ 166.667 mls/hr IVPB DAILY ELZBIETA PRN Reason: Protocol Last Admin: 12/13/17 13:26 Dose: 166.667 mls/hr Piperacillin Sod/Tazobactam (Sod 3.375 gm/ Sodium Chloride) 100 mls @ 100 mls/ hr IVPB Q8 ELZBIETA PRN Reason: Protocol Last Admin: 12/13/17 13:26 Dose: 100 mls/hr Insulin Human Regular (Humulin R) 0 units SC ACHS ELZBIETA PRN Reason: Protocol Last Admin: 12/13/17 13:29 Dose: 4 units Promethazine HCl/Codeine (Phenergan/Codeine Oral Syrup) 10 ml PO Q4 PRN PRN Reason: Cough Valsartan (Diovan) 320 mg PO DAILY [facility] Last Admin: 12/13/17 13:25 Dose: 320 mg - Labs Labs: 12/12/17 21:37 12/12/17 21:37 PT 12.7 Seconds (9.8-13.1) 12/12/17 21:37 INR 1.1 (0.9-1.2) 12/12/17 21:37 APTT 29.5 Seconds (25.6-37.1) 12/12/17 21:37
[2017-12-13] MEDS: PHENYLEPHRINE HCL 10 MG PO SCH (23:29)
--- NOTE | 2017-12-14 | CP.PCM.CON ---
History of Present Illness - History of Present Illness History of Present Illness: 37 year old male admiited with headaches abdominal pain and diarrrhea for a day and a half. Took some Prednisone at home. In Jul colonoscopy c/w prior Crohns. Not compliantwith meds Review of Systems - Constitutional Constitutional: absent: Chills - EENT Eyes: absent: Blind Spots Ears: absent: Decreased Hearing Nose/Mouth/Throat: absent: Epistaxis - Cardiovascular Cardiovascular: Chest Pain - Respiratory Respiratory: absent: Hemoptysis - Gastrointestinal Gastrointestinal: absent: Belching - Genitourinary Genitourinary: absent: Change in Urinary Stream - Integumentary Integumentary: As Per HPI Past Patient History - Past Medical History & Family History Past Medical History?: Yes - Past Social History Alcohol: None Drugs: Denies - CARDIAC Hx Hypertension: Yes - PULMONARY Hx Asthma: Yes - NEUROLOGICAL Hx Neurological Disorder: No - HEENT Hx HEENT Problems: No - RENAL Hx Chronic Kidney Disease: No - ENDOCRINE/METABOLIC Hx Endocrine Disorders: Yes Hx Diabetes Mellitus Type 2: Yes Other/Comment: diabetic neuropathy - HEMATOLOGICAL/ONCOLOGICAL Hx Human Immunodeficiency Virus (HIV): Yes - INTEGUMENTARY Hx Dermatological Problems: No - MUSCULOSKELETAL/RHEUMATOLOGICAL Hx Musculoskeletal Disorders: Yes Hx Falls: Yes - GASTROINTESTINAL Hx Crohn's Disease: Yes - GENITOURINARY/GYNECOLOGICAL Hx Genitourinary Disorders: No - PSYCHIATRIC Hx Psychophysiologic Disorder: Yes Hx Substance Use: Yes (in an [facility] program) Other/Comment: in a [facility] program - SURGICAL HISTORY Hx Surgeries: Yes Other/Comment: colonoscopy - ANESTHESIA Hx Anesthesia: Yes Hx Anesthesia Reactions: No Hx Malignant Hyperthermia: No Meds Allergies/Adverse Reactions: Allergies Allergy/AdvReac Type Severity Reaction Status Date / Time clarithromycin [From Biaxin] Allergy RASH Verified 12/12/17 20:50 - Medications Medications: Current Medications Gabapentin (Neurontin) 600 mg PO TID [facility] Last Admin: 12/13/17 23:29 Dose: 600 mg Home Med (Mesalamine [Asacol Hd 800mg]) 1.2 gm PO BID [facility] Home Med (Phenylephrine Hcl [Wal-Phed]) 10 mg PO DAILY [facility] Last Admin: 12/13/17 23:29 Dose: 10 mg Hydromorphone HCl (Dilaudid) 1 mg IVP Q4 PRN PRN Reason: Pain, severe (8-10) Last Admin: 12/13/17 23:30 Dose: 1 mg Sodium Chloride (Sodium Chloride 0.9%) 1,000 mls @ 125 mls/hr IV .Q8H [facility] Stop: 12/14/17 04:55 Last Admin: 12/13/17 15:12 Dose: 125 mls/hr Vancomycin HCl 1 gm/ Sodium (Chloride) 250 mls @ 166.667 mls/hr IVPB DAILY [facility] PRN Reason: Protocol Last Admin: 12/13/17 13:26 Dose: 166.667 mls/hr Piperacillin Sod/Tazobactam (Sod 3.375 gm/ Sodium Chloride) 100 mls @ 100 mls/ hr IVPB Q8 [facility] PRN Reason: Protocol Last Admin: 12/13/17 18:22 Dose: 100 mls/hr Insulin Human Regular (Humulin R) 0 units SC ACHS [facility] PRN Reason: Protocol Last Admin: 12/13/17 22:00 Dose: Not Given Prednisone (Prednisone Tab) 10 mg PO DAILY [facility] Promethazine HCl/Codeine (Phenergan/Codeine Oral Syrup) 10 ml PO Q4 PRN PRN Reason: Cough Valsartan (Diovan) 320 mg PO DAILY [facility] Last Admin: 12/13/17 13:25 Dose: 320 mg Zolpidem Tartrate (Ambien) 5 mg PO HS PRN PRN Reason: insomnia Physical Exam - Eye Exam Eye Exam: EOMI - ENT Exam ENT Exam: Mucous Membranes Moist - Cardiovascular Exam Cardiovascular Exam: REGULAR RHYTHM, +S1, +S2 - Rectal Exam Rectal Exam: Deferred. absent: Bloody Stool Results - Vital Signs Recent Vital Signs: Last Vital Signs Temp 98.0 F 12/13/17 23:54 Pulse 90 12/13/17 23:54 Resp 19 12/13/17 23:54 BP 174/104 H 12/13/17 23:54 Pulse Ox 97 12/13/17 23:54 - Labs Result Diagrams: 12/12/17 21:37 12/12/17 21:37 Labs: Laboratory Results - last 24 hr 12/12/17 12/13/17 12/13/17 23:33 01:51 05:18 POC Glucose (mg/dL) 319 H 277 H 295 H Procalcitonin 12/13/17 12/13/17 12/13/17 11:03 15:58 17:46 POC Glucose (mg/dL) 214 H 193 H Procalcitonin < 0.05 L 12/13/17 21:30 POC Glucose (mg/dL) 209 H Procalcitonin Assessment & Plan (1) Leukocytosis Status: Acute (2) Crohns disease Assessment and Plan: Unclear if this represents, Crohns flare or gasttis with you, Contue IV antibiotics Status: Acute
[2017-12-14] MEDS: Piperacillin/Tazobact 3.375 GM in Sodium Chloride 0.9% 100 ML IVPB SCH ×3 (01:00→16:35)
--- NOTE | 2017-12-14 02:54 | CON ---
DATE: 12/13/2017 INFECTIOUS DISEASE CONSULT HISTORY OF PRESENT ILLNESS: The patient is a 37-year-old male who has a long history of ulcerative colitis, Crohn's disease, and also has type 1 diabetes. He came to the emergency room with complaints of severe headache, associated with body aches and weakness along with a dry cough, apparently it began on Monday of last week. He denies any complications in regards to his Crohn's disease or ulcerative colitis, and there is no diarrhea. He stated he took [id number] medicines without any improvement. The patient also gives a past history of similar episode 10 years ago. He also noted some drainage from the periumbilical area, which was being evaluated by Surgery also. PHYSICAL EXAMINATION: GENERAL: The patient appears quite uncomfortable, and he is definitely in severe pain. He is on Dilaudid 1 gm every 4 hourly, and I have given him an additional 0.5 gm for breakthrough pain. HEENT: Head is normocephalic and atraumatic, but he has severe pain in ethmoid and maxillary sinus areas, actually even touching all the facial areas. NECK: Supple, has some submandibular adenopathy. RESPIRATORY: Has some scattered rhonchi at the right base. HEART: Regular sinus rhythm. ABDOMEN: Soft. Positive bowel sounds. Has some purulent discharge from the periumbilical area. No erythema. EXTREMITIES: No C, C, E. LABORATORY DATA: Head CT showed sinus disease, no acute intracranial abnormality. Abdomen CT, enterocolitis consistent with history of Crohn's disease. No CT findings of pancreatitis. White count is 23.8, hemoglobin 13.9, platelet count is 661, indicative of infection, sed rate is 99, and polys 74. Creatinine is 1. GFR is greater than 60. IMPRESSION: 1. Acute sinusitis. 2. Crohn's disease. 3. Uncontrolled diabetes. PLAN: At present time, he is being treated with vancomycin and Zosyn. If no improvement, we will consider changing to Unasyn. The patient might benefit by a neuro consult also. Derick Murcia MD [facility] # [id number]
[2017-12-14] MEDS: HYDROmorphone 1 mg/ml ISec IVP PRN ×5 (03:29→23:33)
[2017-12-14] MEDS: Sodium Chloride 0.9% 1,000 ML IV SCH (03:34)
[2017-12-14 06:26] LABS: BASO # 0.2 K/uL (0.0-0.2); EOS # 0.9 K/uL (0.0-0.7); EOS % 5.8 % (0.0-4.0); HEMOGLOBIN 12.8 g/dL (12.0-18.0); LYMPH # 2.5 K/uL (1.0-4.3); LYMPH % 15.9 % (20.0-40.0); MEAN CELL VOLUME 83.7 fl (80.0-94.0); MEAN CORPUSCULAR HGB CONC 34.7 g/dL (33.0-37.0); MONO # 1.5 K/uL (0.0-0.8); MONO % 9.5 % (0.0-10.0); NEUT # 10.6 K/uL (1.8-7.0); NEUT % 67.8 % (50.0-75.0); RBC 4.41 Mil/uL (4.40-5.90); RED CELL DISTRIBUTION WIDTH 12.7 % (11.5-14.5); WHITE BLOOD COUNT 15.6 K/uL (4.8-10.8)
[2017-12-14] MEDS: Insulin Regular 100 units/ml SC SCH ×4 (06:48→21:45)
[2017-12-14 07:13] LABS: ALB/GLOB RATIO 0.9 (1.0-2.1); ALBUMIN 3.1 g/dL (3.5-5.0); ALT/SGPT 31 U/L (21-72); AST/SGOT 25 U/L (17-59); BLOOD UREA NITROGEN 9 mg/dl (9-20); CALCIUM 8.3 mg/dL (8.4-10.2); GFR AFRICAN-AMERICAN > 60; GFR NON-AFRICAN AMERICAN > 60
--- NOTE | 2017-12-14 08:12 | CP.PCM.PN ---
Subjective - Date & Time of Evaluation Date of Evaluation: 12/14/17 Time of Evaluation: 08:07 - Subjective Subjective: General Surgery - Dr. Clement Patient seen and examined this AM. Pt c/o headaches, generalized weakness, and abdominal pain. Denies N/V/D/F/C. No new complaints. Objective - Vital Signs/Intake and Output Vital Signs (last 24 hours): Temp Pulse Resp BP Pulse Ox 97.5 F L 98 H 20 159/94 H 100 12/14/17 07:56 12/14/17 07:56 12/14/17 07:56 12/14/17 07:56 12/14/17 07:56 - Medications Medications: Current Medications Gabapentin (Neurontin) 600 mg PO TID [facility] Home Med (Phenylephrine Hcl [Wal-Phed]) 10 mg PO DAILY [facility] Last Admin: 12/13/17 23:29 Dose: 10 mg Home Med (Mesalamine [Mesalamine]) 2 tab PO DAILYWM [facility] Hydromorphone HCl (Dilaudid) 1 mg IVP Q4 PRN PRN Reason: Pain, severe (8-10) Last Admin: 12/14/17 03:29 Dose: 1 mg Vancomycin HCl 1 gm/ Sodium (Chloride) 250 mls @ 166.667 mls/hr IVPB DAILY [facility] PRN Reason: Protocol Last Admin: 12/13/17 13:26 Dose: 166.667 mls/hr Piperacillin Sod/Tazobactam (Sod 3.375 gm/ Sodium Chloride) 100 mls @ 100 mls/ hr IVPB Q8 [facility] PRN Reason: Protocol Last Admin: 12/14/17 01:00 Dose: 100 mls/hr Insulin Human Regular (Humulin R) 0 units SC ACHS [facility] PRN Reason: Protocol Last Admin: 12/14/17 06:48 Dose: 2 units Prednisone (Prednisone Tab) 10 mg PO DAILY [facility] Promethazine HCl/Codeine (Phenergan/Codeine Oral Syrup) 10 ml PO Q4 PRN PRN Reason: Cough Valsartan (Diovan) 320 mg PO DAILY [facility] Last Admin: 12/13/17 13:25 Dose: 320 mg Zolpidem Tartrate (Ambien) 5 mg PO HS PRN PRN Reason: insomnia - Labs Labs: 12/14/17 06:05 12/14/17 06:05 PT 12.7 Seconds (9.8-13.1) 12/12/17 21:37 INR 1.1 (0.9-1.2) 12/12/17 21:37 APTT 29.5 Seconds (25.6-37.1) 12/12/17 21:37 - Constitutional Appears: Non-toxic, No Acute Distress - Head Exam Head Exam: ATRAUMATIC, NORMOCEPHALIC - Eye Exam Eye Exam: EOMI, Normal appearance Pupil Exam: NORMAL ACCOMODATION - ENT Exam ENT Exam: Mucous Membranes Moist - Neck Exam Neck Exam: Normal Inspection - Respiratory Exam Respiratory Exam: NORMAL BREATHING PATTERN. absent: Respiratory Distress - Cardiovascular Exam Cardiovascular Exam: REGULAR RHYTHM - GI/Abdominal Exam GI & Abdominal Exam: Soft, Tenderness. absent: Distended, Rigid Additional comments: umbilicus, no active drainage - Extremities Exam Extremities Exam: Full ROM - Neurological Exam Neurological Exam: Alert, Awake, Oriented x3 - Psychiatric Exam Psychiatric exam: Normal Affect, Normal Mood - Skin Skin Exam: Intact, Warm Assessment and Plan - Assessment and Plan (Free Text) Assessment: 37M w/ inflammatory bowel disease and DM non compliant w/ medications, with mild serous drainage from umbilicus, admitted for sinusitis, glucose control. Plan: -f/u umbilicus culture -Continue abx, steroids -Pain control per medicine -No acute surgical intervention at this time Further recs as per Dr. Clement
[2017-12-14] MEDS ORDERED: MESALAMINE PO SCH (09:00)
[2017-12-14] MEDS ORDERED: MESALAMINE 1.2 GM PO SCH (09:00)
[2017-12-14] MEDS: MESALAMINE 1.2 GM PO SCH (09:09)
--- NOTE | 2017-12-14 09:43 | CP.PCM.PN ---
Subjective - Date & Time of Evaluation Date of Evaluation: 12/14/17 Time of Evaluation: 09:39 - Subjective Subjective: patient with no bowel movements since yesterday and abdominal pain is better. Objective - Vital Signs/Intake and Output Vital Signs (last 24 hours): Temp Pulse Resp BP Pulse Ox 97.5 F L 98 H 20 159/94 H 100 12/14/17 07:56 12/14/17 07:56 12/14/17 07:56 12/14/17 07:56 12/14/17 07:56 - Medications Medications: Current Medications Gabapentin (Neurontin) 600 mg PO TID [facility] Last Admin: 12/14/17 09:08 Dose: 600 mg Home Med (Phenylephrine Hcl [Wal-Phed]) 10 mg PO DAILY [facility] Last Admin: 12/13/17 23:29 Dose: 10 mg Home Med (Mesalamine [Mesalamine]) 2 tab PO DAILYWM [facility] Last Admin: 12/14/17 09:09 Dose: 2 tab Hydromorphone HCl (Dilaudid) 1 mg IVP Q4 PRN PRN Reason: Pain, severe (8-10) Last Admin: 12/14/17 03:29 Dose: 1 mg Vancomycin HCl 1 gm/ Sodium (Chloride) 250 mls @ 166.667 mls/hr IVPB DAILY [facility] PRN Reason: Protocol Last Admin: 12/14/17 09:08 Dose: 166.667 mls/hr Piperacillin Sod/Tazobactam (Sod 3.375 gm/ Sodium Chloride) 100 mls @ 100 mls/ hr IVPB Q8 [facility] PRN Reason: Protocol Last Admin: 12/14/17 09:07 Dose: 100 mls/hr Insulin Human Regular (Humulin R) 0 units SC ACHS [facility] PRN Reason: Protocol Last Admin: 12/14/17 06:48 Dose: 2 units Prednisone (Prednisone Tab) 10 mg PO DAILY [facility] Last Admin: 12/14/17 09:09 Dose: 10 mg Promethazine HCl/Codeine (Phenergan/Codeine Oral Syrup) 10 ml PO Q4 PRN PRN Reason: Cough Valsartan (Diovan) 320 mg PO DAILY [facility] Last Admin: 12/14/17 09:10 Dose: 320 mg Zolpidem Tartrate (Ambien) 5 mg PO HS PRN PRN Reason: insomnia - Labs Labs: 12/14/17 06:05 12/14/17 06:05 PT 12.7 Seconds (9.8-13.1) 12/12/17 21:37 INR 1.1 (0.9-1.2) 12/12/17 21:37 APTT 29.5 Seconds (25.6-37.1) 12/12/17 21:37 - Head Exam Head Exam: ATRAUMATIC - Eye Exam Eye Exam: Normal appearance - Respiratory Exam Respiratory Exam: Clear to Ausculation Bilateral - Cardiovascular Exam Cardiovascular Exam: REGULAR RHYTHM - GI/Abdominal Exam GI & Abdominal Exam: Soft, Normal Bowel Sounds. absent: Tenderness Assessment and Plan (1) Leukocytosis Status: Acute (2) Crohns disease Assessment & Plan: Patient is better on antibiotics and low dose prednisone. When discharged will need to explore options other than steroids for Crohns treatment Status: Acute
--- NOTE | 2017-12-14 10:06 | CP.PCM.PN ---
Subjective - Date & Time of Evaluation Date of Evaluation: 12/14/17 Time of Evaluation: 10:05 - Subjective Subjective: Patient seen and examined at bedside with Dr. Bonilla. Reports mild improvement in headache and sinus pain. Is tolerating liquid diet. Denies fevers, chills, or visual changes. Discussed with patient adding PO medications to control his diabetes, agrees for trial and see how he tolerates them. Objective - Vital Signs/Intake and Output Vital Signs (last 24 hours): Temp Pulse Resp BP Pulse Ox 97.5 F L 98 H 20 159/94 H 100 12/14/17 07:56 12/14/17 07:56 12/14/17 07:56 12/14/17 07:56 12/14/17 07:56 - Medications Medications: Current Medications Enoxaparin Sodium (Lovenox) 40 mg SC DAILY [facility] PRN Reason: Protocol Gabapentin (Neurontin) 600 mg PO TID [facility] Last Admin: 12/14/17 09:08 Dose: 600 mg Home Med (Phenylephrine Hcl [Wal-Phed]) 10 mg PO DAILY [facility] Last Admin: 12/13/17 23:29 Dose: 10 mg Home Med (Mesalamine [Mesalamine]) 2 tab PO DAILYWM [facility] Last Admin: 12/14/17 09:09 Dose: 2 tab Hydromorphone HCl (Dilaudid) 1 mg IVP Q4 PRN PRN Reason: Pain, severe (8-10) Last Admin: 12/14/17 03:29 Dose: 1 mg Vancomycin HCl 1 gm/ Sodium (Chloride) 250 mls @ 166.667 mls/hr IVPB DAILY [facility] PRN Reason: Protocol Last Admin: 12/14/17 09:08 Dose: 166.667 mls/hr Piperacillin Sod/Tazobactam (Sod 3.375 gm/ Sodium Chloride) 100 mls @ 100 mls/ hr IVPB Q8 [facility] PRN Reason: Protocol Last Admin: 12/14/17 09:07 Dose: 100 mls/hr Insulin Human Regular (Humulin R) 0 units SC ACHS [facility] PRN Reason: Protocol Last Admin: 12/14/17 06:48 Dose: 2 units Pantoprazole Sodium (Protonix Ec Tab) 40 mg PO DAILY [facility] Prednisone (Prednisone Tab) 10 mg PO DAILY [facility] Last Admin: 12/14/17 09:09 Dose: 10 mg Promethazine HCl/Codeine (Phenergan/Codeine Oral Syrup) 10 ml PO Q4 PRN PRN Reason: Cough Valsartan (Diovan) 320 mg PO DAILY [facility] Last Admin: 12/14/17 09:10 Dose: 320 mg Zolpidem Tartrate (Ambien) 5 mg PO HS PRN PRN Reason: insomnia - Labs Labs: 12/14/17 06:05 12/14/17 06:05 PT 12.7 Seconds (9.8-13.1) 12/12/17 21:37 INR 1.1 (0.9-1.2) 12/12/17 21:37 APTT 29.5 Seconds (25.6-37.1) 12/12/17 21:37 - Constitutional Appears: No Acute Distress - Head Exam Head Exam: NORMAL INSPECTION - Eye Exam Eye Exam: EOMI - ENT Exam ENT Exam: Mucous Membranes Moist - Respiratory Exam Respiratory Exam: NORMAL BREATHING PATTERN - Cardiovascular Exam Cardiovascular Exam: REGULAR RHYTHM - Extremities Exam Extremities Exam: Full ROM - Neurological Exam Neurological Exam: Alert, Awake - Psychiatric Exam Psychiatric exam: Normal Affect, Normal Mood - Skin Skin Exam: Dry, Warm Assessment and Plan - Assessment and Plan (Free Text) Assessment: 37 yr old M admitted for acute sinusitis with significant leukocytosis and CT findings of enterocolitis with PMHx chrons' disease, discharge from umbilicus. Plan: -advance diet as tolerated -leukocytosis improving -ID on board, continue vanco and zosyn -GI on board, will follow recommendations, f/u C.diff -pain management -nasal saline spray -wound care -Otolaryngology consult: will follow recommendations
--- NOTE | 2017-12-14 10:12 | CP.PCM.HP ---
History of Present Illness - History of Present Illness History of Present Illness: Patient seen and examined at bedside with Dr. Bonilla 37 yr old M presented to ED with complaint of worsening acute headache x 5 days. Associated symptoms are dry cough, decreased appetite, body aches and overall malaise. Denies fevers, chills, nausea, vomiting, sick contacts at home. Reports he took Prednisone PO 5mg QD x 3 days from a prior prescription he had at home and this did not help, as well as other OTC medications. PMHx includes IDDM type 2, HTN, Chron's disease, chronic abdominal and back pain. PMD: Dr. Pastor PMHx: IDDM type 2, HTN, Chron's disease, chronic abdominal and back pain SurgHx: denies FMHx: noncontributory SocHx: tobacco user 1pack per day, denies Etoh or drugs Medications: see medication reconciliation Allergies: clarithromycin ED course: BP 138/90 mmHg, HR 103 bpm, Resp 20, O2 sat 98%, Temp 97.6 F -CXR: No active disease -EKG: normal sinus rhythm at 98bpm, no significant ST-T changes -CBC: WBC 23.8, H/H 13.9/40.7, plt 661 -CMP: within normal limits -coags within normal limits -C-reative protein 78.70 -negative for influenza A/B -CT head: sinus disease, mucoperiosteal thickening in sinuses, no acute intracranial abnormality -Abd/Pelvis CT: enterocolitis consistent with hx of Chron's disease -ED tx: NS 2L IV bolus, Insulin 8 units IV once, Morphine 4mg IV once, Promethazine/Codeine 10 ml PO once, Rocephin 1gm IV once, Toradol 15mg IV x 2, Present on Admission - Present on Admission Any Indicators Present on Admission: Yes History of DVT/PE: No History of Uncontrolled Diabetes: Yes Urinary Catheter: No Decubitus Ulcer Present: No History Surgical Site Infection Following: None Review of Systems - Constitutional Constitutional: Headache. absent: Chills, Fever - EENT Eyes: absent: Change in Vision Ears: absent: Ear Pain, Dizziness Nose/Mouth/Throat: Sinus Pain, Sinus Pressure. absent: Sore Throat - Cardiovascular Cardiovascular: absent: Chest Pain, Dyspnea - Respiratory Respiratory: Cough. absent: Hemoptysis - Gastrointestinal Gastrointestinal: absent: Abdominal Pain, Diarrhea, Nausea, Vomiting - Genitourinary Genitourinary: absent: Difficulty Urinating, Dysuria - Musculoskeletal Musculoskeletal: absent: Myalgias - Integumentary Integumentary: Wounds (discharge from umbilicus) - Neurological Neurological: absent: Confusion, Focal Weakness, Weakness - Psychiatric Psychiatric: absent: Anxiety - Endocrine Endocrine: absent: Polydipsia, Polyphagia, Polyuria - Hematologic/Lymphatic Hematologic: absent: Easy Bleeding, Easy Bruising Past Patient History - Past Medical History & Family History Past Medical History?: Yes - Past Social History Alcohol: None Drugs: Denies - CARDIAC Hx Hypertension: Yes - PULMONARY Hx Asthma: Yes - NEUROLOGICAL Hx Neurological Disorder: No - HEENT Hx HEENT Problems: No - RENAL Hx Chronic Kidney Disease: No - ENDOCRINE/METABOLIC Hx Endocrine Disorders: Yes Hx Diabetes Mellitus Type 2: Yes Other/Comment: diabetic neuropathy - HEMATOLOGICAL/ONCOLOGICAL Hx Human Immunodeficiency Virus (HIV): Yes - INTEGUMENTARY Hx Dermatological Problems: No - MUSCULOSKELETAL/RHEUMATOLOGICAL Hx Musculoskeletal Disorders: Yes Hx Falls: Yes - GASTROINTESTINAL Hx Crohn's Disease: Yes - GENITOURINARY/GYNECOLOGICAL Hx Genitourinary Disorders: No - PSYCHIATRIC Hx Psychophysiologic Disorder: Yes Hx Substance Use: Yes (in an [facility] program) Other/Comment: in a [facility] program - SURGICAL HISTORY Hx Surgeries: Yes Other/Comment: colonoscopy - ANESTHESIA Hx Anesthesia: Yes Hx Anesthesia Reactions: No Hx Malignant Hyperthermia: No Meds Allergies/Adverse Reactions: Allergies Allergy/AdvReac Type Severity Reaction Status Date / Time clarithromycin [From Biaxin] Allergy RASH Verified 12/12/17 20:50 Physical Exam - Constitutional Appears: No Acute Distress - Head Exam Head Exam: ATRAUMATIC, NORMOCEPHALIC - Eye Exam Eye Exam: Periorbital swelling (mild), Periorbital tenderness (moderate, especially in bilateral maxillary sinuses) - ENT Exam ENT Exam: Mucous Membranes Moist - Neck Exam Neck exam: Positive for: Full Rom. Negative for: Lymphadenopathy - Respiratory Exam Respiratory Exam: Clear to Auscultation Bilateral, NORMAL BREATHING PATTERN - Cardiovascular Exam Cardiovascular Exam: REGULAR RHYTHM, +S1, +S2 - GI/Abdominal Exam GI & Abdominal Exam: Normal Bowel Sounds, Soft - Extremities Exam Extremities exam: Positive for: full ROM. Negative for: calf tenderness - Back Exam Back exam: absent: CVA tenderness (L), CVA tenderness (R) - Neurological Exam Neurological exam: Alert, CN II-XII Intact, Oriented x3 - Psychiatric Exam Psychiatric exam: Normal Affect, Normal Mood - Skin Skin Exam: Dry, Normal Color, Warm Results - Vital Signs Recent Vital Signs: Last Vital Signs Temp 97.5 F L 12/14/17 07:56 Pulse 98 H 12/14/17 07:56 Resp 20 12/14/17 07:56 BP 159/94 H 12/14/17 07:56 Pulse Ox 100 12/14/17 07:56 - Labs Result Diagrams: 12/14/17 06:05 12/14/17 06:05 Labs: Laboratory Results - last 24 hr 12/13/17 12/13/17 12/13/17 11:03 15:58 17:46 WBC RBC Hgb Hct MCV MCH MCHC RDW Plt Count MPV Neut % (Auto) Lymph % (Auto) [place] % (Auto) Eos % (Auto) Baso % (Auto) Neut # (Auto) Lymph # (Auto) [place] # (Auto) Eos # (Auto) Baso # (Auto) ESR Sodium Potassium Chloride Carbon Dioxide Anion Gap BUN Creatinine Est GFR ( Amer) Est GFR (Non-Af Amer) POC Glucose (mg/dL) 214 H 193 H Random Glucose Calcium Total Bilirubin AST ALT Alkaline Phosphatase Total Protein Albumin Globulin Albumin/Globulin Ratio Procalcitonin < 0.05 L 12/13/17 12/14/17 12/14/17 21:30 06:05 06:05 WBC 15.6 H RBC 4.41 Hgb 12.8 Hct 36.9 MCV 83.7 MCH 29.0 MCHC 34.7 RDW 12.7 Plt Count 577 H MPV 7.0 L Neut % (Auto) 67.8 Lymph % (Auto) 15.9 L [place] % (Auto) 9.5 Eos % (Auto) 5.8 H Baso % (Auto) 1.0 Neut # (Auto) 10.6 H Lymph # (Auto) 2.5 [place] # (Auto) 1.5 H Eos # (Auto) 0.9 H Baso # (Auto) 0.2 ESR 88 H Sodium 137 Potassium 4.4 Chloride 102 Carbon Dioxide 26 Anion Gap 13 BUN 9 Creatinine 0.9 Est GFR ( Amer) > 60 Est GFR (Non-Af Amer) > 60 POC Glucose (mg/dL) 209 H Random Glucose 233 H Calcium 8.3 L Total Bilirubin 0.5 AST 25 ALT 31 Alkaline Phosphatase 65 Total Protein 6.4 Albumin 3.1 L D Globulin 3.4 Albumin/Globulin Ratio 0.9 L Procalcitonin 12/14/17 06:41 WBC RBC Hgb Hct MCV MCH MCHC RDW Plt Count MPV Neut % (Auto) Lymph % (Auto) [place] % (Auto) Eos % (Auto) Baso % (Auto) Neut # (Auto) Lymph # (Auto) [place] # (Auto) Eos # (Auto) Baso # (Auto) ESR Sodium Potassium Chloride Carbon Dioxide Anion Gap BUN Creatinine Est GFR ( Amer) Est GFR (Non-Af Amer) POC Glucose (mg/dL) 196 H Random Glucose Calcium Total Bilirubin AST ALT Alkaline Phosphatase Total Protein Albumin Globulin Albumin/Globulin Ratio Procalcitonin Assessment & Plan - Assessment and Plan (Free Text) Assessment: 37 yr old M admitted for acute sinusitis with significant leukocytosis and CT findings of enterocolitis with PMHx chrons' disease, discharge from umbilicus. Plan: -admit to med/surg -ID on board, started vanco and zosyn -GI on board, will follow recommendations -pain management -nasal saline spray -wound care -Otolaryngology consult: will follow recommendations - Date & Time Date: 12/13/17 Time: 10:00
[2017-12-14] MEDS: Enoxaparin 40 mg Syringe SC SCH (12:34)
[2017-12-14] MEDS: Pantoprazole 40 mg EC Tab PO SCH (12:39)
--- NOTE | 2017-12-14 21:01 | CP.PCM.PN ---
Subjective - Date & Time of Evaluation Date of Evaluation: 12/14/17 Time of Evaluation: 20:56 - Subjective Subjective: see below Objective - Vital Signs/Intake and Output Vital Signs (last 24 hours): Temp Pulse Resp BP Pulse Ox 97.3 F L 88 18 159/97 H 96 12/14/17 16:15 12/14/17 16:15 12/14/17 16:15 12/14/17 16:15 12/14/17 16:15 - Medications Medications: Current Medications Enoxaparin Sodium (Lovenox) 40 mg SC DAILY [facility] PRN Reason: Protocol Last Admin: 12/14/17 12:34 Dose: 40 mg Gabapentin (Neurontin) 600 mg PO TID [facility] Last Admin: 12/14/17 16:35 Dose: 600 mg Home Med (Phenylephrine Hcl [Wal-Phed]) 10 mg PO DAILY [facility] Last Admin: 12/13/17 23:29 Dose: 10 mg Home Med (Mesalamine [Mesalamine]) 2 tab PO DAILYWM [facility] Last Admin: 12/14/17 09:09 Dose: 2 tab Hydromorphone HCl (Dilaudid) 1 mg IVP Q4 PRN PRN Reason: Pain, severe (8-10) Last Admin: 12/14/17 19:38 Dose: 1 mg Vancomycin HCl 1 gm/ Sodium (Chloride) 250 mls @ 166.667 mls/hr IVPB DAILY [facility] PRN Reason: Protocol Last Admin: 12/14/17 09:08 Dose: 166.667 mls/hr Piperacillin Sod/Tazobactam (Sod 3.375 gm/ Sodium Chloride) 100 mls @ 100 mls/ hr IVPB Q8 [facility] PRN Reason: Protocol Last Admin: 12/14/17 16:35 Dose: 100 mls/hr Insulin Human Regular (Humulin R) 0 units SC ACHS [facility] PRN Reason: Protocol Last Admin: 12/14/17 16:34 Dose: 8 units Metformin HCl (Glucophage) 500 mg PO BIDWM [facility] Last Admin: 12/14/17 16:35 Dose: 500 mg Metoprolol Tartrate (Lopressor) 50 mg PO Q12 [facility] Last Admin: 12/14/17 18:01 Dose: 50 mg Oxymetazoline HCl (Nasal Decongestant 15 Ml) 2 spr NS Q12 [facility] Stop: 12/17/17 09:01 Pantoprazole Sodium (Protonix Ec Tab) 40 mg PO DAILY [facility] Last Admin: 12/14/17 12:39 Dose: 40 mg Prednisone (Prednisone Tab) 10 mg PO DAILY [facility] Last Admin: 12/14/17 09:09 Dose: 10 mg Promethazine HCl/Codeine (Phenergan/Codeine Oral Syrup) 10 ml PO Q4 PRN PRN Reason: Cough Sitagliptin Phosphate (Januvia) 100 mg PO DAILY [facility] Last Admin: 12/14/17 12:35 Dose: 100 mg Valsartan (Diovan) 320 mg PO DAILY [facility] Last Admin: 12/14/17 09:10 Dose: 320 mg Zolpidem Tartrate (Ambien) 5 mg PO HS PRN PRN Reason: insomnia - Labs Labs: 12/14/17 06:05 12/14/17 06:05 PT 12.7 Seconds (9.8-13.1) 12/12/17 21:37 INR 1.1 (0.9-1.2) 12/12/17 21:37 APTT 29.5 Seconds (25.6-37.1) 12/12/17 21:37 Assessment and Plan - Assessment and Plan (Free Text) Assessment: Chief complaint / Reason for consult Sinusitis HPI 37 y/o male with one week of URI symptoms and GI upset. He c/o diffuse intermittent headaches and facial pain involving b/l cheeks, upper teeth, forehead and eyes. This was associated with b/l nasal congestion. No recurrent sinus infections. He feels better since being admitted 2 days ago ( both congestion and HOU). PMH DM crohns dz / UC ROS see HPI Exam awake, alert ,comfortable oc/op clear face symmetric, no significant tenderness, no facial swelling nose: inferior turbinates 2+ b/l; septum to the left nasal endoscopy: minimal-moderate mucosal edema b/l; no mucpous in either nasal cavity or either middle meatus or sphenoethmoid recess; left accessory maxillary os patent and clear. CT reviewed: minimal mucosal thickening in the left maxillary, ethmoid and sphenoid sinuses; frontals clear. no air-fluid levels or significant sinus disease WBC 15 (down from 23) Impression acute sinusitis, improving on IV abx Recommend continue IV abx per ID; would continue on PO abx for total duration of 10-14d ( IV+PO) one dose of Prednisone 30mg may also help if ok from medical standpoint jaswinder montelongo
[2017-12-14] MEDS: PHENYLEPHRINE HCL 10 MG PO SCH (21:18)
[2017-12-15] MEDS: Piperacillin/Tazobact 3.375 GM in Sodium Chloride 0.9% 100 ML IVPB SCH ×3 (01:01→17:04)
[2017-12-15] MEDS: HYDROmorphone 1 mg/ml ISec IVP PRN ×2 (06:02→10:08)
[2017-12-15 06:12] LABS: BASO # 0.4 K/uL (0.0-0.2); BASO % 2.3 % (0.0-2.0); EOS # 0.8 K/uL (0.0-0.7); HEMOGLOBIN 12.5 g/dL (12.0-18.0); LYMPH # 3.7 K/uL (1.0-4.3); LYMPH % 19.5 % (20.0-40.0); MEAN CELL VOLUME 84.1 fl (80.0-94.0); MEAN CORPUSCULAR HEMOGLOBIN 29.4 pg (27.0-31.0); MEAN PLATELET VOLUME 7.2 fl (7.2-11.7); MONO # 2.1 K/uL (0.0-0.8); MONO % 11.2 % (0.0-10.0); NEUT # 11.9 K/uL (1.8-7.0); NRBC % 0.1 % (0.0-0.0); RBC 4.24 Mil/uL (4.40-5.90); RED CELL DISTRIBUTION WIDTH 12.6 % (11.5-14.5); WHITE BLOOD COUNT 18.9 K/uL (4.8-10.8)
[2017-12-15 06:25] LABS: BLOOD UREA NITROGEN 9 mg/dl (9-20); CALCIUM 8.5 mg/dL (8.4-10.2); GFR AFRICAN-AMERICAN > 60; GFR NON-AFRICAN AMERICAN > 60; HDL CHOLESTEROL 18 MG/DL (30-70)
[2017-12-15 06:35] LABS: LDL CHOLESTEROL 70 mg/dL (0-129)
--- NOTE | 2017-12-15 07:48 | CP.PCM.PN ---
Subjective - Date & Time of Evaluation Date of Evaluation: 12/15/17 Time of Evaluation: 07:48 - Subjective Subjective: Patient seen and examined at bedside with Dr. Bonilla. Reports his sinus pain and headache are worse today. Patient was seen by ENT who recommended Afrin and Prednisone 30mg PO once. Has complaint of persistent diarrhea. C. diff antigen positive, toxin negative. Start Flagyl PO. Objective - Vital Signs/Intake and Output Vital Signs (last 24 hours): Temp Pulse Resp BP Pulse Ox 98.3 F 78 20 134/81 97 12/15/17 07:43 12/15/17 07:43 12/15/17 07:43 12/15/17 07:43 12/15/17 07:43 - Medications Medications: Current Medications Enoxaparin Sodium (Lovenox) 40 mg SC DAILY [facility] PRN Reason: Protocol Last Admin: 12/14/17 12:34 Dose: 40 mg Gabapentin (Neurontin) 600 mg PO TID [facility] Last Admin: 12/14/17 16:35 Dose: 600 mg Home Med (Phenylephrine Hcl [Wal-Phed]) 10 mg PO DAILY [facility] Last Admin: 12/14/17 21:18 Dose: 10 mg Home Med (Mesalamine [Mesalamine]) 2 tab PO DAILYWM [facility] Last Admin: 12/14/17 09:09 Dose: 2 tab Hydromorphone HCl (Dilaudid) 1 mg IVP Q4 PRN PRN Reason: Pain, severe (8-10) Last Admin: 12/15/17 06:02 Dose: 1 mg Vancomycin HCl 1 gm/ Sodium (Chloride) 250 mls @ 166.667 mls/hr IVPB DAILY [facility] PRN Reason: Protocol Last Admin: 12/14/17 09:08 Dose: 166.667 mls/hr Piperacillin Sod/Tazobactam (Sod 3.375 gm/ Sodium Chloride) 100 mls @ 100 mls/ hr IVPB Q8 [facility] PRN Reason: Protocol Last Admin: 12/15/17 01:01 Dose: 100 mls/hr Insulin Human Regular (Humulin R) 0 units SC ACHS [facility] PRN Reason: Protocol Last Admin: 12/14/17 21:45 Dose: Not Given Metformin HCl (Glucophage) 500 mg PO BIDWM [facility] Last Admin: 12/14/17 16:35 Dose: 500 mg Metoprolol Tartrate (Lopressor) 50 mg PO Q12 [facility] Last Admin: 12/14/17 18:01 Dose: 50 mg Oxymetazoline HCl (Nasal Decongestant 15 Ml) 2 spr NS Q12 [facility] Stop: 12/17/17 09:01 Last Admin: 12/14/17 21:15 Dose: 2 spr Pantoprazole Sodium (Protonix Ec Tab) 40 mg PO DAILY [facility] Last Admin: 12/14/17 12:39 Dose: 40 mg Prednisone (Prednisone Tab) 10 mg PO DAILY [facility] Last Admin: 12/14/17 09:09 Dose: 10 mg Prednisone (Prednisone Tab) 30 mg PO ONCE ONE Stop: 12/15/17 09:01 Promethazine HCl/Codeine (Phenergan/Codeine Oral Syrup) 10 ml PO Q4 PRN PRN Reason: Cough Last Admin: 12/15/17 06:09 Dose: 10 ml Sitagliptin Phosphate (Januvia) 100 mg PO DAILY [facility] Last Admin: 12/14/17 12:35 Dose: 100 mg Valsartan (Diovan) 320 mg PO DAILY [facility] Last Admin: 12/14/17 09:10 Dose: 320 mg Zolpidem Tartrate (Ambien) 5 mg PO HS PRN PRN Reason: insomnia - Labs Labs: 12/15/17 05:20 12/15/17 05:20 PT 12.7 Seconds (9.8-13.1) 12/12/17 21:37 INR 1.1 (0.9-1.2) 12/12/17 21:37 APTT 29.5 Seconds (25.6-37.1) 12/12/17 21:37 - Constitutional Appears: No Acute Distress - Eye Exam Eye Exam: Normal appearance - ENT Exam ENT Exam: Mucous Membranes Moist - Respiratory Exam Respiratory Exam: NORMAL BREATHING PATTERN - Cardiovascular Exam Cardiovascular Exam: REGULAR RHYTHM - GI/Abdominal Exam Additional comments: no discharge from umbilicus - Extremities Exam Extremities Exam: Full ROM. absent: Pedal Edema - Neurological Exam Neurological Exam: Alert, Awake - Psychiatric Exam Psychiatric exam: Normal Affect, Normal Mood - Skin Skin Exam: Dry, Warm Assessment and Plan - Assessment and Plan (Free Text) Assessment: 37 yr old M admitted for acute sinusitis with significant leukocytosis and CT findings of enterocolitis with PMHx chrons' disease. Discharge from umbilicus has resolved. Plan: -diabetic diet -leukocytosis improving -ID on board, continue vanco and zosyn -GI on board, will follow recommendations, f/u C.diff -pain management -nasal saline spray -wound care -Otolaryngology consult: Prednisone 30mg PO once, Afrin and continue antibiotics for a total of 14 days
--- NOTE | 2017-12-15 08:08 | CP.PCM.PN ---
Subjective - Date & Time of Evaluation Date of Evaluation: 12/15/17 Time of Evaluation: 07:53 - Subjective Subjective: General Surgery - Dr. Clement Patient seen and examined this AM. Patient reports 5-6 episodes of diarrhea yesterday. C/o non-productive cough; abdominal pain improving. No longer having discharge from umbilicus. Tolerating diet. Denies N/V/F/C. Objective - Vital Signs/Intake and Output Vital Signs (last 24 hours): Temp Pulse Resp BP Pulse Ox 98.3 F 78 20 134/81 97 12/15/17 07:43 12/15/17 07:43 12/15/17 07:43 12/15/17 07:43 12/15/17 07:43 - Medications Medications: Current Medications Enoxaparin Sodium (Lovenox) 40 mg SC DAILY [facility] PRN Reason: Protocol Last Admin: 12/14/17 12:34 Dose: 40 mg Gabapentin (Neurontin) 600 mg PO TID [facility] Last Admin: 12/14/17 16:35 Dose: 600 mg Home Med (Phenylephrine Hcl [Wal-Phed]) 10 mg PO DAILY [facility] Last Admin: 12/14/17 21:18 Dose: 10 mg Home Med (Mesalamine [Mesalamine]) 2 tab PO DAILYWM [facility] Last Admin: 12/14/17 09:09 Dose: 2 tab Hydromorphone HCl (Dilaudid) 1 mg IVP Q4 PRN PRN Reason: Pain, severe (8-10) Last Admin: 12/15/17 06:02 Dose: 1 mg Vancomycin HCl 1 gm/ Sodium (Chloride) 250 mls @ 166.667 mls/hr IVPB DAILY [facility] PRN Reason: Protocol Last Admin: 12/14/17 09:08 Dose: 166.667 mls/hr Piperacillin Sod/Tazobactam (Sod 3.375 gm/ Sodium Chloride) 100 mls @ 100 mls/ hr IVPB Q8 [facility] PRN Reason: Protocol Last Admin: 12/15/17 01:01 Dose: 100 mls/hr Insulin Human Regular (Humulin R) 0 units SC ACHS [facility] PRN Reason: Protocol Last Admin: 12/14/17 21:45 Dose: Not Given Metformin HCl (Glucophage) 500 mg PO BIDWM [facility] Last Admin: 12/14/17 16:35 Dose: 500 mg Metoprolol Tartrate (Lopressor) 50 mg PO Q12 [facility] Last Admin: 12/14/17 18:01 Dose: 50 mg Oxymetazoline HCl (Nasal Decongestant 15 Ml) 2 spr NS Q12 [facility] Stop: 12/17/17 09:01 Last Admin: 12/14/17 21:15 Dose: 2 spr Pantoprazole Sodium (Protonix Ec Tab) 40 mg PO DAILY [facility] Last Admin: 12/14/17 12:39 Dose: 40 mg Prednisone (Prednisone Tab) 10 mg PO DAILY [facility] Last Admin: 12/14/17 09:09 Dose: 10 mg Prednisone (Prednisone Tab) 30 mg PO ONCE ONE Stop: 12/15/17 09:01 Promethazine HCl/Codeine (Phenergan/Codeine Oral Syrup) 10 ml PO Q4 PRN PRN Reason: Cough Last Admin: 12/15/17 06:09 Dose: 10 ml Sitagliptin Phosphate (Januvia) 100 mg PO DAILY [facility] Last Admin: 12/14/17 12:35 Dose: 100 mg Valsartan (Diovan) 320 mg PO DAILY [facility] Last Admin: 12/14/17 09:10 Dose: 320 mg Zolpidem Tartrate (Ambien) 5 mg PO HS PRN PRN Reason: insomnia - Labs Labs: 12/15/17 05:20 12/15/17 05:20 PT 12.7 Seconds (9.8-13.1) 12/12/17 21:37 INR 1.1 (0.9-1.2) 12/12/17 21:37 APTT 29.5 Seconds (25.6-37.1) 12/12/17 21:37 - Constitutional Appears: Non-toxic, No Acute Distress - Head Exam Head Exam: ATRAUMATIC, NORMAL INSPECTION, NORMOCEPHALIC - Eye Exam Eye Exam: EOMI, Normal appearance Pupil Exam: NORMAL ACCOMODATION, PERRL - ENT Exam ENT Exam: Mucous Membranes Moist - Respiratory Exam Respiratory Exam: NORMAL BREATHING PATTERN. absent: Respiratory Distress - Cardiovascular Exam Cardiovascular Exam: REGULAR RHYTHM - GI/Abdominal Exam GI & Abdominal Exam: Soft. absent: Distended, Rigid, Tenderness - Extremities Exam Extremities Exam: Normal Inspection - Neurological Exam Neurological Exam: Alert, Awake, Oriented x3 - Psychiatric Exam Psychiatric exam: Normal Affect, Normal Mood - Skin Skin Exam: Intact, Normal Color Assessment and Plan - Assessment and Plan (Free Text) Assessment: 37M w/ inflammatory bowel disease and DM non compliant w/ medications, with mild serous drainage from umbilicus, admitted for sinusitis, glucose control. Plan: -f/u umbilicus culture -f/u C.diff -Diabetic diet -Continue abx, steroids -GI recs appreciated -Pain control per medicine -No acute surgical intervention at this time Further recs as per Dr. Clement
[2017-12-15] MEDS: Insulin Regular 100 units/ml SC SCH ×4 (08:24→22:29)
[2017-12-15] MEDS: Enoxaparin 40 mg Syringe SC SCH (08:25)
[2017-12-15] MEDS: Pantoprazole 40 mg EC Tab PO SCH (08:27)
--- NOTE | 2017-12-15 10:24 | CP.PCM.PN ---
Subjective - Date & Time of Evaluation Date of Evaluation: 02/14/18 Time of Evaluation: 10:22 - Subjective Subjective: I D NOTE IMPROVING ENT NOTE REVIEWED CONTINUE IV ANTIBIOTICS Objective - Vital Signs/Intake and Output Vital Signs (last 24 hours): Temp Pulse Resp BP Pulse Ox 98.3 F 78 20 134/81 97 12/15/17 07:43 12/15/17 08:24 12/15/17 07:43 12/15/17 08:24 12/15/17 07:43 - Medications Medications: Current Medications Enoxaparin Sodium (Lovenox) 40 mg SC DAILY [facility] PRN Reason: Protocol Last Admin: 12/15/17 08:25 Dose: 40 mg Gabapentin (Neurontin) 600 mg PO TID [facility] Last Admin: 12/14/17 16:35 Dose: 600 mg Home Med (Phenylephrine Hcl [Wal-Phed]) 10 mg PO DAILY [facility] Last Admin: 12/14/17 21:18 Dose: 10 mg Home Med (Mesalamine [Mesalamine]) 2 tab PO DAILYWM [facility] Last Admin: 12/14/17 09:09 Dose: 2 tab Hydromorphone HCl (Dilaudid) 1 mg IVP Q4 PRN PRN Reason: Pain, severe (8-10) Last Admin: 12/15/17 10:08 Dose: 1 mg Vancomycin HCl 1 gm/ Sodium (Chloride) 250 mls @ 166.667 mls/hr IVPB DAILY [facility] PRN Reason: Protocol Last Admin: 12/15/17 10:04 Dose: 166.667 mls/hr Piperacillin Sod/Tazobactam (Sod 3.375 gm/ Sodium Chloride) 100 mls @ 100 mls/ hr IVPB Q8 [facility] PRN Reason: Protocol Last Admin: 12/15/17 08:27 Dose: 100 mls/hr Insulin Human Regular (Humulin R) 0 units SC ACHS [facility] PRN Reason: Protocol Last Admin: 12/15/17 08:24 Dose: 2 units Metformin HCl (Glucophage) 500 mg PO BIDWM [facility] Last Admin: 12/15/17 08:24 Dose: 500 mg Metoprolol Tartrate (Lopressor) 50 mg PO Q12 [facility] Last Admin: 12/15/17 08:24 Dose: 50 mg Oxymetazoline HCl (Nasal Decongestant 15 Ml) 2 spr NS Q12 [facility] Stop: 12/17/17 09:01 Last Admin: 12/15/17 08:25 Dose: 2 spr Pantoprazole Sodium (Protonix Ec Tab) 40 mg PO DAILY [facility] Last Admin: 12/15/17 08:27 Dose: 40 mg Prednisone (Prednisone Tab) 10 mg PO DAILY [facility] Last Admin: 12/15/17 08:31 Dose: Not Given Promethazine HCl/Codeine (Phenergan/Codeine Oral Syrup) 10 ml PO Q4 PRN PRN Reason: Cough Last Admin: 12/15/17 06:09 Dose: 10 ml Sitagliptin Phosphate (Januvia) 100 mg PO DAILY [facility] Last Admin: 12/15/17 08:25 Dose: 100 mg Valsartan (Diovan) 320 mg PO DAILY [facility] Last Admin: 12/15/17 08:24 Dose: 320 mg Zolpidem Tartrate (Ambien) 5 mg PO HS PRN PRN Reason: insomnia - Labs Labs: 12/15/17 05:20 12/15/17 05:20 PT 12.7 Seconds (9.8-13.1) 12/12/17 21:37 INR 1.1 (0.9-1.2) 12/12/17 21:37 APTT 29.5 Seconds (25.6-37.1) 12/12/17 21:37
[2017-12-15] MEDS: MESALAMINE 1.2 GM PO SCH (10:40)
[2017-12-15] MEDS: PHENYLEPHRINE HCL 10 MG PO SCH (10:41)
[2017-12-15] MEDS: Dextrose 5%/Lactated Ringer's 1,000 ML IV SCH ×2 (12:35→18:54)
--- NOTE | 2017-12-15 14:40 | CP.PCM.PN ---
Subjective - Date & Time of Evaluation Date of Evaluation: 12/15/17 Time of Evaluation: 14:34 - Subjective Subjective: Patient with large amount of diarrhea last night after dinner. Had C. diff + stool. Objective - Vital Signs/Intake and Output Vital Signs (last 24 hours): Temp Pulse Resp BP Pulse Ox 98.3 F 78 20 134/81 97 12/15/17 07:43 12/15/17 08:24 12/15/17 07:43 12/15/17 08:24 12/15/17 07:43 - Medications Medications: Current Medications Enoxaparin Sodium (Lovenox) 40 mg SC DAILY [facility] PRN Reason: Protocol Last Admin: 12/15/17 08:25 Dose: 40 mg Gabapentin (Neurontin) 600 mg PO TID [facility] Last Admin: 12/15/17 12:36 Dose: 600 mg Glipizide (Glucotrol) 5 mg PO ACB [facility] Last Admin: 12/15/17 12:36 Dose: 5 mg Home Med (Phenylephrine Hcl [Wal-Phed]) 10 mg PO DAILY [facility] Last Admin: 12/15/17 10:41 Dose: 10 mg Home Med (Mesalamine [Mesalamine]) 2 tab PO DAILYWM [facility] Last Admin: 12/15/17 10:40 Dose: 2 tab Vancomycin HCl 1 gm/ Sodium (Chloride) 250 mls @ 166.667 mls/hr IVPB DAILY [facility] PRN Reason: Protocol Last Admin: 12/15/17 10:04 Dose: 166.667 mls/hr Piperacillin Sod/Tazobactam (Sod 3.375 gm/ Sodium Chloride) 100 mls @ 100 mls/ hr IVPB Q8 [facility] PRN Reason: Protocol Last Admin: 12/15/17 08:27 Dose: 100 mls/hr Dextrose/Lactated Ringer's (Dextrose 5%/Lactated Ringer's) 1,000 mls @ 125 mls/ hr IV .Q8H [facility] Stop: 12/16/17 10:42 Last Admin: 12/15/17 12:35 Dose: 125 mls/hr Ibuprofen (Motrin Tab) 600 mg PO Q6 PRN PRN Reason: Pain, moderate (4-7) Insulin Human Regular (Humulin R) 0 units SC ACHS [facility] PRN Reason: Protocol Last Admin: 12/15/17 12:37 Dose: 4 units Metformin HCl (Glucophage) 500 mg PO BIDWM [facility] Last Admin: 12/15/17 08:24 Dose: 500 mg Metoprolol Tartrate (Lopressor) 50 mg PO Q12 [facility] Last Admin: 12/15/17 08:24 Dose: 50 mg Metronidazole (Flagyl) 500 mg PO Q12 [facility] PRN Reason: Protocol Last Admin: 12/15/17 12:35 Dose: 500 mg Oxymetazoline HCl (Nasal Decongestant 15 Ml) 2 spr NS Q12 [facility] Stop: 12/17/17 09:01 Last Admin: 12/15/17 08:25 Dose: 2 spr Pantoprazole Sodium (Protonix Ec Tab) 40 mg PO DAILY [facility] Last Admin: 12/15/17 08:27 Dose: 40 mg Prednisone (Prednisone Tab) 10 mg PO DAILY [facility] Last Admin: 12/15/17 08:31 Dose: Not Given Sitagliptin Phosphate (Januvia) 100 mg PO DAILY [facility] Last Admin: 12/15/17 08:25 Dose: 100 mg Tramadol HCl (Ultram) 50 mg PO Q6 PRN PRN Reason: Pain, severe (8-10) Last Admin: 12/15/17 14:30 Dose: 50 mg Valsartan (Diovan) 320 mg PO DAILY [facility] Last Admin: 12/15/17 08:24 Dose: 320 mg Zolpidem Tartrate (Ambien) 5 mg PO HS PRN PRN Reason: insomnia - Labs Labs: 12/15/17 05:20 12/15/17 05:20 PT 12.7 Seconds (9.8-13.1) 12/12/17 21:37 INR 1.1 (0.9-1.2) 12/12/17 21:37 APTT 29.5 Seconds (25.6-37.1) 12/12/17 21:37 - Head Exam Head Exam: ATRAUMATIC - Eye Exam Eye Exam: Normal appearance - ENT Exam ENT Exam: Normal Exam - Neck Exam Neck Exam: Full ROM - Respiratory Exam Respiratory Exam: Clear to Ausculation Bilateral - Cardiovascular Exam Cardiovascular Exam: REGULAR RHYTHM, +S1, +S2 - GI/Abdominal Exam GI & Abdominal Exam: Soft, Tenderness, Normal Bowel Sounds Additional comments: LLQ tenderness Assessment and Plan (1) Leukocytosis Assessment & Plan: Stool test showed C. diff. Metronidazole po 500 mg TID x 10 days. Status: Acute (2) Crohns disease Status: Acute
--- NOTE | 2017-12-15 18:18 | PQF ---
PROVIDER RESPONSE TEXT: Patient does not have HIV. Confirmed via blood test. REVIEWER QUERY TEXT: Clinical Validity Additional clinical indicators are required to support your documented diagnosis of HIV . Please respond and also state in your next progress note whether: -- Condition exists and also please provide clinical indicators to support the diagnosis -- Condition does not exist and also please provide amended documentation in the medical record to cl nito -- Unable to provide additional clarity regarding the diagnosis -- Other, please specify The patient's Clinical Indicators include: The [facility] template has the following documentation: HIV: Yes. If the patient has HIV please clarify if it is Asymptomatic /HIV + only, Symptomatic/AIDS or ruled out. Query created by: Radha Pagan on 12/15/2017 11:03 AM Electronically signed by: Ashia Rosa 12/15/2017 6:15 PM
[2017-12-16] MEDS: Piperacillin/Tazobact 3.375 GM in Sodium Chloride 0.9% 100 ML IVPB SCH ×2 (01:10→09:10)
[2017-12-16] MEDS: Dextrose 5%/Lactated Ringer's 1,000 ML IV SCH (01:12)
[2017-12-16 08:15] VITALS: BP 112/67; RESP 20; TEMP 97.5; O2SAT 99
[2017-12-16] MEDS: Insulin Regular 100 units/ml SC SCH ×2 (08:57→13:03)
[2017-12-16] MEDS: Enoxaparin 40 mg Syringe SC SCH (08:59)
[2017-12-16] MEDS: MESALAMINE 1.2 GM PO SCH (09:00)
[2017-12-16] MEDS: PHENYLEPHRINE HCL 10 MG PO SCH (09:01)
[2017-12-16] MEDS: Pantoprazole 40 mg EC Tab PO SCH (09:02)
[2017-12-16 09:12] VITALS: PULSE 72
== END 2017-12-16 13:15 | disposition home or self-care (01) | DRG 153 ==
LOC: H.ER 20:38 → H.ERHOLD 23:22 → H.MEDSURG1 12-13 02:18
PROVIDERS: ADMIT Family Medicine; ATTEND Family Medicine
DX: J01.90 Acute sinusitis, unspecified (principal); K51.90 Ulcerative colitis, unspecified, without complications; A04.72 Enterocolitis due to Clostridium difficile, not specified as recurrent; E10.65 Type 1 diabetes mellitus with hyperglycemia; E10.40 Type 1 diabetes mellitus with diabetic neuropathy, unspecified; I10 Essential (primary) hypertension; J45.909 Unspecified asthma, uncomplicated; Z91.14 Patient's other noncompliance with medication regimen; Z79.4 Long term (current) use of insulin; Z72.0 Tobacco use; K40.90 Unilateral inguinal hernia, without obstruction or gangrene, not specified as recurrent; Z88.1 Allergy status to other antibiotic agents; K58.9 Irritable bowel syndrome, unspecified